=== PATIENT | male | born 1955 | race Caucasian/White ===

== ENCOUNTER 2019-01-10 02:21 | Inpatient (IN) | payer MEDICARE, MEDICAID ==
[2019-01-10 03:21] LABS: % BASOPHILS 0.5 % (0.0-2.0); % EOSINOPHILS 0.7 % (0.0-5.0); % LYMPHOCYTES 26.1 % (20.0-50.0); % NEUTROPHILS 62.7 % (40.0-80.0); HEMATOCRIT 51.6 % (41.0-60); HEMOGLOBIN 17.7 gm/dL (12-16); LYMPHOCYTE ABSOLUTE 1.4 Th/cmm (1.5-3.0); MEAN CELL VOLUME 101.6 fl (80-99); MEAN CORPUSCULAR HEMOGLOBIN 34.8 pg (27.0-31.0); MEAN CORPUSCULAR HGB CONC 34.2 pg (28.0-36.0); MEAN PLATELET VOLUME 7.9 fl; MONOCYTE ABSOLUTE 0.6 Th/cmm (0.3-1.0); NEUTROPHILE ABSOLUTE 3.5 Th/cmm (1.8-8.0); PLATELET COUNT 154 Th/cmm (150-400); RED BLOOD COUNT 5.08 Mil/cmm (3.80-5.80); RED CELL DISTRIBUTION WIDTH 14.1 % (11.5-20.0); WHITE BLOOD COUNT 5.5 Th/cmm (4.8-10.8)
[2019-01-10 03:36] LABS: ALB/GLOB RATIO 1.4 (1.0-1.8); ALBUMIN 3.6 gm/dL (4.2-5.5); ALKALINE PHOSPHATASE 121 U/L (34-104); ANION GAP 17.1 (7.0-16.0); BUN - UREA NITROGEN 12 mg/dL (7-25); CALCIUM SERUM 8.5 mg/dL (8.6-10.3); CARBON DIOXIDE 22.9 mEq/L (21.0-31.0); CHLORIDE 99 mEq/L (98-107); CREATININE - SERUM 0.9 mg/dL (0.7-1.3); CREATININE KINASE 222 U/L (30-223); GFR AFRICAN-AMERICAN > 60.0 ml/min (>90); GFR NON AFRICAN-AMERICAN > 60.0 ml/min; GLUCOSE 224 mg/dL (70-105); SGOT 108 U/L (13-39); SGPT/ALT 66 U/L (7-52); SODIUM SERUM 136 mEq/L (136-145); TOTAL PROTEIN,SERUM 6.2 gm/dL (6.0-8.3)
[2019-01-10] MEDS ORDERED: Potassium Chloride 20 mEq ER Tab PO ONE ×2 (03:38→03:41)
[2019-01-10 03:48] LABS: URINE SOURCE RANDOM
[2019-01-10 03:50] LABS: URINE BILIRUBIN NEGATIVE (NEGATIVE); URINE BLOOD SMALL (NEGATIVE); URINE GLUCOSE (UA) 100 mg/dL (NEGATIVE); URINE KETONE TRACE mg/dL (NEGATIVE); URINE LEUKOCYTE ESTERASE SMALL (NEGATIVE); URINE MICROSCOPIC INDICATED? YES; URINE NITRATE POSITIVE (NEGATIVE); URINE PH 7.5 (4.6 - 8.0); URINE PROTEIN >=300 mg/dL (NEGATIVE)
[2019-01-10 04:06] LABS: URINE CLARITY CLOUDY (CLEAR); URINE COLOR YELLOW
[2019-01-10 04:08] LABS: URINE BACTERIA FEW /hpf (NONE SEEN); URINE EPITHELIAL CELLS RARE /lpf (FEW); URINE RBC 0-2 /hpf (0-5)
--- NOTE | 2019-01-10 04:14 | ED Physician Chart ---
ED Chief Complaint/HPI - Patient Information Date Seen:: 01/10/19 Time Seen:: 04:13 Chief Complaint:: Sexually inappropriate behavior History of Present Illness:: 63 yo male with history of hypertension and stroke, was a previous resident at [facility]. Due to inappropriate sexual behavior, patient received a restraining order from entering [facility]. Patient became homeless and unable to take care of himself. Patient drank some alcohol earlier today and was put on 5150 hold for gravely disabled by police. Patient was then brought by police to ER for further evaluation and management. Allergies:: Allergies Allergy/AdvReac Type Severity Reaction Status Date / Time No Known Allergies Allergy Verified 01/10/19 02:35 Vitals:: Vital Signs - 8 hr 01/10/19 01/10/19 01/10/19 02:25 02:52 03:43 Temp 98.0 F HR 106 98 96 RR 20 18 BP 182/113 151/100 O2 Sat % 98 97 ED Review of Systems - Review of Systems General/Constitutional: No fever, No chills, Weakness Skin: No bruising Head: No headache Eyes: No pain ENT: No nasal drainage Neck: No neck pain Cardio Vascular: No chest pain Pulmonary: No SOB GI: No nausea, No vomiting G/U: Other (urinary incontinent) Musculoskeletal: No bone or joint pain Neurological: Weakness ED Past Medical History - Past Medical History Past Medical History: HTN, CVA/TIA Social History: Smoker (Former smoker), No Alcohol, No Drug Use Surgical History: other (Stomach surgery due to ulcers, s/p tracheostomy) Family Medical History - Family Member Mother History Unknown: Yes ED Physical Exam - Physical Examination General/Constitutional: Awake, Alert Head: Atraumatic Eyes: PERRL, EOMI Skin: No ecchymosis ENMT: Nasal exam nl Neck: No nuchal rigidity Respiratory: Clear to Auscultation, No Wheeze/Rhonchi/Rales Cardio Vascular: RRR, No murmur, gallop, rubs, NL S1 S2 GI: No tenderness/rebounding/guarding Other comments:: Urinary incontinent Extremities: No tenderness or effusion Other Neuro/Psych comments:: Weakness of BLE ED Labs/Radiology/EKG Results - Lab Results Results: Laboratory Tests 01/10/19 01/10/19 01/10/19 03:10 03:10 03:10 WBC 5.5 RBC 5.08 Hgb 17.7 Hct 51.6 MCV 101.6 H MCH 34.8 H MCHC Differential 34.2 RDW 14.1 Plt Count 154 MPV 7.9 Neutrophils % 62.7 Lymphocytes % 26.1 Monocytes % 10.0 Eosinophils % 0.7 Basophils % 0.5 Sodium Potassium Chloride Carbon Dioxide Anion Gap BUN Creatinine Est GFR ( Amer) Est GFR (Non-Af Amer) BUN/Creatinine Ratio Glucose Calcium Total Bilirubin AST ALT Alkaline Phosphatase Creatine Kinase Troponin I 0.04 Total Protein Albumin Globulin Albumin/Globulin Ratio Urine Source Urine Color Urine Clarity Urine pH Ur Specific [place] Urine Protein Urine Glucose (UA) Urine Ketones Urine Blood Urine Nitrate Urine Bilirubin Urine Urobilinogen Ur Leukocyte Esterase Urine RBC Urine WBC Ur Epithelial Cells Urine Bacteria Ethyl Alcohol 103 H 01/10/19 01/10/19 03:10 03:35 WBC RBC Hgb Hct MCV MCH MCHC Differential RDW Plt Count MPV Neutrophils % Lymphocytes % Monocytes % Eosinophils % Basophils % Sodium 136 Potassium 3.0 L Chloride 99 Carbon Dioxide 22.9 Anion Gap 17.1 H BUN 12 Creatinine 0.9 Est GFR ( Amer) > 60.0 Est GFR (Non-Af Amer) > 60.0 BUN/Creatinine Ratio 13.3 Glucose 224 H Calcium 8.5 L Total Bilirubin 2.0 H AST 108 H ALT 66 H Alkaline Phosphatase 121 H Creatine Kinase 222 Troponin I Total Protein 6.2 Albumin 3.6 L Globulin 2.6 Albumin/Globulin Ratio 1.4 Urine Source RANDOM Urine Color YELLOW Urine Clarity CLOUDY Urine pH 7.5 Ur Specific [place] 1.025 Urine Protein >=300 Urine Glucose (UA) 100 H Urine Ketones TRACE Urine Blood SMALL H Urine Nitrate POSITIVE H Urine Bilirubin NEGATIVE Urine Urobilinogen 2.0 Ur Leukocyte Esterase SMALL H Urine RBC 0-2 H Urine WBC 6-10 Ur Epithelial Cells RARE Urine Bacteria FEW Ethyl Alcohol ED Assessment - Assessment General Assessment: Hypertension Hypokalemia Urinary tract infection Transaminitis due to alcohol use Polysubstance use History of stroke S/p tracheotomy On 515 hold for gravely disabled Assessment/Comments:: CBC, CMP, Troponin, TSH, UA EKG KCL 40 mEq PO Clonidine 0.1 mg PO Keflex 500 mg PO Admit to geropsych unit for further evaluation and management ED Septic Shock - . Is Septic Shock (SBP<90, OR Lactate>4 mmol\L) present?: No - <6hrs of presentation: Vital Signs: Vital Signs - 8 hr 01/10/19 01/10/19 01/10/19 02:25 02:52 03:43 Temp 98.0 F HR 106 98 96 RR 20 18 BP 182/113 151/100 O2 Sat % 98 97 ED Reassessment (Disposition) - Reassessment Reassessment Condition:: Improved - Patient Disposition Discharge/Transfer:: [facility]/in this hosp Admitting Medical Physician:: Braulio Ramirez Admitting Psych Physician:: Je Mckinley
[2019-01-10 05:00] VITALS: BP 179/98
[2019-01-10] MEDS ORDERED: Magnesium Hydroxide (MOM) 30 mL UDC PO PRN (05:02)
--- NOTE | 2019-01-10 06:35 | History and Physical ---
History of Present Illness - HPI Chief Complaint: psychosis HPI: 63 yo male presents to [facility] with change in behavior noted by the staff at [facility]. Patient has a previous medical history of hypertension and stroke. Patient received a restraining order from entering [facility] due to inappropriate sexual behavior. Patient became homeless and unable to take care of himself. Patient drank some alcohol earlier today and was put on 5150 hold for gravely disabled by police. Patient was then brought by police to ER for further evaluation and management. While in the ER patient had initial labwork which revealed the following WBC 5.5 H/H 17/51 plat 154k Na 136 K 3.0 Bun/Cr 12/0.9 glu 224 AST 108 ALT 66 Alk 121 UA blood small Leuko small Nitrite pos ethyl alcohol 103 Patient was subsequently admitted for further evaluation and treatment. Vital Signs: Last Vital Signs Temp 97.2 F 01/10/19 04:35 Pulse 103 01/10/19 04:35 Resp 20 01/10/19 04:35 BP 179/98 01/10/19 05:00 Pulse Ox 94 01/10/19 04:35 Past Medical History Cardiovascular: Report: HTN [employer]: Report: CVA GI: Report: No Pertinent Hx Psych: Report: Psychosis Musculoskeletal: Report: Other (contractures to the upper and lower ext) Rheumatologic: Report: No pertinent Hx Infectious Disease: Report: No Pertinent Hx Renal/: Report: No Pertinent Hx Endocrine: Report: No Pertinent Hx Dermatology: Report: No Pertinent Hx - Past Surgical History Past Surgical History: No pertinent Hx Family Medical History - Family Member Mother History Unknown: Yes Ethnicity: Social History Smoke: No Alcohol: None Drugs: None Lives: Homeless - Medications Home Medications: Home Medication Medication Instructions Recorded Type NK [No Home Meds] 01/10/19 History - Allergies Allergies/Adverse Reactions: Allergies Allergy/AdvReac Type Severity Reaction Status Date / Time No Known Allergies Allergy Verified 01/10/19 04:59 Review of Systems - Review of Systems Constitutional: Report: No Significant Eyes: Report: No Significant ENT: Report: No Significant Respiratory: Report: No Significant Cardiovascular: Report: No Significant Gastrointestinal: Report: No Significant Genitourinary: Report: No Significant Musculoskeletal: Report: No Significant Skin: Report: No Significant Neurological: Report: Weakness (contractures to left upper extremities) Physical Exam - Physical Exam HEENT: Report: Ears Nose Throat within normal limits, Pharnyx within normal limits Neck: Report: Within normal limits Cardiovascular Systems: Report: +s1/s2 noted, Regular, Rate and Rhythm Respiratory: Report: Breath Sounds are within normal limits Abdomen: Report: Non-tender to palpation Back: Report: Inspection of back is within normal limits. Extremities: Report: Non-tender to palpation. Skin: Report: Color of skin is within normal limits Neuro/Psych: Report: Mood affect is within normal limits, A+Ox3 - Lab Results All Lab Results last 24 hours: Laboratory Results - last 24 hr 01/10/19 01/10/19 01/10/19 03:10 03:10 03:10 WBC 5.5 RBC 5.08 Hgb 17.7 Hct 51.6 MCV 101.6 H MCH 34.8 H MCHC Differential 34.2 RDW 14.1 Plt Count 154 MPV 7.9 Neutrophils % 62.7 Lymphocytes % 26.1 Monocytes % 10.0 Eosinophils % 0.7 Basophils % 0.5 Sodium Potassium Chloride Carbon Dioxide Anion Gap BUN Creatinine Est GFR ( Amer) Est GFR (Non-Af Amer) BUN/Creatinine Ratio Glucose Calcium Total Bilirubin AST ALT Alkaline Phosphatase Creatine Kinase Troponin I 0.04 Total Protein Albumin Globulin Albumin/Globulin Ratio TSH 0.35 Urine Source Urine Color Urine Clarity Urine pH Ur Specific [place] Urine Protein Urine Glucose (UA) Urine Ketones Urine Blood Urine Nitrate Urine Bilirubin Urine Urobilinogen Ur Leukocyte Esterase Urine RBC Urine WBC Ur Epithelial Cells Urine Bacteria Ethyl Alcohol 01/10/19 01/10/19 01/10/19 03:10 03:10 03:35 WBC RBC Hgb Hct MCV MCH MCHC Differential RDW Plt Count MPV Neutrophils % Lymphocytes % Monocytes % Eosinophils % Basophils % Sodium 136 Potassium 3.0 L Chloride 99 Carbon Dioxide 22.9 Anion Gap 17.1 H BUN 12 Creatinine 0.9 Est GFR ( Amer) > 60.0 Est GFR (Non-Af Amer) > 60.0 BUN/Creatinine Ratio 13.3 Glucose 224 H Calcium 8.5 L Total Bilirubin 2.0 H AST 108 H ALT 66 H Alkaline Phosphatase 121 H Creatine Kinase 222 Troponin I Total Protein 6.2 Albumin 3.6 L Globulin 2.6 Albumin/Globulin Ratio 1.4 TSH Urine Source RANDOM Urine Color YELLOW Urine Clarity CLOUDY Urine pH 7.5 Ur Specific [place] 1.025 Urine Protein >=300 Urine Glucose (UA) 100 H Urine Ketones TRACE Urine Blood SMALL H Urine Nitrate POSITIVE H Urine Bilirubin NEGATIVE Urine Urobilinogen 2.0 Ur Leukocyte Esterase SMALL H Urine RBC 0-2 H Urine WBC 6-10 Ur Epithelial Cells RARE Urine Bacteria FEW Ethyl Alcohol 103 H - Assessment Assessment: psychosis UTI hypokalemia alcohol intoxication HTN CVA insomnia constipation - Plan Plan: admit to [facility] start cipro 500mg PO bid K 40meq PO daily
[2019-01-10] MEDS: Multivitamin Tab PO SCH (09:14)
--- NOTE | 2019-01-11 07:09 | Psychiatric Evaluation ---
DATE OF SERVICE: 01/10/2019 CHIEF COMPLAINT: "He was crying." HISTORY OF PRESENT ILLNESS: A 63-year-old male with history of hypertension, stroke, somewhat difficult to understand. The patient brought in due to apparently inappropriate sexual behavior, has received a restraining order from [facility]. The patient is drinking alcohol, not making any sense, concerns about his ability to really care for his basic needs. The patient yelling and stating he wants to leave immediately. The patient apparently also has a restraining order from another patient's family. The patient is angry, uncooperative and noted to be agitated upon assessment. PAST PSYCHIATRIC HISTORY: Unclear. FAMILY HISTORY: Unclear. SOCIAL HISTORY: Unclear. Apparently and possibly homeless. MEDICATIONS: Noted. MENTAL STATUS EXAMINATION: Stated age. Speech is hard to understand. Mood "okay." Affect upset. Thought processes were hard to assess and hard to follow. No overt SI or HI. Poor impulse control. No overt psychotic symptoms. PROVISIONAL DIAGNOSES: Mood, unspecified and anxiety, unspecified. Under medical, please see full H and P ESTIMATED LENGTH OF STAY: 5-7 days. ASSESSMENT: The patient requiring hospitalization for unruly behaviors, agitated behaviors, unable to be cared for at a lower level of care. PLAN: We will continue to monitor, titrate and adjust medications. Increase collateral. [facility]# [id number]
[2019-01-11] MEDS: Multivitamin Tab PO SCH (08:50)
[2019-01-11] MEDS: Maalox 30 mL Cup PO PRN (13:07)
--- NOTE | 2019-01-12 01:52 | Progress Notes ---
DATE: 01/11/2019 SUBJECTIVE: The patient currently in the hospital for inappropriate behaviors, mostly withdrawn, keeps to himself. Staff noting that he is suspicious of others, very disoriented at times, irritable, making some nonsensical statements. Fair sleep, fair appetite, he is pretty disheveled, unkempt. ASSESSMENT: Ongoing safety concerns. Concerns about his ability to really stay safe at a lower level of care. Concerns about his impulse control. PLAN: We will continue to monitor and initiate medications for mood and impulsivity. We will continue to monitor. [facility]# [id number]
--- NOTE | 2019-01-12 05:45 | General Progress Note ---
Subjective - Review of Systems Service Date: 01/12/19 Subjective: Patient is awake, alert, afebrile VS T 97.6 P 93 BP 150/67 R 18 Objective - Results Result Diagrams: 01/10/19 03:10 01/10/19 03:10 Recent Labs: Laboratory Last Values WBC 5.5 Th/cmm (4.8-10.8) 01/10/19 03:10 RBC 5.08 Mil/cmm (3.80-5.80) 01/10/19 03:10 Hgb 17.7 gm/dL (12-16) 01/10/19 03:10 Hct 51.6 % (41.0-60) 01/10/19 03:10 MCV 101.6 fl (80-99) H 01/10/19 03:10 MCH 34.8 pg (27.0-31.0) H 01/10/19 03:10 MCHC Differential 34.2 pg (28.0-36.0) 01/10/19 03:10 RDW 14.1 % (11.5-20.0) 01/10/19 03:10 Plt Count 154 Th/cmm (150-400) 01/10/19 03:10 MPV 7.9 fl 01/10/19 03:10 Neutrophils % 62.7 % (40.0-80.0) 01/10/19 03:10 Lymphocytes % 26.1 % (20.0-50.0) 01/10/19 03:10 Monocytes % 10.0 % (2.0-10.0) 01/10/19 03:10 Eosinophils % 0.7 % (0.0-5.0) 01/10/19 03:10 Basophils % 0.5 % (0.0-2.0) 01/10/19 03:10 Sodium 136 mEq/L (136-145) 01/10/19 03:10 Potassium 3.0 mEq/L (3.5-5.1) L 01/10/19 03:10 Chloride 99 mEq/L (98-107) 01/10/19 03:10 Carbon Dioxide 22.9 mEq/L (21.0-31.0) 01/10/19 03:10 Anion Gap 17.1 (7.0-16.0) H 01/10/19 03:10 BUN 12 mg/dL (7-25) 01/10/19 03:10 Creatinine 0.9 mg/dL (0.7-1.3) 01/10/19 03:10 Est GFR ( Amer) > 60.0 ml/min (>90) 01/10/19 03:10 Est GFR (Non-Af Amer) > 60.0 ml/min 01/10/19 03:10 BUN/Creatinine Ratio 13.3 01/10/19 03:10 Glucose 224 mg/dL (70-105) H 01/10/19 03:10 Calcium 8.5 mg/dL (8.6-10.3) L 01/10/19 03:10 Total Bilirubin 2.0 mg/dL (0.3-1.0) H 01/10/19 03:10 AST 108 U/L (13-39) H 01/10/19 03:10 ALT 66 U/L (7-52) H 01/10/19 03:10 Alkaline Phosphatase 121 U/L (34-104) H 01/10/19 03:10 Creatine Kinase 222 U/L (30-223) 01/10/19 03:10 Troponin I 0.04 ng/mL (0.01-0.05) 01/10/19 03:10 Total Protein 6.2 gm/dL (6.0-8.3) 01/10/19 03:10 Albumin 3.6 gm/dL (4.2-5.5) L 01/10/19 03:10 Globulin 2.6 gm/dL 01/10/19 03:10 Albumin/Globulin Ratio 1.4 (1.0-1.8) 01/10/19 03:10 TSH 0.35 uIU/ml (0.34-5.60) 01/10/19 03:10 Urine Source RANDOM 01/10/19 03:35 Urine Color YELLOW 01/10/19 03:35 Urine Clarity CLOUDY (CLEAR) 01/10/19 03:35 Urine pH 7.5 (4.6 - 8.0) 01/10/19 03:35 Ur Specific [place] 1.025 (1.005-1.030) 01/10/19 03:35 Urine Protein >=300 mg/dL (NEGATIVE) 01/10/19 03:35 Urine Glucose (UA) 100 mg/dL (NEGATIVE) H 01/10/19 03:35 Urine Ketones TRACE mg/dL (NEGATIVE) 01/10/19 03:35 Urine Blood SMALL (NEGATIVE) H 01/10/19 03:35 Urine Nitrate POSITIVE (NEGATIVE) H 01/10/19 03:35 Urine Bilirubin NEGATIVE (NEGATIVE) 01/10/19 03:35 Urine Urobilinogen 2.0 E.U./dL (0.2 - 1.0) 01/10/19 03:35 Ur Leukocyte Esterase SMALL (NEGATIVE) H 01/10/19 03:35 Urine RBC 0-2 /hpf (0-5) H 01/10/19 03:35 Urine WBC 6-10 /hpf (0-5) 01/10/19 03:35 Ur Epithelial Cells RARE /lpf (FEW) 01/10/19 03:35 Urine Bacteria FEW /hpf (NONE SEEN) 01/10/19 03:35 Ethyl Alcohol 103 mg/dL (0-10) H 01/10/19 03:10 - Physical Exam Vitals and I&O: Vital Signs Temp 97.6 F 01/11/19 20:53 Pulse 93 01/11/19 20:53 Resp 18 01/11/19 20:53 BP 150/97 01/11/19 20:53 Pulse Ox 96 01/11/19 20:53 Intake & Output 01/11/19 01/11/19 01/12/19 06:59 18:59 06:59 Intake Total 120 1400 Balance 120 1400 Intake: Oral 120 1400 Other: # Voids 3 4 # Bowel Movements 1 Stool Characteristics Formed Active Medications: Current Medications Acetaminophen (Tylenol) 650 mg PO Q4HR PRN PRN Reason: Mild Pain / Temp above 100 Stop: 03/11/19 05:01 Al Hydrox/Mg Hydrox/Simethicone (Maalox) 30 ml PO Q4HR PRN PRN Reason: GI DISTRESS Stop: 03/11/19 05:01 Last Admin: 01/11/19 13:07 Dose: 30 ml Escitalopram Oxalate (Lexapro) 5 mg PO DAILY [facility]A; Protocol Stop: 03/13/19 08:59 Lorazepam (Ativan) 0.5 mg PO Q4HR PRN; Protocol PRN Reason: Anxiety Stop: 02/09/19 05:01 Last Admin: 01/10/19 21:00 Dose: 0.5 mg Multivitamins/Vitamin C (Theragran) 1 tab PO DAILY MILA Stop: 03/11/19 08:59 Last Admin: 01/11/19 08:50 Dose: 1 tab Zolpidem Tartrate (Ambien) 5 mg PO HS PRN PRN Reason: Insomnia Stop: 03/11/19 05:01 Last Admin: 01/10/19 21:00 Dose: 5 mg General: Alert, No acute distress HEENT: Atraumatic, PERRLA, EOMI Neck: Supple Cardiovascular: Regular rate, Normal S1, Normal S2 Lungs: Clear to auscultation Abdomen: Bowel sounds Extremities: no Clubbing, no Cyanosis Assessment/Plan - Assessment Assessment: psychosis ativan insomnia constipation elevated BP - Plan Plan: admit to [facility] add clonidine
[2019-01-12] MEDS ORDERED: Potassium Chloride 20 mEq ER Tab PO SCH (09:00)
[2019-01-12] MEDS: Multivitamin Tab PO SCH (09:29)
[2019-01-12] MEDS: Escitalopram Oxalate 5 mg Tab PO SCH (09:29)
[2019-01-12] MEDS: Therahoney Gel 42.5gm Tube TP SCH (17:49)
[2019-01-12] MEDS ORDERED: Magnesium Hydroxide (MOM) 30 mL UDC PO PRN (21:17)
--- NOTE | 2019-01-13 03:18 | Progress Notes ---
DATE: 01/12/2019 SUBJECTIVE: The patient slept for about 6 hours last night, making some statements about his history, why is here, but it is really hard to understand his thought processes, not making too much sense, currently in the hospital because of bizarre behaviors, hypersexual behaviors. He remains preoccupied, lethargic, suspicious of others, needing high level of prompting, redirection, help. He remains impulsive, unpredictable, recent dose initiation of Lexapro. PLAN: We will continue to monitor. MEDICATIONS: Noted. Ongoing safety concerns. JOB# [id number]
--- NOTE | 2019-01-13 05:49 | General Progress Note ---
Subjective - Review of Systems Service Date: 01/13/19 Subjective: Patient is awake, alert, afebrile VS T 97.4 P 96 BP 170/102 R 20 Objective - Results Result Diagrams: 01/10/19 03:10 01/10/19 03:10 Recent Labs: Laboratory Last Values WBC 5.5 Th/cmm (4.8-10.8) 01/10/19 03:10 RBC 5.08 Mil/cmm (3.80-5.80) 01/10/19 03:10 Hgb 17.7 gm/dL (12-16) 01/10/19 03:10 Hct 51.6 % (41.0-60) 01/10/19 03:10 MCV 101.6 fl (80-99) H 01/10/19 03:10 MCH 34.8 pg (27.0-31.0) H 01/10/19 03:10 MCHC Differential 34.2 pg (28.0-36.0) 01/10/19 03:10 RDW 14.1 % (11.5-20.0) 01/10/19 03:10 Plt Count 154 Th/cmm (150-400) 01/10/19 03:10 MPV 7.9 fl 01/10/19 03:10 Neutrophils % 62.7 % (40.0-80.0) 01/10/19 03:10 Lymphocytes % 26.1 % (20.0-50.0) 01/10/19 03:10 Monocytes % 10.0 % (2.0-10.0) 01/10/19 03:10 Eosinophils % 0.7 % (0.0-5.0) 01/10/19 03:10 Basophils % 0.5 % (0.0-2.0) 01/10/19 03:10 Sodium 136 mEq/L (136-145) 01/10/19 03:10 Potassium 3.0 mEq/L (3.5-5.1) L 01/10/19 03:10 Chloride 99 mEq/L (98-107) 01/10/19 03:10 Carbon Dioxide 22.9 mEq/L (21.0-31.0) 01/10/19 03:10 Anion Gap 17.1 (7.0-16.0) H 01/10/19 03:10 BUN 12 mg/dL (7-25) 01/10/19 03:10 Creatinine 0.9 mg/dL (0.7-1.3) 01/10/19 03:10 Est GFR ( Amer) > 60.0 ml/min (>90) 01/10/19 03:10 Est GFR (Non-Af Amer) > 60.0 ml/min 01/10/19 03:10 BUN/Creatinine Ratio 13.3 01/10/19 03:10 Glucose 224 mg/dL (70-105) H 01/10/19 03:10 Calcium 8.5 mg/dL (8.6-10.3) L 01/10/19 03:10 Total Bilirubin 2.0 mg/dL (0.3-1.0) H 01/10/19 03:10 AST 108 U/L (13-39) H 01/10/19 03:10 ALT 66 U/L (7-52) H 01/10/19 03:10 Alkaline Phosphatase 121 U/L (34-104) H 01/10/19 03:10 Creatine Kinase 222 U/L (30-223) 01/10/19 03:10 Troponin I 0.04 ng/mL (0.01-0.05) 01/10/19 03:10 Total Protein 6.2 gm/dL (6.0-8.3) 01/10/19 03:10 Albumin 3.6 gm/dL (4.2-5.5) L 01/10/19 03:10 Globulin 2.6 gm/dL 01/10/19 03:10 Albumin/Globulin Ratio 1.4 (1.0-1.8) 01/10/19 03:10 TSH 0.35 uIU/ml (0.34-5.60) 01/10/19 03:10 Urine Source RANDOM 01/10/19 03:35 Urine Color YELLOW 01/10/19 03:35 Urine Clarity CLOUDY (CLEAR) 01/10/19 03:35 Urine pH 7.5 (4.6 - 8.0) 01/10/19 03:35 Ur Specific [place] 1.025 (1.005-1.030) 01/10/19 03:35 Urine Protein >=300 mg/dL (NEGATIVE) 01/10/19 03:35 Urine Glucose (UA) 100 mg/dL (NEGATIVE) H 01/10/19 03:35 Urine Ketones TRACE mg/dL (NEGATIVE) 01/10/19 03:35 Urine Blood SMALL (NEGATIVE) H 01/10/19 03:35 Urine Nitrate POSITIVE (NEGATIVE) H 01/10/19 03:35 Urine Bilirubin NEGATIVE (NEGATIVE) 01/10/19 03:35 Urine Urobilinogen 2.0 E.U./dL (0.2 - 1.0) 01/10/19 03:35 Ur Leukocyte Esterase SMALL (NEGATIVE) H 01/10/19 03:35 Urine RBC 0-2 /hpf (0-5) H 01/10/19 03:35 Urine WBC 6-10 /hpf (0-5) 01/10/19 03:35 Ur Epithelial Cells RARE /lpf (FEW) 01/10/19 03:35 Urine Bacteria FEW /hpf (NONE SEEN) 01/10/19 03:35 Ethyl Alcohol 103 mg/dL (0-10) H 01/10/19 03:10 RPR NONREACTIVE (NONREACTIVE) 01/10/19 03:10 - Physical Exam Vitals and I&O: Vital Signs Temp 97.4 F 01/12/19 20:00 Pulse 96 01/12/19 20:00 Resp 20 01/12/19 20:00 BP 170/102 01/12/19 20:00 Pulse Ox 96 01/12/19 20:00 Intake & Output 01/12/19 01/12/19 01/13/19 06:59 18:59 06:59 Intake Total 120 1500 Balance 120 1500 Intake: Oral 120 1500 Other: # Voids 3 3 # Bowel Movements 0 0 0 Stool Characteristics Formed Formed Active Medications: Current Medications Acetaminophen (Tylenol) 650 mg PO Q4HR PRN PRN Reason: Mild Pain / Temp above 100 Stop: 03/11/19 05:01 Al Hydrox/Mg Hydrox/Simethicone (Maalox) 30 ml PO Q4HR PRN PRN Reason: GI DISTRESS Stop: 03/11/19 05:01 Last Admin: 01/11/19 13:07 Dose: 30 ml Ciprofloxacin (Cipro) 500 mg PO BID [facility] Stop: 03/13/19 08:59 Last Admin: 01/12/19 17:49 Dose: 500 mg Escitalopram Oxalate (Lexapro) 5 mg PO DAILY [facility]; Protocol Stop: 03/13/19 08:59 Last Admin: 01/12/19 09:29 Dose: 5 mg Lorazepam (Ativan) 0.5 mg PO Q4HR PRN; Protocol PRN Reason: Anxiety Stop: 02/09/19 05:01 Last Admin: 01/12/19 17:49 Dose: 0.5 mg Magnesium Hydroxide (Milk Of Magnesia) 30 ml PO HS PRN PRN Reason: Constipation Stop: 03/13/19 21:16 Last Admin: 01/12/19 21:28 Dose: 30 ml Multivitamins/Vitamin C (Theragran) 1 tab PO DAILY [facility] Stop: 03/11/19 08:59 Last Admin: 01/12/19 09:29 Dose: 1 tab Wound Care/Dressing Products (Therahoney) 1 appl TP DAILY MIL[facility] Stop: 03/13/19 17:14 Last Admin: 01/12/19 17:49 Dose: 1 appl Zolpidem Tartrate (Ambien) 5 mg PO HS PRN PRN Reason: Insomnia Stop: 03/11/19 05:01 Last Admin: 01/12/19 21:28 Dose: 5 mg General: Alert, No acute distress HEENT: Atraumatic, PERRLA, EOMI Neck: Supple Cardiovascular: Regular rate, Normal S1, Normal S2 Lungs: Clear to auscultation Abdomen: Bowel sounds Extremities: no Clubbing, no Cyanosis Assessment/Plan - Assessment Assessment: psychosis UTI hypokalemia alcohol intoxication HTN elevated CVA insomnia constipation - Plan [facility] 500mg PO bid K 40meq PO daily will add clonidine PRN
[2019-01-13] MEDS: Multivitamin Tab PO SCH (08:48)
[2019-01-13] MEDS: Escitalopram Oxalate 5 mg Tab PO SCH (08:49)
[2019-01-13] MEDS: Therahoney Gel 42.5gm Tube TP SCH (08:49)
[2019-01-13 15:19] LABS: ANION GAP 11.9 (7.0-16.0); BUN - UREA NITROGEN 20 mg/dL (7-25); CALCIUM SERUM 9.1 mg/dL (8.6-10.3); CARBON DIOXIDE 24.8 mEq/L (21.0-31.0); CHLORIDE 103 mEq/L (98-107); GFR AFRICAN-AMERICAN > 60.0 ml/min (>90); GFR NON AFRICAN-AMERICAN > 60.0 ml/min; GLUCOSE 237 mg/dL (70-105); POTASSIUM SERUM 3.7 mEq/L (3.5-5.1); SODIUM SERUM 136 mEq/L (136-145)
[2019-01-13] MEDS ORDERED: Probiotic Screen MC PRN (15:36)
[2019-01-13] MEDS: Maalox 30 mL Cup PO PRN (17:22)
[2019-01-13] MEDS: Lactobacillus Rhamnosus GG 15 Billion CFU CAP.SPRINK PO SCH (18:00)
--- NOTE | 2019-01-14 00:21 | Progress Notes ---
DATE: 01/13/2019 PSYCHIATRIC PROGRESS NOTE SUBJECTIVE: Chart was reviewed and the patient interviewed. Also discussed the patient's condition with the staff and reviewed records and labs. Dr. Velazquez covering for Dr. Mckinley. The patient is alert and oriented x 3. The patient gets aggressive and is still in angry and irritable mood, and he left the [facility] in angry and irritable mood, and then was brought into the hospital because of increased paranoia and also disoriented at times. The patient is still having episodes of feeling paranoia and also angry and easily agitated. The patient also is nonsensical and making nonsensical statements. The patient also had sexually inappropriate behavior at times, but not since his admission. ASSESSMENT: The patient is still in angry mood and agitated. TREATMENT PLAN: The patient started on Lexapro 5 mg every day and Ativan on a p.r.n. basis. We will continue same dose and continue to monitor his behavior closely. JOB# [id number]
[2019-01-14] MEDS: Multivitamin Tab PO SCH (08:52)
[2019-01-14] MEDS: Lactobacillus Rhamnosus GG 15 Billion CFU CAP.SPRINK PO SCH (08:54)
[2019-01-14] MEDS: Escitalopram Oxalate 5 mg Tab PO SCH (08:54)
[2019-01-14] MEDS: Maalox 30 mL Cup PO PRN ×3 (08:55→18:12)
--- NOTE | 2019-01-14 09:06 | General Progress Note ---
Subjective - Review of Systems Service Date: 01/14/19 Subjective: Patient is awake, alert, afebrile Blood sugars elevated 200's VS T 98.1 P 90 BP 148/94 R 20 Objective - Results Result Diagrams: 01/10/19 03:10 01/13/19 15:00 Recent Labs: Laboratory Last Values WBC 5.5 Th/cmm (4.8-10.8) 01/10/19 03:10 RBC 5.08 Mil/cmm (3.80-5.80) 01/10/19 03:10 Hgb 17.7 gm/dL (12-16) 01/10/19 03:10 Hct 51.6 % (41.0-60) 01/10/19 03:10 MCV 101.6 fl (80-99) H 01/10/19 03:10 MCH 34.8 pg (27.0-31.0) H 01/10/19 03:10 MCHC Differential 34.2 pg (28.0-36.0) 01/10/19 03:10 RDW 14.1 % (11.5-20.0) 01/10/19 03:10 Plt Count 154 Th/cmm (150-400) 01/10/19 03:10 MPV 7.9 fl 01/10/19 03:10 Neutrophils % 62.7 % (40.0-80.0) 01/10/19 03:10 Lymphocytes % 26.1 % (20.0-50.0) 01/10/19 03:10 Monocytes % 10.0 % (2.0-10.0) 01/10/19 03:10 Eosinophils % 0.7 % (0.0-5.0) 01/10/19 03:10 Basophils % 0.5 % (0.0-2.0) 01/10/19 03:10 Sodium 136 mEq/L (136-145) 01/13/19 15:00 Potassium 3.7 mEq/L (3.5-5.1) 01/13/19 15:00 Chloride 103 mEq/L (98-107) 01/13/19 15:00 Carbon Dioxide 24.8 mEq/L (21.0-31.0) 01/13/19 15:00 Anion Gap 11.9 (7.0-16.0) 01/13/19 15:00 BUN 20 mg/dL (7-25) 01/13/19 15:00 Creatinine 1.0 mg/dL (0.7-1.3) 01/13/19 15:00 Est GFR ( Amer) > 60.0 ml/min (>90) 01/13/19 15:00 Est GFR (Non-Af Amer) > 60.0 ml/min 01/13/19 15:00 BUN/Creatinine Ratio 20.0 01/13/19 15:00 Glucose 237 mg/dL (70-105) H 01/13/19 15:00 Calcium 9.1 mg/dL (8.6-10.3) 01/13/19 15:00 Total Bilirubin 2.0 mg/dL (0.3-1.0) H 01/10/19 03:10 AST 108 U/L (13-39) H 01/10/19 03:10 ALT 66 U/L (7-52) H 01/10/19 03:10 Alkaline Phosphatase 121 U/L (34-104) H 01/10/19 03:10 Creatine Kinase 222 U/L (30-223) 01/10/19 03:10 Troponin I 0.04 ng/mL (0.01-0.05) 01/10/19 03:10 Total Protein 6.2 gm/dL (6.0-8.3) 01/10/19 03:10 Albumin 3.6 gm/dL (4.2-5.5) L 01/10/19 03:10 Globulin 2.6 gm/dL 01/10/19 03:10 Albumin/Globulin Ratio 1.4 (1.0-1.8) 01/10/19 03:10 TSH 0.35 uIU/ml (0.34-5.60) 01/10/19 03:10 Urine Source RANDOM 01/10/19 03:35 Urine Color YELLOW 01/10/19 03:35 Urine Clarity CLOUDY (CLEAR) 01/10/19 03:35 Urine pH 7.5 (4.6 - 8.0) 01/10/19 03:35 Ur Specific [place] 1.025 (1.005-1.030) 01/10/19 03:35 Urine Protein >=300 mg/dL (NEGATIVE) 01/10/19 03:35 Urine Glucose (UA) 100 mg/dL (NEGATIVE) H 01/10/19 03:35 Urine Ketones TRACE mg/dL (NEGATIVE) 01/10/19 03:35 Urine Blood SMALL (NEGATIVE) H 01/10/19 03:35 Urine Nitrate POSITIVE (NEGATIVE) H 01/10/19 03:35 Urine Bilirubin NEGATIVE (NEGATIVE) 01/10/19 03:35 Urine Urobilinogen 2.0 E.U./dL (0.2 - 1.0) 01/10/19 03:35 Ur Leukocyte Esterase SMALL (NEGATIVE) H 01/10/19 03:35 Urine RBC 0-2 /hpf (0-5) H 01/10/19 03:35 Urine WBC 6-10 /hpf (0-5) 01/10/19 03:35 Ur Epithelial Cells RARE /lpf (FEW) 01/10/19 03:35 Urine Bacteria FEW /hpf (NONE SEEN) 01/10/19 03:35 Ethyl Alcohol 103 mg/dL (0-10) H 01/10/19 03:10 RPR NONREACTIVE (NONREACTIVE) 01/10/19 03:10 - Physical Exam Vitals and I&O: Vital Signs Temp 98.1 F 01/14/19 05:57 Pulse 90 01/14/19 05:57 Resp 20 01/14/19 05:57 BP 148/94 01/14/19 05:57 Pulse Ox 96 01/14/19 05:57 Intake & Output 01/13/19 01/14/19 01/14/19 18:59 06:59 18:59 Intake Total 1000 480 Output Total 1 Balance 1000 479 Intake: Oral 1000 480 Output: Urine/Stool Mix 1 Other: # Voids 5 1 # Bowel Movements 0 1 Active Medications: Current Medications Acetaminophen (Tylenol) 650 mg PO Q4HR PRN PRN Reason: Mild Pain / Temp above 100 Stop: 03/11/19 05:01 Al Hydrox/Mg Hydrox/Simethicone (Maalox) 30 ml PO Q4HR PRN PRN Reason: GI DISTRESS Stop: 03/11/19 05:01 Last Admin: 01/14/19 08:55 Dose: 30 ml Ciprofloxacin (Cipro) 500 mg PO BID MILA Stop: 03/13/19 08:59 Last Admin: 01/14/19 08:53 Dose: 500 mg Escitalopram Oxalate (Lexapro) 5 mg PO DAILY MILA; Protocol Stop: 03/13/19 08:59 Last Admin: 01/14/19 08:54 Dose: 5 mg Lactobacillus Rhamnosus (Culturelle 15b) 1 each PO DAILY MILA Stop: 03/14/19 15:59 Last Admin: 01/14/19 08:54 Dose: 1 each Lorazepam (Ativan) 0.5 mg PO Q4HR PRN; Protocol PRN Reason: Anxiety Stop: 02/09/19 05:01 Last Admin: 01/14/19 08:54 Dose: 0.5 mg Magnesium Hydroxide (Milk Of Magnesia) 30 ml PO HS PRN PRN Reason: Constipation Stop: 03/13/19 21:16 Last Admin: 01/12/19 21:28 Dose: 30 ml Metformin HCl (Glucophage) 500 mg PO BIDWM MILA Stop: 03/15/19 17:59 Miscellaneous (Probiotic Screen) 1 ea MC PRN PRN PRN Reason: PROTOCOL Stop: 03/14/19 15:35 Multivitamins/Vitamin C (Theragran) 1 tab PO DAILY MILA Stop: 03/11/19 08:59 Last Admin: 01/14/19 08:52 Dose: 1 tab Wound Care/Dressing Products (Therahoney) 1 appl TP DAILY MILA Stop: 03/13/19 17:14 Last Admin: 01/13/19 08:49 Dose: 1 appl Zolpidem Tartrate (Ambien) 5 mg PO HS PRN PRN Reason: Insomnia Stop: 03/11/19 05:01 Last Admin: 01/13/19 21:17 Dose: 5 mg General: Alert, No acute distress HEENT: Atraumatic, PERRLA, EOMI Neck: Supple Cardiovascular: Regular rate, Normal S1, Normal S2 Lungs: Clear to auscultation Abdomen: Bowel sounds Extremities: no Clubbing, no Cyanosis Assessment/Plan - Assessment Assessment: psychosis UTI on Cipro hypokalemia -- resolved alcohol intoxication HTN elevated .. clonidine added CVA insomnia constipation hyperglycemia ... add Metformin 500mg PO BID - Plan Plan: admit to [facility] start cipro 500mg PO bid K 40meq PO daily will add clonidine PRN will start Metformin 500mg PO BID
[2019-01-14] MEDS: Therahoney Gel 42.5gm Tube TP SCH (17:31)
--- NOTE | 2019-01-14 22:21 | Progress Notes ---
DATE: 01/14/2019 PSYCHIATRIC PROGRESS NOTE SUBJECTIVE: Chart was reviewed and the patient interviewed. Also discussed the patient's condition with the staff and reviewed records and labs. The patient is still having episodes of aggression and irritability. The patient also still has disorganized thoughts and still needs redirections. Also is still having sexual inappropriate behavior at times and making inappropriate sexual comments to nurses. Otherwise, the patient started to take Lexapro 5 mg every day with no side effects. ASSESSMENT: The patient is still agitated and still needs treatment for both his behavior as well as his addiction to alcohol. TREATMENT PLAN: Continue monitoring his behavior and his condition closely and continue adjusting psychotropic medications and followup and work on rehabilitation. JOB# [id number]
--- NOTE | 2019-01-15 08:17 | General Progress Note ---
Subjective - Review of Systems Service Date: 01/15/19 Subjective: Patient is awake, alert, afebrile Blood sugars elevated 200's VS T 97.9 P 78 BP 156/92 R 18 Objective - Results Result Diagrams: 01/10/19 03:10 01/13/19 15:00 Recent Labs: Laboratory Last Values WBC 5.5 Th/cmm (4.8-10.8) 01/10/19 03:10 RBC 5.08 Mil/cmm (3.80-5.80) 01/10/19 03:10 Hgb 17.7 gm/dL (12-16) 01/10/19 03:10 Hct 51.6 % (41.0-60) 01/10/19 03:10 MCV 101.6 fl (80-99) H 01/10/19 03:10 MCH 34.8 pg (27.0-31.0) H 01/10/19 03:10 MCHC Differential 34.2 pg (28.0-36.0) 01/10/19 03:10 RDW 14.1 % (11.5-20.0) 01/10/19 03:10 Plt Count 154 Th/cmm (150-400) 01/10/19 03:10 MPV 7.9 fl 01/10/19 03:10 Neutrophils % 62.7 % (40.0-80.0) 01/10/19 03:10 Lymphocytes % 26.1 % (20.0-50.0) 01/10/19 03:10 Monocytes % 10.0 % (2.0-10.0) 01/10/19 03:10 Eosinophils % 0.7 % (0.0-5.0) 01/10/19 03:10 Basophils % 0.5 % (0.0-2.0) 01/10/19 03:10 Sodium 136 mEq/L (136-145) 01/13/19 15:00 Potassium 3.7 mEq/L (3.5-5.1) 01/13/19 15:00 Chloride 103 mEq/L (98-107) 01/13/19 15:00 Carbon Dioxide 24.8 mEq/L (21.0-31.0) 01/13/19 15:00 Anion Gap 11.9 (7.0-16.0) 01/13/19 15:00 BUN 20 mg/dL (7-25) 01/13/19 15:00 Creatinine 1.0 mg/dL (0.7-1.3) 01/13/19 15:00 Est GFR ( Amer) > 60.0 ml/min (>90) 01/13/19 15:00 Est GFR (Non-Af Amer) > 60.0 ml/min 01/13/19 15:00 BUN/Creatinine Ratio 20.0 01/13/19 15:00 Glucose 237 mg/dL (70-105) H 01/13/19 15:00 Calcium 9.1 mg/dL (8.6-10.3) 01/13/19 15:00 Total Bilirubin 2.0 mg/dL (0.3-1.0) H 01/10/19 03:10 AST 108 U/L (13-39) H 01/10/19 03:10 ALT 66 U/L (7-52) H 01/10/19 03:10 Alkaline Phosphatase 121 U/L (34-104) H 01/10/19 03:10 Creatine Kinase 222 U/L (30-223) 01/10/19 03:10 Troponin I 0.04 ng/mL (0.01-0.05) 01/10/19 03:10 Total Protein 6.2 gm/dL (6.0-8.3) 01/10/19 03:10 Albumin 3.6 gm/dL (4.2-5.5) L 01/10/19 03:10 Globulin 2.6 gm/dL 01/10/19 03:10 Albumin/Globulin Ratio 1.4 (1.0-1.8) 01/10/19 03:10 TSH 0.35 uIU/ml (0.34-5.60) 01/10/19 03:10 Urine Source RANDOM 01/10/19 03:35 Urine Color YELLOW 01/10/19 03:35 Urine Clarity CLOUDY (CLEAR) 01/10/19 03:35 Urine pH 7.5 (4.6 - 8.0) 01/10/19 03:35 Ur Specific [place] 1.025 (1.005-1.030) 01/10/19 03:35 Urine Protein >=300 mg/dL (NEGATIVE) 01/10/19 03:35 Urine Glucose (UA) 100 mg/dL (NEGATIVE) H 01/10/19 03:35 Urine Ketones TRACE mg/dL (NEGATIVE) 01/10/19 03:35 Urine Blood SMALL (NEGATIVE) H 01/10/19 03:35 Urine Nitrate POSITIVE (NEGATIVE) H 01/10/19 03:35 Urine Bilirubin NEGATIVE (NEGATIVE) 01/10/19 03:35 Urine Urobilinogen 2.0 E.U./dL (0.2 - 1.0) 01/10/19 03:35 Ur Leukocyte Esterase SMALL (NEGATIVE) H 01/10/19 03:35 Urine RBC 0-2 /hpf (0-5) H 01/10/19 03:35 Urine WBC 6-10 /hpf (0-5) 01/10/19 03:35 Ur Epithelial Cells RARE /lpf (FEW) 01/10/19 03:35 Urine Bacteria FEW /hpf (NONE SEEN) 01/10/19 03:35 Ethyl Alcohol 103 mg/dL (0-10) H 01/10/19 03:10 RPR NONREACTIVE (NONREACTIVE) 01/10/19 03:10 - Physical Exam Vitals and I&O: Vital Signs Temp 97.9 F 01/15/19 05:56 Pulse 78 01/15/19 05:56 Resp 18 01/15/19 05:56 BP 156/92 01/15/19 05:56 Pulse Ox 93 01/15/19 05:56 Intake & Output 01/14/19 01/15/19 01/15/19 18:59 06:59 18:59 Intake Total 900 300 Output Total 1 Balance 900 299 Intake: Oral 900 300 Output: Urine/Stool Mix 1 Other: # Voids 4 2 # Bowel Movements 0 0 Stool Characteristics Formed Active Medications: Current Medications Acetaminophen (Tylenol) 650 mg PO Q4HR PRN PRN Reason: Mild Pain / Temp above 100 Stop: 03/11/19 05:01 Al Hydrox/Mg Hydrox/Simethicone (Maalox) 30 ml PO Q4HR PRN PRN Reason: GI DISTRESS Stop: 03/11/19 05:01 Last Admin: 01/14/19 18:12 Dose: 30 ml Ciprofloxacin (Cipro) 500 mg PO BID MILA Stop: 03/13/19 08:59 Last Admin: 01/14/19 17:31 Dose: 500 mg Escitalopram Oxalate (Lexapro) 5 mg PO DAILY MILA; Protocol Stop: 03/13/19 08:59 Last Admin: 01/14/19 08:54 Dose: 5 mg Lactobacillus Rhamnosus (Culturelle 15b) 1 each PO DAILY MILA Stop: 03/14/19 15:59 Last Admin: 01/14/19 08:54 Dose: 1 each Lorazepam (Ativan) 0.5 mg PO Q4HR PRN; Protocol PRN Reason: Anxiety Stop: 02/09/19 05:01 Last Admin: 01/14/19 18:11 Dose: 0.5 mg Magnesium Hydroxide (Milk Of Magnesia) 30 ml PO HS PRN PRN Reason: Constipation Stop: 03/13/19 21:16 Last Admin: 01/12/19 21:28 Dose: 30 ml Metformin HCl (Glucophage) 500 mg PO BIDWM MILA Stop: 03/15/19 17:59 Last Admin: 01/14/19 18:10 Dose: 500 mg Miscellaneous (Probiotic Screen) 1 ea MC PRN PRN PRN Reason: PROTOCOL Stop: 03/14/19 15:35 Multivitamins/Vitamin C (Theragran) 1 tab PO DAILY MILA Stop: 03/11/19 08:59 Last Admin: 01/14/19 08:52 Dose: 1 tab Wound Care/Dressing Products (Therahoney) 1 appl TP DAILY MILA Stop: 03/13/19 17:14 Last Admin: 01/14/19 17:31 Dose: 1 appl Zolpidem Tartrate (Ambien) 5 mg PO HS PRN PRN Reason: Insomnia Stop: 03/11/19 05:01 Last Admin: 01/14/19 20:57 Dose: 5 mg General: Alert, No acute distress HEENT: Atraumatic, PERRLA, EOMI Neck: Supple Cardiovascular: Regular rate, Normal S1, Normal S2 Lungs: Clear to auscultation Abdomen: Bowel sounds Extremities: no Clubbing, no Cyanosis Assessment/Plan - Assessment Assessment: psychosis UTI on Cipro hypokalemia -- resolved alcohol intoxication HTN elevated .. clonidine added CVA insomnia constipation hyperglycemia ... add Metformin 500mg PO BID - Plan Plan: admit to [facility] start cipro 500mg PO bid K 40meq PO daily will add clonidine PRN will start Metformin 500mg PO BID
[2019-01-15] MEDS: Therahoney Gel 42.5gm Tube TP SCH (08:39)
[2019-01-15] MEDS: Escitalopram Oxalate 5 mg Tab PO SCH (08:40)
[2019-01-15] MEDS: Lactobacillus Rhamnosus GG 15 Billion CFU CAP.SPRINK PO SCH (08:40)
[2019-01-15] MEDS: Multivitamin Tab PO SCH (08:40)
--- NOTE | 2019-01-16 00:21 | Progress Notes ---
DATE: 01/15/2019 SUBJECTIVE: The patient in the hospital for unruly behaviors, increased agitation, hypersexual behaviors. The patient generally well oriented, difficult to understand, sometimes derails, tangential, mostly isolative, withdrawn. Staff noting he has been generally calm and cooperative. No outbursts. Fair sleep and fair appetite, mostly keeps to himself. PLAN: We will continue to monitor. Medications were noted. We will slowly titrate and adjust medications as tolerated. Increase collateral. JOB# [id number]
[2019-01-16] MEDS ORDERED: GLUCAGON HCl 1 MG KIT IM PRN (08:14)
[2019-01-16] MEDS ORDERED: Dextrose 50% 50 mL Abboject IVP PRN (08:14)
--- NOTE | 2019-01-16 08:16 | General Progress Note ---
Subjective - Review of Systems Service Date: 01/16/19 Subjective: Patient is awake, alert, afebrile Blood sugars elevated 200's VS T 98.3 P 69 BP 156/92 R 18 Objective - Results Result Diagrams: 01/10/19 03:10 01/13/19 15:00 Recent Labs: Laboratory Last Values WBC 5.5 Th/cmm (4.8-10.8) 01/10/19 03:10 RBC 5.08 Mil/cmm (3.80-5.80) 01/10/19 03:10 Hgb 17.7 gm/dL (12-16) 01/10/19 03:10 Hct 51.6 % (41.0-60) 01/10/19 03:10 MCV 101.6 fl (80-99) H 01/10/19 03:10 MCH 34.8 pg (27.0-31.0) H 01/10/19 03:10 MCHC Differential 34.2 pg (28.0-36.0) 01/10/19 03:10 RDW 14.1 % (11.5-20.0) 01/10/19 03:10 Plt Count 154 Th/cmm (150-400) 01/10/19 03:10 MPV 7.9 fl 01/10/19 03:10 Neutrophils % 62.7 % (40.0-80.0) 01/10/19 03:10 Lymphocytes % 26.1 % (20.0-50.0) 01/10/19 03:10 Monocytes % 10.0 % (2.0-10.0) 01/10/19 03:10 Eosinophils % 0.7 % (0.0-5.0) 01/10/19 03:10 Basophils % 0.5 % (0.0-2.0) 01/10/19 03:10 Sodium 136 mEq/L (136-145) 01/13/19 15:00 Potassium 3.7 mEq/L (3.5-5.1) 01/13/19 15:00 Chloride 103 mEq/L (98-107) 01/13/19 15:00 Carbon Dioxide 24.8 mEq/L (21.0-31.0) 01/13/19 15:00 Anion Gap 11.9 (7.0-16.0) 01/13/19 15:00 BUN 20 mg/dL (7-25) 01/13/19 15:00 Creatinine 1.0 mg/dL (0.7-1.3) 01/13/19 15:00 Est GFR ( Amer) > 60.0 ml/min (>90) 01/13/19 15:00 Est GFR (Non-Af Amer) > 60.0 ml/min 01/13/19 15:00 BUN/Creatinine Ratio 20.0 01/13/19 15:00 Glucose 237 mg/dL (70-105) H 01/13/19 15:00 Calcium 9.1 mg/dL (8.6-10.3) 01/13/19 15:00 Total Bilirubin 2.0 mg/dL (0.3-1.0) H 01/10/19 03:10 AST 108 U/L (13-39) H 01/10/19 03:10 ALT 66 U/L (7-52) H 01/10/19 03:10 Alkaline Phosphatase 121 U/L (34-104) H 01/10/19 03:10 Creatine Kinase 222 U/L (30-223) 01/10/19 03:10 Troponin I 0.04 ng/mL (0.01-0.05) 01/10/19 03:10 Total Protein 6.2 gm/dL (6.0-8.3) 01/10/19 03:10 Albumin 3.6 gm/dL (4.2-5.5) L 01/10/19 03:10 Globulin 2.6 gm/dL 01/10/19 03:10 Albumin/Globulin Ratio 1.4 (1.0-1.8) 01/10/19 03:10 TSH 0.35 uIU/ml (0.34-5.60) 01/10/19 03:10 Urine Source RANDOM 01/10/19 03:35 Urine Color YELLOW 01/10/19 03:35 Urine Clarity CLOUDY (CLEAR) 01/10/19 03:35 Urine pH 7.5 (4.6 - 8.0) 01/10/19 03:35 Ur Specific [place] 1.025 (1.005-1.030) 01/10/19 03:35 Urine Protein >=300 mg/dL (NEGATIVE) 01/10/19 03:35 Urine Glucose (UA) 100 mg/dL (NEGATIVE) H 01/10/19 03:35 Urine Ketones TRACE mg/dL (NEGATIVE) 01/10/19 03:35 Urine Blood SMALL (NEGATIVE) H 01/10/19 03:35 Urine Nitrate POSITIVE (NEGATIVE) H 01/10/19 03:35 Urine Bilirubin NEGATIVE (NEGATIVE) 01/10/19 03:35 Urine Urobilinogen 2.0 E.U./dL (0.2 - 1.0) 01/10/19 03:35 Ur Leukocyte Esterase SMALL (NEGATIVE) H 01/10/19 03:35 Urine RBC 0-2 /hpf (0-5) H 01/10/19 03:35 Urine WBC 6-10 /hpf (0-5) 01/10/19 03:35 Ur Epithelial Cells RARE /lpf (FEW) 01/10/19 03:35 Urine Bacteria FEW /hpf (NONE SEEN) 01/10/19 03:35 Ethyl Alcohol 103 mg/dL (0-10) H 01/10/19 03:10 RPR NONREACTIVE (NONREACTIVE) 01/10/19 03:10 - Physical Exam Vitals and I&O: Vital Signs Temp 98.3 F 01/16/19 05:50 Pulse 69 01/16/19 05:50 Resp 19 01/16/19 05:50 BP 156/87 01/16/19 05:50 Pulse Ox 94 01/16/19 05:50 Intake & Output 01/15/19 01/16/19 01/16/19 18:59 06:59 18:59 Intake Total 180 Balance 180 Intake: Oral 180 Other: # Voids 4 2 # Bowel Movements 0 0 Stool Characteristics Formed Formed Active Medications: Current Medications Acetaminophen (Tylenol) 650 mg PO Q4HR PRN PRN Reason: Mild Pain / Temp above 100 Stop: 03/11/19 05:01 Al Hydrox/Mg Hydrox/Simethicone (Maalox) 30 ml PO Q4HR PRN PRN Reason: GI DISTRESS Stop: 03/11/19 05:01 Last Admin: 01/14/19 18:12 Dose: 30 ml Ciprofloxacin (Cipro) 500 mg PO BID [facility] Stop: 03/13/19 08:59 Last Admin: 01/15/19 17:13 Dose: 500 mg Escitalopram Oxalate (Lexapro) 7.5 mg PO DAILY MILA; Protocol Stop: 03/17/19 08:59 Lactobacillus Rhamnosus (Culturelle 15b) 1 each PO DAILY MILA Stop: 03/14/19 15:59 Last Admin: 01/15/19 08:40 Dose: 1 each Lorazepam (Ativan) 0.5 mg PO Q4HR PRN; Protocol PRN Reason: Anxiety Stop: 02/09/19 05:01 Last Admin: 01/14/19 18:11 Dose: 0.5 mg Magnesium Hydroxide (Milk Of Magnesia) 30 ml PO HS PRN PRN Reason: Constipation Stop: 03/13/19 21:16 Last Admin: 01/12/19 21:28 Dose: 30 ml Metformin HCl (Glucophage) 500 mg PO BIDWM MILA Stop: 03/15/19 17:59 Last Admin: 01/15/19 17:12 Dose: 500 mg Miscellaneous (Probiotic Screen) 1 ea MC PRN PRN PRN Reason: PROTOCOL Stop: 03/14/19 15:35 Multivitamins/Vitamin C (Theragran) 1 tab PO DAILY MILA Stop: 03/11/19 08:59 Last Admin: 01/15/19 08:40 Dose: 1 tab Wound Care/Dressing Products (Therahoney) 1 appl TP DAILY MILA Stop: 03/13/19 17:14 Last Admin: 01/15/19 08:39 Dose: 1 appl Zolpidem Tartrate (Ambien) 5 mg PO HS PRN PRN Reason: Insomnia Stop: 03/11/19 05:01 Last Admin: 01/15/19 23:36 Dose: 5 mg General: Alert, No acute distress HEENT: Atraumatic, PERRLA, EOMI Neck: Supple Cardiovascular: Regular rate, Normal S1, Normal S2 Lungs: Clear to auscultation Abdomen: Bowel sounds Extremities: no Clubbing, no Cyanosis Assessment/Plan - Assessment Assessment: psychosis UTI on Cipro PO hypokalemia -- resolved alcohol intoxication HTN elevated .. clonidine added CVA insomnia constipation hyperglycemia ... add Metformin 500mg PO BID - Plan Plan: admit to [facility] start cipro 500mg PO bid K 40meq PO daily will add clonidine PRN will start Metformin 500mg PO BID Nutritional Asmnt/Malnutr-PDOC - Dietary Evaluation Malnutrition Findings (Please click <Entered> for more info): Nutritional Asmnt/Malnutrition Start: 01/15/19 13: 54 Text: Status: Complete Freq: Protocol: Document 01/15/19 13:54 FANY (Rec: 01/15/19 14:04 FANY [email or web address]) Nutritional Asmnt/Malnutrition Patient General Information Nutritional Screening Moderate Risk Diagnosis psychosis Pertinent Medical Hx/Surgical Hx HTN, CVA/TIA, stomach surgery d/t ulcers, s/p tracheostomy Subjective Information Pt seen eating in his room, denied any question or concern about current diet/meals. Per EMR, PO intake 100%. Not appropriate to provide diabetic education d/t pt mental status. Current Diet Order/ Nutrition Support soft, NCS, cardiac, ELIF Pertinent Medications culturelle, glucophage, theragran Pertinent Labs 01/13 glucose 237 5/ K 3.0, Glucose 224, Ca 8.5 , alb 3.6 Nutritional Hx/Data Height 1.73 m Height (Calculated Centimeters) 172.7 Current Weight (lbs) 63.503 kg Weight (Calculated Kilograms) 63.5 Weight (Calculated Grams) 35362.9 [place] Body Weight 154 Body Mass Index (BMI) 21.2 Weight Status Approriate GI Symptoms GI Symptoms None Last BM 01/13 Difficult in: None Skin Integrity/Comment: redness. conrado 15 Current %PO Good (75-100%) Estimated Nutritional Goals BEE in Kcals: Using Current wt Calories/Kcals/Kg 25-30 Kcals Calculated 8975-4344 Protein: Using Current wt Protein g/k Protein Calculated 64 Fluid: ml 1600-1920ml (1ml/kcal) Nutritional Problem 1. Problem Problem altered nutrition related labs Etiology hyperglycemia Signs/Symptoms: glucose 224-237 Malnutrition Alert Is there a minimum of two criteria No selected? Query Text:Check all the applicable criteria. A minimum of two criteria are recommended for diagnosis of either severe or non-severe malnutrition. Malnutrition Related to Morbid Obesity Malnutrition related to morbid obesity No Intervention/Recommendation Comments 1. Continue with soft NCS, cardiac diet as ordered. MD to adjust insulin regimen for optimal glycemic control. 2. Monitor PO intake, wt, labs and skin integrity 3. F/U as low risk in 7 days Expected Outcomes/Goals Expected Outcomes/Goals 1. PO intake to meet at least 75% of nutritional needs. 2. Wt stability, skin to remain intact, labs to approach WNL.
[2019-01-16] MEDS: Therahoney Gel 42.5gm Tube TP SCH (08:24)
[2019-01-16] MEDS: Lactobacillus Rhamnosus GG 15 Billion CFU CAP.SPRINK PO SCH (08:24)
[2019-01-16] MEDS: Escitalopram Oxalate 5 mg Tab PO SCH (08:25)
[2019-01-16] MEDS: Multivitamin Tab PO SCH (08:25)
[2019-01-16] MEDS: INSULIN LISPRO SLIDING SCALE 100 UNITS/ML UNIT SUBQ SCH ×3 (12:01→20:39)
--- NOTE | 2019-01-16 13:09 | Progress Notes ---
DATE: 01/16/2019 SUBJECTIVE: The patient generally more cooperative, but isolative, withdrawn. The patient does use a diaper, needs a lot of redirection, prompting help with staff, sometimes socializes, mostly keeps to himself. No behavioral outbursts, ongoing concerns about hypersexual behaviors, poor impulse control, but generally seems to be showing signs and symptoms of improvement. No outlandish behaviors, no unruly behaviors. Over the weekend, Dr. Velazquez noting he was so aggressive, irritable, ongoing intense about impulse control. PLAN: We will continue to monitor. Currently on Lexapro 5 mg daily. I will be increasing his dosage to 7.5 mg to tamper ongoing impulsivities and mood symptoms. [facility]# [id number]
[2019-01-17] MEDS: INSULIN LISPRO SLIDING SCALE 100 UNITS/ML UNIT SUBQ SCH ×4 (06:37→20:43)
[2019-01-17] MEDS: Escitalopram Oxalate 5 mg Tab PO SCH (08:26)
[2019-01-17] MEDS: Lactobacillus Rhamnosus GG 15 Billion CFU CAP.SPRINK PO SCH (08:27)
[2019-01-17] MEDS: Multivitamin Tab PO SCH (08:27)
--- NOTE | 2019-01-17 08:35 | General Progress Note ---
Subjective - Review of Systems Service Date: 01/17/19 Subjective: Patient is awake, alert, afebrile Blood sugars elevated 200's VS T 98.0 P 72 BP 149/91 R 20 Objective - Results Result Diagrams: 01/10/19 03:10 01/13/19 15:00 Recent Labs: Laboratory Last Values WBC 5.5 Th/cmm (4.8-10.8) 01/10/19 03:10 RBC 5.08 Mil/cmm (3.80-5.80) 01/10/19 03:10 Hgb 17.7 gm/dL (12-16) 01/10/19 03:10 Hct 51.6 % (41.0-60) 01/10/19 03:10 MCV 101.6 fl (80-99) H 01/10/19 03:10 MCH 34.8 pg (27.0-31.0) H 01/10/19 03:10 MCHC Differential 34.2 pg (28.0-36.0) 01/10/19 03:10 RDW 14.1 % (11.5-20.0) 01/10/19 03:10 Plt Count 154 Th/cmm (150-400) 01/10/19 03:10 MPV 7.9 fl 01/10/19 03:10 Neutrophils % 62.7 % (40.0-80.0) 01/10/19 03:10 Lymphocytes % 26.1 % (20.0-50.0) 01/10/19 03:10 Monocytes % 10.0 % (2.0-10.0) 01/10/19 03:10 Eosinophils % 0.7 % (0.0-5.0) 01/10/19 03:10 Basophils % 0.5 % (0.0-2.0) 01/10/19 03:10 Sodium 136 mEq/L (136-145) 01/13/19 15:00 Potassium 3.7 mEq/L (3.5-5.1) 01/13/19 15:00 Chloride 103 mEq/L (98-107) 01/13/19 15:00 Carbon Dioxide 24.8 mEq/L (21.0-31.0) 01/13/19 15:00 Anion Gap 11.9 (7.0-16.0) 01/13/19 15:00 BUN 20 mg/dL (7-25) 01/13/19 15:00 Creatinine 1.0 mg/dL (0.7-1.3) 01/13/19 15:00 Est GFR ( Amer) > 60.0 ml/min (>90) 01/13/19 15:00 Est GFR (Non-Af Amer) > 60.0 ml/min 01/13/19 15:00 BUN/Creatinine Ratio 20.0 01/13/19 15:00 Glucose 237 mg/dL (70-105) H 01/13/19 15:00 POC Glucose 141 MG/DL (70 - 105) H 01/17/19 05:54 Calcium 9.1 mg/dL (8.6-10.3) 01/13/19 15:00 Total Bilirubin 2.0 mg/dL (0.3-1.0) H 01/10/19 03:10 AST 108 U/L (13-39) H 01/10/19 03:10 ALT 66 U/L (7-52) H 01/10/19 03:10 Alkaline Phosphatase 121 U/L (34-104) H 01/10/19 03:10 Creatine Kinase 222 U/L (30-223) 01/10/19 03:10 Troponin I 0.04 ng/mL (0.01-0.05) 01/10/19 03:10 Total Protein 6.2 gm/dL (6.0-8.3) 01/10/19 03:10 Albumin 3.6 gm/dL (4.2-5.5) L 01/10/19 03:10 Globulin 2.6 gm/dL 01/10/19 03:10 Albumin/Globulin Ratio 1.4 (1.0-1.8) 01/10/19 03:10 TSH 0.35 uIU/ml (0.34-5.60) 01/10/19 03:10 Urine Source RANDOM 01/10/19 03:35 Urine Color YELLOW 01/10/19 03:35 Urine Clarity CLOUDY (CLEAR) 01/10/19 03:35 Urine pH 7.5 (4.6 - 8.0) 01/10/19 03:35 Ur Specific [place] 1.025 (1.005-1.030) 01/10/19 03:35 Urine Protein >=300 mg/dL (NEGATIVE) 01/10/19 03:35 Urine Glucose (UA) 100 mg/dL (NEGATIVE) H 01/10/19 03:35 Urine Ketones TRACE mg/dL (NEGATIVE) 01/10/19 03:35 Urine Blood SMALL (NEGATIVE) H 01/10/19 03:35 Urine Nitrate POSITIVE (NEGATIVE) H 01/10/19 03:35 Urine Bilirubin NEGATIVE (NEGATIVE) 01/10/19 03:35 Urine Urobilinogen 2.0 E.U./dL (0.2 - 1.0) 01/10/19 03:35 Ur Leukocyte Esterase SMALL (NEGATIVE) H 01/10/19 03:35 Urine RBC 0-2 /hpf (0-5) H 01/10/19 03:35 Urine WBC 6-10 /hpf (0-5) 01/10/19 03:35 Ur Epithelial Cells RARE /lpf (FEW) 01/10/19 03:35 Urine Bacteria FEW /hpf (NONE SEEN) 01/10/19 03:35 Ethyl Alcohol 103 mg/dL (0-10) H 01/10/19 03:10 RPR NONREACTIVE (NONREACTIVE) 01/10/19 03:10 - Physical Exam Vitals and I&O: Vital Signs Temp 98 F 01/17/19 05:41 Pulse 72 01/17/19 05:41 Resp 20 01/17/19 05:41 BP 149/91 01/17/19 05:41 Pulse Ox 97 01/17/19 05:41 Intake & Output 01/16/19 01/17/19 01/17/19 18:59 06:59 18:59 Intake Total 500 Balance 500 Weight (lbs) 63.503 kg Intake: Oral 500 Other: # Voids 4 3 # Bowel Movements 1 0 Stool Characteristics Formed Weight Source Bedscale Active Medications: Current Medications Acetaminophen (Tylenol) 650 mg PO Q4HR PRN PRN Reason: Mild Pain / Temp above 100 Stop: 03/11/19 05:01 Al Hydrox/Mg Hydrox/Simethicone (Maalox) 30 ml PO Q4HR PRN PRN Reason: GI DISTRESS Stop: 03/11/19 05:01 Last Admin: 01/14/19 18:12 Dose: 30 ml Ciprofloxacin (Cipro) 500 mg PO BID MILA Stop: 03/13/19 08:59 Last Admin: 01/17/19 08:24 Dose: 500 mg Dextrose (D50w) 50 ml IVP PRN PRN PRN Reason: BS below 70 & not tolerate po Stop: 03/17/19 08:13 Dextrose (Glutose 40%) 18.75 gm PO PRN PRN PRN Reason: BS below 70 & tolerate po Stop: 03/17/19 08:13 Escitalopram Oxalate (Lexapro) 7.5 mg PO DAILY MILA; Protocol Stop: 03/17/19 08:59 Last Admin: 01/17/19 08:26 Dose: 7.5 mg Glucagon (Glucagen) 1 mg IM PRN PRN PRN Reason: BS below 70&dextrose ineffecti Stop: 03/17/19 08:13 Insulin Human Lispro (Humalog Insulin Sliding Scale) 0 units SUBQ ACHS MILA; Protocol Stop: 03/17/19 11:29 Last Admin: 01/17/19 06:37 Dose: Not Given Lactobacillus Rhamnosus (Culturelle 15b) 1 each PO DAILY MILA Stop: 03/14/19 15:59 Last Admin: 01/17/19 08:27 Dose: 1 each Lorazepam (Ativan) 0.5 mg PO Q4HR PRN; Protocol PRN Reason: Anxiety Stop: 02/09/19 05:01 Last Admin: 01/14/19 18:11 Dose: 0.5 mg Magnesium Hydroxide (Milk Of Magnesia) 30 ml PO HS PRN PRN Reason: Constipation Stop: 03/13/19 21:16 Last Admin: 01/12/19 21:28 Dose: 30 ml Metformin HCl (Glucophage) 500 mg PO BIDWM MILA Stop: 03/15/19 17:59 Last Admin: 01/17/19 08:24 Dose: 500 mg Miscellaneous (Probiotic Screen) 1 ea MC PRN PRN PRN Reason: PROTOCOL Stop: 03/14/19 15:35 Multivitamins/Vitamin C (Theragran) 1 tab PO DAILY MILA Stop: 03/11/19 08:59 Last Admin: 01/17/19 08:27 Dose: 1 tab Wound Care/Dressing Products (Therahoney) 1 appl TP DAILY MILA Stop: 03/13/19 17:14 Last Admin: 01/16/19 08:24 Dose: 1 appl Zolpidem Tartrate (Ambien) 5 mg PO HS PRN PRN Reason: Insomnia Stop: 03/11/19 05:01 Last Admin: 01/15/19 23:36 Dose: 5 mg General: Alert, No acute distress HEENT: Atraumatic, PERRLA, EOMI Neck: Supple Cardiovascular: Regular rate, Normal S1, Normal S2 Lungs: Clear to auscultation Abdomen: Bowel sounds Extremities: no Clubbing, no Cyanosis Assessment/Plan - Assessment Assessment: psychosis UTI on Cipro PO hypokalemia -- resolved alcohol intoxication HTN elevated .. clonidine added CVA insomnia constipation hyperglycemia ... add Metformin 500mg PO BID - Plan Plan: admit to [facility] start cipro 500mg PO bid K 40meq PO daily will add clonidine PRN will start Metformin 500mg PO BID Nutritional Asmnt/Malnutr-PDOC - Dietary Evaluation Malnutrition Findings (Please click <Entered> for more info): Nutritional Asmnt/Malnutrition Start: 01/15/19 13: 54 Text: Status: Complete Freq: Protocol: Document 01/15/19 13:54 [email or web address] (Rec: 01/15/19 14:04 [email or web address] [email or web address]) Nutritional Asmnt/Malnutrition Patient General Information Nutritional Screening Moderate Risk Diagnosis psychosis Pertinent Medical Hx/Surgical Hx HTN, CVA/TIA, stomach surgery d/t ulcers, s/p tracheostomy Subjective Information Pt seen eating in his room, denied any question or concern about current diet/meals. Per EMR, PO intake 100%. Not appropriate to provide diabetic education d/t pt mental status. Current Diet Order/ Nutrition Support soft, NCS, cardiac, ELIF Pertinent Medications culturelle, glucophage, theragran Pertinent Labs 01/13 glucose 237 5/8 K 3.0, Glucose 224, Ca 8.5 , alb 3.6 Nutritional Hx/Data Height 1.73 m Height (Calculated Centimeters) 172.7 Current Weight (lbs) 63.503 kg Weight (Calculated Kilograms) 63.5 Weight (Calculated Grams) 12498.9 [place] Body Weight 154 Body Mass Index (BMI) 21.2 Weight Status Approriate GI Symptoms GI Symptoms None Last BM 01/13 Difficult in: None Skin Integrity/Comment: redness. conrado 15 Current %PO Good (75-100%) Estimated Nutritional Goals BEE in Kcals: Using Current wt Calories/Kcals/Kg 25-30 Kcals Calculated 9065-0602 Protein: Using Current wt Protein g/k Protein Calculated 64 Fluid: ml 1600-1920ml (1ml/kcal) Nutritional Problem 1. Problem Problem altered nutrition related labs Etiology hyperglycemia Signs/Symptoms: glucose 224-237 Malnutrition Alert Is there a minimum of two criteria No selected? Query Text:Check all the applicable criteria. A minimum of two criteria are recommended for diagnosis of either severe or non-severe malnutrition. Malnutrition Related to Morbid Obesity Malnutrition related to morbid obesity No Intervention/Recommendation Comments 1. Continue with soft NCS, cardiac diet as ordered. MD to adjust insulin regimen for optimal glycemic control. 2. Monitor PO intake, wt, labs and skin integrity 3. F/U as low risk in 7 days Expected Outcomes/Goals Expected Outcomes/Goals 1. PO intake to meet at least 75% of nutritional needs. 2. Wt stability, skin to remain intact, labs to approach WNL.
[2019-01-17] MEDS: Therahoney Gel 42.5gm Tube TP SCH (10:26)
--- NOTE | 2019-01-17 19:23 | Progress Notes ---
DATE: 01/17/2019 SUBJECTIVE: The patient remains impulsive, ongoing concerns about impulsivity. He is generally calmer, more cooperative. The patient was [place]. [place] to go [place] to [place]. We are continuing to look for placement. Fair sleep, fair appetite. The patient is loud at times, unpredictable, but generally calmer, still some confusion noted, withdrawn, unable to really care for his basic needs. We are trying to help him with placement. We will continue to monitor. MEDICATIONS: Noted. [facility]# [id number]
[2019-01-18] MEDS: INSULIN LISPRO SLIDING SCALE 100 UNITS/ML UNIT SUBQ SCH ×4 (06:29→20:43)
--- NOTE | 2019-01-18 08:21 | General Progress Note ---
Subjective - Review of Systems Service Date: 01/18/19 Subjective: Patient is awake, alert, afebrile Blood sugars elevated 200's VS T 98.0 P 93 BP 132/86 R 18 Objective - Results Result Diagrams: 01/10/19 03:10 01/13/19 15:00 Recent Labs: Laboratory Last Values WBC 5.5 Th/cmm (4.8-10.8) 01/10/19 03:10 RBC 5.08 Mil/cmm (3.80-5.80) 01/10/19 03:10 Hgb 17.7 gm/dL (12-16) 01/10/19 03:10 Hct 51.6 % (41.0-60) 01/10/19 03:10 MCV 101.6 fl (80-99) H 01/10/19 03:10 MCH 34.8 pg (27.0-31.0) H 01/10/19 03:10 MCHC Differential 34.2 pg (28.0-36.0) 01/10/19 03:10 RDW 14.1 % (11.5-20.0) 01/10/19 03:10 Plt Count 154 Th/cmm (150-400) 01/10/19 03:10 MPV 7.9 fl 01/10/19 03:10 Neutrophils % 62.7 % (40.0-80.0) 01/10/19 03:10 Lymphocytes % 26.1 % (20.0-50.0) 01/10/19 03:10 Monocytes % 10.0 % (2.0-10.0) 01/10/19 03:10 Eosinophils % 0.7 % (0.0-5.0) 01/10/19 03:10 Basophils % 0.5 % (0.0-2.0) 01/10/19 03:10 Sodium 136 mEq/L (136-145) 01/13/19 15:00 Potassium 3.7 mEq/L (3.5-5.1) 01/13/19 15:00 Chloride 103 mEq/L (98-107) 01/13/19 15:00 Carbon Dioxide 24.8 mEq/L (21.0-31.0) 01/13/19 15:00 Anion Gap 11.9 (7.0-16.0) 01/13/19 15:00 BUN 20 mg/dL (7-25) 01/13/19 15:00 Creatinine 1.0 mg/dL (0.7-1.3) 01/13/19 15:00 Est GFR ( Amer) > 60.0 ml/min (>90) 01/13/19 15:00 Est GFR (Non-Af Amer) > 60.0 ml/min 01/13/19 15:00 BUN/Creatinine Ratio 20.0 01/13/19 15:00 Glucose 237 mg/dL (70-105) H 01/13/19 15:00 POC Glucose 129 MG/DL (70 - 105) H 01/18/19 06:27 Calcium 9.1 mg/dL (8.6-10.3) 01/13/19 15:00 Total Bilirubin 2.0 mg/dL (0.3-1.0) H 01/10/19 03:10 AST 108 U/L (13-39) H 01/10/19 03:10 ALT 66 U/L (7-52) H 01/10/19 03:10 Alkaline Phosphatase 121 U/L (34-104) H 01/10/19 03:10 Creatine Kinase 222 U/L (30-223) 01/10/19 03:10 Troponin I 0.04 ng/mL (0.01-0.05) 01/10/19 03:10 Total Protein 6.2 gm/dL (6.0-8.3) 01/10/19 03:10 Albumin 3.6 gm/dL (4.2-5.5) L 01/10/19 03:10 Globulin 2.6 gm/dL 01/10/19 03:10 Albumin/Globulin Ratio 1.4 (1.0-1.8) 01/10/19 03:10 TSH 0.35 uIU/ml (0.34-5.60) 01/10/19 03:10 Urine Source RANDOM 01/10/19 03:35 Urine Color YELLOW 01/10/19 03:35 Urine Clarity CLOUDY (CLEAR) 01/10/19 03:35 Urine pH 7.5 (4.6 - 8.0) 01/10/19 03:35 Ur Specific [place] 1.025 (1.005-1.030) 01/10/19 03:35 Urine Protein >=300 mg/dL (NEGATIVE) 01/10/19 03:35 Urine Glucose (UA) 100 mg/dL (NEGATIVE) H 01/10/19 03:35 Urine Ketones TRACE mg/dL (NEGATIVE) 01/10/19 03:35 Urine Blood SMALL (NEGATIVE) H 01/10/19 03:35 Urine Nitrate POSITIVE (NEGATIVE) H 01/10/19 03:35 Urine Bilirubin NEGATIVE (NEGATIVE) 01/10/19 03:35 Urine Urobilinogen 2.0 E.U./dL (0.2 - 1.0) 01/10/19 03:35 Ur Leukocyte Esterase SMALL (NEGATIVE) H 01/10/19 03:35 Urine RBC 0-2 /hpf (0-5) H 01/10/19 03:35 Urine WBC 6-10 /hpf (0-5) 01/10/19 03:35 Ur Epithelial Cells RARE /lpf (FEW) 01/10/19 03:35 Urine Bacteria FEW /hpf (NONE SEEN) 01/10/19 03:35 Ethyl Alcohol 103 mg/dL (0-10) H 01/10/19 03:10 RPR NONREACTIVE (NONREACTIVE) 01/10/19 03:10 - Physical Exam Vitals and I&O: Vital Signs Temp 98.0 F 01/17/19 20:06 Pulse 93 01/17/19 20:06 Resp 18 01/17/19 20:06 BP 132/86 01/17/19 20:06 Pulse Ox 92 01/17/19 20:06 Intake & Output 01/17/19 01/18/19 01/18/19 18:59 06:59 18:59 Intake Total 1200 120 Balance 1200 120 Intake: Oral 1200 120 Other: # Voids 2 # Bowel Movements 1 0 Stool Characteristics Formed Active Medications: Current Medications Acetaminophen (Tylenol) 650 mg PO Q4HR PRN PRN Reason: Mild Pain / Temp above 100 Stop: 03/11/19 05:01 Al Hydrox/Mg Hydrox/Simethicone (Maalox) 30 ml PO Q4HR PRN PRN Reason: GI DISTRESS Stop: 03/11/19 05:01 Last Admin: 01/14/19 18:12 Dose: 30 ml Ciprofloxacin (Cipro) 500 mg PO BID MILA Stop: 03/13/19 08:59 Last Admin: 01/17/19 16:07 Dose: 500 mg Dextrose (D50w) 50 ml IVP PRN PRN PRN Reason: BS below 70 & not tolerate po Stop: 03/17/19 08:13 Dextrose (Glutose 40%) 18.75 gm PO PRN PRN PRN Reason: BS below 70 & tolerate po Stop: 03/17/19 08:13 Escitalopram Oxalate (Lexapro) 7.5 mg PO DAILY MILA; Protocol Stop: 03/17/19 08:59 Last Admin: 01/17/19 08:26 Dose: 7.5 mg Glucagon (Glucagen) 1 mg IM PRN PRN PRN Reason: BS below 70&dextrose ineffecti Stop: 03/17/19 08:13 Insulin Human Lispro (Humalog Insulin Sliding Scale) 0 units SUBQ ACHS MILA; Protocol Stop: 03/17/19 11:29 Last Admin: 01/18/19 06:29 Dose: Not Given Lactobacillus Rhamnosus (Culturelle 15b) 1 each PO DAILY MILA Stop: 03/14/19 15:59 Last Admin: 01/17/19 08:27 Dose: 1 each Lorazepam (Ativan) 0.5 mg PO Q4HR PRN; Protocol PRN Reason: Anxiety Stop: 02/09/19 05:01 Last Admin: 01/14/19 18:11 Dose: 0.5 mg Magnesium Hydroxide (Milk Of Magnesia) 30 ml PO HS PRN PRN Reason: Constipation Stop: 03/13/19 21:16 Last Admin: 01/12/19 21:28 Dose: 30 ml Metformin HCl (Glucophage) 500 mg PO BIDWM MILA Stop: 03/15/19 17:59 Last Admin: 01/17/19 17:16 Dose: 500 mg Miscellaneous (Probiotic Screen) 1 ea MC PRN PRN PRN Reason: PROTOCOL Stop: 03/14/19 15:35 Multivitamins/Vitamin C (Theragran) 1 tab PO DAILY MILA Stop: 03/11/19 08:59 Last Admin: 01/17/19 08:27 Dose: 1 tab Wound Care/Dressing Products (Therahoney) 1 appl TP DAILY MILA Stop: 03/13/19 17:14 Last Admin: 01/17/19 10:26 Dose: 1 appl Zolpidem Tartrate (Ambien) 5 mg PO HS PRN PRN Reason: Insomnia Stop: 03/11/19 05:01 Last Admin: 01/15/19 23:36 Dose: 5 mg General: Alert, No acute distress HEENT: Atraumatic, PERRLA, EOMI Neck: Supple Cardiovascular: Regular rate, Normal S1, Normal S2 Lungs: Clear to auscultation Abdomen: Bowel sounds Extremities: no Clubbing, no Cyanosis Assessment/Plan - Assessment Assessment: psychosis UTI on Cipro PO hypokalemia -- resolved alcohol intoxication HTN elevated .. clonidine added CVA insomnia constipation hyperglycemia ... improving with Metformin - Plan Plan: admit to [facility] start cipro 500mg PO bid K 40meq PO daily will add clonidine PRN will start Metformin 500mg PO BID Nutritional Asmnt/Malnutr-PDOC - Dietary Evaluation Malnutrition Findings (Please click <Entered> for more info): Nutritional Asmnt/Malnutrition Start: 01/15/19 13: 54 Text: Status: Complete Freq: Protocol: Document 01/15/19 13:54 LCALIX (Rec: 01/15/19 14:04 ALIX [email or web address]) Nutritional Asmnt/Malnutrition Patient General Information Nutritional Screening Moderate Risk Diagnosis psychosis Pertinent Medical Hx/Surgical Hx HTN, CVA/TIA, stomach surgery d/t ulcers, s/p tracheostomy Subjective Information Pt seen eating in his room, denied any question or concern about current diet/meals. Per EMR, PO intake 100%. Not appropriate to provide diabetic education d/t pt mental status. Current Diet Order/ Nutrition Support soft, NCS, cardiac, ELIF Pertinent Medications culturelle, glucophage, theragran Pertinent Labs 01/13 glucose 237 5/8 K 3.0, Glucose 224, Ca 8.5 , alb 3.6 Nutritional Hx/Data Height 1.73 m Height (Calculated Centimeters) 172.7 Current Weight (lbs) 63.503 kg Weight (Calculated Kilograms) 63.5 Weight (Calculated Grams) 44203.9 [place] Body Weight 154 Body Mass Index (BMI) 21.2 Weight Status Approriate GI Symptoms GI Symptoms None Last BM 01/13 Difficult in: None Skin Integrity/Comment: redness. conrado 15 Current %PO Good (75-100%) Estimated Nutritional Goals BEE in Kcals: Using Current wt Calories/Kcals/Kg 25-30 Kcals Calculated 9458-0013 Protein: Using Current wt Protein g/k Protein Calculated 64 Fluid: ml 1600-1920ml (1ml/kcal) Nutritional Problem 1. Problem Problem altered nutrition related labs Etiology hyperglycemia Signs/Symptoms: glucose 224-237 Malnutrition Alert Is there a minimum of two criteria No selected? Query Text:Check all the applicable criteria. A minimum of two criteria are recommended for diagnosis of either severe or non-severe malnutrition. Malnutrition Related to Morbid Obesity Malnutrition related to morbid obesity No Intervention/Recommendation Comments 1. Continue with soft NCS, cardiac diet as ordered. MD to adjust insulin regimen for optimal glycemic control. 2. Monitor PO intake, wt, labs and skin integrity 3. F/U as low risk in 7 days Expected Outcomes/Goals Expected Outcomes/Goals 1. PO intake to meet at least 75% of nutritional needs. 2. Wt stability, skin to remain intact, labs to approach WNL.
[2019-01-18] MEDS: Escitalopram Oxalate 5 mg Tab PO SCH (08:33)
[2019-01-18] MEDS: Lactobacillus Rhamnosus GG 15 Billion CFU CAP.SPRINK PO SCH (08:36)
[2019-01-18] MEDS: Therahoney Gel 42.5gm Tube TP SCH (08:37)
[2019-01-18] MEDS: Multivitamin Tab PO SCH (08:37)
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
--- NOTE | 2019-01-19 05:37 | General Progress Note ---
Subjective - Review of Systems Service Date: 01/19/19 Subjective: Patient is awake, alert, afebrile Blood sugars elevated 200's VS T 97.6 P 74 BP 149/81 R 19 Objective - Results Result Diagrams: 01/10/19 03:10 01/13/19 15:00 Recent Labs: Laboratory Last Values WBC 5.5 Th/cmm (4.8-10.8) 01/10/19 03:10 RBC 5.08 Mil/cmm (3.80-5.80) 01/10/19 03:10 Hgb 17.7 gm/dL (12-16) 01/10/19 03:10 Hct 51.6 % (41.0-60) 01/10/19 03:10 MCV 101.6 fl (80-99) H 01/10/19 03:10 MCH 34.8 pg (27.0-31.0) H 01/10/19 03:10 MCHC Differential 34.2 pg (28.0-36.0) 01/10/19 03:10 RDW 14.1 % (11.5-20.0) 01/10/19 03:10 Plt Count 154 Th/cmm (150-400) 01/10/19 03:10 MPV 7.9 fl 01/10/19 03:10 Neutrophils % 62.7 % (40.0-80.0) 01/10/19 03:10 Lymphocytes % 26.1 % (20.0-50.0) 01/10/19 03:10 Monocytes % 10.0 % (2.0-10.0) 01/10/19 03:10 Eosinophils % 0.7 % (0.0-5.0) 01/10/19 03:10 Basophils % 0.5 % (0.0-2.0) 01/10/19 03:10 Sodium 136 mEq/L (136-145) 01/13/19 15:00 Potassium 3.7 mEq/L (3.5-5.1) 01/13/19 15:00 Chloride 103 mEq/L (98-107) 01/13/19 15:00 Carbon Dioxide 24.8 mEq/L (21.0-31.0) 01/13/19 15:00 Anion Gap 11.9 (7.0-16.0) 01/13/19 15:00 BUN 20 mg/dL (7-25) 01/13/19 15:00 Creatinine 1.0 mg/dL (0.7-1.3) 01/13/19 15:00 Est GFR ( Amer) > 60.0 ml/min (>90) 01/13/19 15:00 Est GFR (Non-Af Amer) > 60.0 ml/min 01/13/19 15:00 BUN/Creatinine Ratio 20.0 01/13/19 15:00 Glucose 237 mg/dL (70-105) H 01/13/19 15:00 POC Glucose 129 MG/DL (70 - 105) H 01/18/19 06:27 Calcium 9.1 mg/dL (8.6-10.3) 01/13/19 15:00 Total Bilirubin 2.0 mg/dL (0.3-1.0) H 01/10/19 03:10 AST 108 U/L (13-39) H 01/10/19 03:10 ALT 66 U/L (7-52) H 01/10/19 03:10 Alkaline Phosphatase 121 U/L (34-104) H 01/10/19 03:10 Creatine Kinase 222 U/L (30-223) 01/10/19 03:10 Troponin I 0.04 ng/mL (0.01-0.05) 01/10/19 03:10 Total Protein 6.2 gm/dL (6.0-8.3) 01/10/19 03:10 Albumin 3.6 gm/dL (4.2-5.5) L 01/10/19 03:10 Globulin 2.6 gm/dL 01/10/19 03:10 Albumin/Globulin Ratio 1.4 (1.0-1.8) 01/10/19 03:10 TSH 0.35 uIU/ml (0.34-5.60) 01/10/19 03:10 Urine Source RANDOM 01/10/19 03:35 Urine Color YELLOW 01/10/19 03:35 Urine Clarity CLOUDY (CLEAR) 01/10/19 03:35 Urine pH 7.5 (4.6 - 8.0) 01/10/19 03:35 Ur Specific [place] 1.025 (1.005-1.030) 01/10/19 03:35 Urine Protein >=300 mg/dL (NEGATIVE) 01/10/19 03:35 Urine Glucose (UA) 100 mg/dL (NEGATIVE) H 01/10/19 03:35 Urine Ketones TRACE mg/dL (NEGATIVE) 01/10/19 03:35 Urine Blood SMALL (NEGATIVE) H 01/10/19 03:35 Urine Nitrate POSITIVE (NEGATIVE) H 01/10/19 03:35 Urine Bilirubin NEGATIVE (NEGATIVE) 01/10/19 03:35 Urine Urobilinogen 2.0 E.U./dL (0.2 - 1.0) 01/10/19 03:35 Ur Leukocyte Esterase SMALL (NEGATIVE) H 01/10/19 03:35 Urine RBC 0-2 /hpf (0-5) H 01/10/19 03:35 Urine WBC 6-10 /hpf (0-5) 01/10/19 03:35 Ur Epithelial Cells RARE /lpf (FEW) 01/10/19 03:35 Urine Bacteria FEW /hpf (NONE SEEN) 01/10/19 03:35 Ethyl Alcohol 103 mg/dL (0-10) H 01/10/19 03:10 RPR NONREACTIVE (NONREACTIVE) 01/10/19 03:10 - Physical Exam Vitals and I&O: Vital Signs Temp 97.6 F 01/18/19 20:19 Pulse 74 01/18/19 20:19 Resp 19 01/18/19 20:19 BP 149/81 01/18/19 20:19 Pulse Ox 96 01/18/19 20:19 Intake & Output 01/18/19 01/18/19 01/19/19 06:59 18:59 06:59 Intake Total 120 1200 Balance 120 1200 Intake: Oral 120 1200 Other: # Voids 2 # Bowel Movements 0 1 Stool Characteristics Formed Formed Active Medications: Current Medications Acetaminophen (Tylenol) 650 mg PO Q4HR PRN PRN Reason: Mild Pain / Temp above 100 Stop: 03/11/19 05:01 Al Hydrox/Mg Hydrox/Simethicone (Maalox) 30 ml PO Q4HR PRN PRN Reason: GI DISTRESS Stop: 03/11/19 05:01 Last Admin: 01/14/19 18:12 Dose: 30 ml Ciprofloxacin (Cipro) 500 mg PO BID MILA Stop: 03/13/19 08:59 Last Admin: 01/18/19 16:16 Dose: 500 mg Dextrose (D50w) 50 ml IVP PRN PRN PRN Reason: BS below 70 & not tolerate po Stop: 03/17/19 08:13 Dextrose (Glutose 40%) 18.75 gm PO PRN PRN PRN Reason: BS below 70 & tolerate po Stop: 03/17/19 08:13 Escitalopram Oxalate (Lexapro) 7.5 mg PO DAILY MILA; Protocol Stop: 03/17/19 08:59 Last Admin: 01/18/19 08:33 Dose: 7.5 mg Glucagon (Glucagen) 1 mg IM PRN PRN PRN Reason: BS below 70&dextrose ineffecti Stop: 03/17/19 08:13 Insulin Human Lispro (Humalog Insulin Sliding Scale) 0 units SUBQ ACHS MILA; Protocol Stop: 03/17/19 11:29 Last Admin: 01/18/19 20:43 Dose: Not Given Lactobacillus Rhamnosus (Culturelle 15b) 1 each PO DAILY MILA Stop: 03/14/19 15:59 Last Admin: 01/18/19 08:36 Dose: 1 each Lorazepam (Ativan) 0.5 mg PO Q4HR PRN; Protocol PRN Reason: Anxiety Stop: 02/09/19 05:01 Last Admin: 01/14/19 18:11 Dose: 0.5 mg Magnesium Hydroxide (Milk Of Magnesia) 30 ml PO HS PRN PRN Reason: Constipation Stop: 03/13/19 21:16 Last Admin: 01/12/19 21:28 Dose: 30 ml Metformin HCl (Glucophage) 500 mg PO BIDWM MILA Stop: 03/15/19 17:59 Last Admin: 01/18/19 17:18 Dose: 500 mg Miscellaneous (Probiotic Screen) 1 ea MC PRN PRN PRN Reason: PROTOCOL Stop: 03/14/19 15:35 Multivitamins/Vitamin C (Theragran) 1 tab PO DAILY MILA Stop: 03/11/19 08:59 Last Admin: 01/18/19 08:37 Dose: 1 tab Wound Care/Dressing Products (Therahoney) 1 appl TP DAILY MILA Stop: 03/13/19 17:14 Last Admin: 01/18/19 08:37 Dose: 1 appl Zolpidem Tartrate (Ambien) 5 mg PO HS PRN PRN Reason: Insomnia Stop: 03/11/19 05:01 Last Admin: 01/15/19 23:36 Dose: 5 mg General: Alert, No acute distress HEENT: Atraumatic, PERRLA, EOMI Neck: Supple Cardiovascular: Regular rate, Normal S1, Normal S2 Lungs: Clear to auscultation Abdomen: Bowel sounds Extremities: no Clubbing, no Cyanosis Assessment/Plan - Assessment Assessment: psychosis UTI on Cipro PO hypokalemia -- resolved alcohol intoxication HTN elevated .. clonidine added CVA insomnia constipation hyperglycemia ... improving with Metformin - Plan Plan: admit to [facility] start cipro 500mg PO bid K 40meq PO daily will add clonidine PRN will start Metformin 500mg PO BID Nutritional Asmnt/Malnutr-PDOC - Dietary Evaluation Malnutrition Findings (Please click <Entered> for more info): Nutritional Asmnt/Malnutrition Start: 01/15/19 13: 54 Text: Status: Complete Freq: Protocol: Document 01/15/19 13:54 LÓPEZ (Rec: 01/15/19 14:04 ALIX [email or web address]) Nutritional Asmnt/Malnutrition Patient General Information Nutritional Screening Moderate Risk Diagnosis psychosis Pertinent Medical Hx/Surgical Hx HTN, CVA/TIA, stomach surgery d/t ulcers, s/p tracheostomy Subjective Information Pt seen eating in his room, denied any question or concern about current diet/meals. Per EMR, PO intake 100%. Not appropriate to provide diabetic education d/t pt mental status. Current Diet Order/ Nutrition Support soft, NCS, cardiac, ELIF Pertinent Medications culturelle, glucophage, theragran Pertinent Labs 01/13 glucose 237 5/8 K 3.0, Glucose 224, Ca 8.5 , alb 3.6 Nutritional Hx/Data Height 1.73 m Height (Calculated Centimeters) 172.7 Current Weight (lbs) 63.503 kg Weight (Calculated Kilograms) 63.5 Weight (Calculated Grams) 74110.9 [place] Body Weight 154 Body Mass Index (BMI) 21.2 Weight Status Approriate GI Symptoms GI Symptoms None Last BM 01/13 Difficult in: None Skin Integrity/Comment: redness. conrado 15 Current %PO Good (75-100%) Estimated Nutritional Goals BEE in Kcals: Using Current wt Calories/Kcals/Kg 25-30 Kcals Calculated 6584-8380 Protein: Using Current wt Protein g/k Protein Calculated 64 Fluid: ml 1600-1920ml (1ml/kcal) Nutritional Problem 1. Problem Problem altered nutrition related labs Etiology hyperglycemia Signs/Symptoms: glucose 224-237 Malnutrition Alert Is there a minimum of two criteria No selected? Query Text:Check all the applicable criteria. A minimum of two criteria are recommended for diagnosis of either severe or non-severe malnutrition. Malnutrition Related to Morbid Obesity Malnutrition related to morbid obesity No Intervention/Recommendation Comments 1. Continue with soft NCS, cardiac diet as ordered. MD to adjust insulin regimen for optimal glycemic control. 2. Monitor PO intake, wt, labs and skin integrity 3. F/U as low risk in 7 days Expected Outcomes/Goals Expected Outcomes/Goals 1. PO intake to meet at least 75% of nutritional needs. 2. Wt stability, skin to remain intact, labs to approach WNL.
[2019-01-19] MEDS: INSULIN LISPRO SLIDING SCALE 100 UNITS/ML UNIT SUBQ SCH ×4 (06:29→20:44)
[2019-01-19] MEDS: Escitalopram Oxalate 5 mg Tab PO SCH (09:08)
[2019-01-19] MEDS: Lactobacillus Rhamnosus GG 15 Billion CFU CAP.SPRINK PO SCH (09:09)
[2019-01-19] MEDS: Therahoney Gel 42.5gm Tube TP SCH (09:09)
[2019-01-19] MEDS: Multivitamin Tab PO SCH (09:09)
[2019-01-19] MEDS: Maalox 30 mL Cup PO PRN (20:44)
--- NOTE | 2019-01-20 00:12 | Progress Notes ---
DATE: SUBJECTIVE: The patient seen and chart reviewed. Discussed with staff. The patient remains impulsive, unpredictable. The patient has a restraining order and he has a court date toward the end of the month. Concerns about behaviors, hypersexual behaviors, very unpredictable. Generally calm, cooperative, mostly keeps to himself, difficult to place at this time because of his history, unable to care for his basic needs, gravely disabled. PLAN: We will continue to monitor. radiology services manager is actively trying to find a place for the patient to go. [facility]# [id number]
--- NOTE | 2019-01-20 01:35 | General Progress Note ---
Subjective - Review of Systems Service Date: 01/20/19 Subjective: Patient is awake, alert, afebrile Blood sugars elevated 200's VS T 97.8 P 81 BP 145/90 R 18 Objective - Results Result Diagrams: 01/10/19 03:10 01/13/19 15:00 Recent Labs: Laboratory Last Values WBC 5.5 Th/cmm (4.8-10.8) 01/10/19 03:10 RBC 5.08 Mil/cmm (3.80-5.80) 01/10/19 03:10 Hgb 17.7 gm/dL (12-16) 01/10/19 03:10 Hct 51.6 % (41.0-60) 01/10/19 03:10 MCV 101.6 fl (80-99) H 01/10/19 03:10 MCH 34.8 pg (27.0-31.0) H 01/10/19 03:10 MCHC Differential 34.2 pg (28.0-36.0) 01/10/19 03:10 RDW 14.1 % (11.5-20.0) 01/10/19 03:10 Plt Count 154 Th/cmm (150-400) 01/10/19 03:10 MPV 7.9 fl 01/10/19 03:10 Neutrophils % 62.7 % (40.0-80.0) 01/10/19 03:10 Lymphocytes % 26.1 % (20.0-50.0) 01/10/19 03:10 Monocytes % 10.0 % (2.0-10.0) 01/10/19 03:10 Eosinophils % 0.7 % (0.0-5.0) 01/10/19 03:10 Basophils % 0.5 % (0.0-2.0) 01/10/19 03:10 Sodium 136 mEq/L (136-145) 01/13/19 15:00 Potassium 3.7 mEq/L (3.5-5.1) 01/13/19 15:00 Chloride 103 mEq/L (98-107) 01/13/19 15:00 Carbon Dioxide 24.8 mEq/L (21.0-31.0) 01/13/19 15:00 Anion Gap 11.9 (7.0-16.0) 01/13/19 15:00 BUN 20 mg/dL (7-25) 01/13/19 15:00 Creatinine 1.0 mg/dL (0.7-1.3) 01/13/19 15:00 Est GFR ( Amer) > 60.0 ml/min (>90) 01/13/19 15:00 Est GFR (Non-Af Amer) > 60.0 ml/min 01/13/19 15:00 BUN/Creatinine Ratio 20.0 01/13/19 15:00 Glucose 237 mg/dL (70-105) H 01/13/19 15:00 POC Glucose 129 MG/DL (70 - 105) H 01/18/19 06:27 Calcium 9.1 mg/dL (8.6-10.3) 01/13/19 15:00 Total Bilirubin 2.0 mg/dL (0.3-1.0) H 01/10/19 03:10 AST 108 U/L (13-39) H 01/10/19 03:10 ALT 66 U/L (7-52) H 01/10/19 03:10 Alkaline Phosphatase 121 U/L (34-104) H 01/10/19 03:10 Creatine Kinase 222 U/L (30-223) 01/10/19 03:10 Troponin I 0.04 ng/mL (0.01-0.05) 01/10/19 03:10 Total Protein 6.2 gm/dL (6.0-8.3) 01/10/19 03:10 Albumin 3.6 gm/dL (4.2-5.5) L 01/10/19 03:10 Globulin 2.6 gm/dL 01/10/19 03:10 Albumin/Globulin Ratio 1.4 (1.0-1.8) 01/10/19 03:10 TSH 0.35 uIU/ml (0.34-5.60) 01/10/19 03:10 Urine Source RANDOM 01/10/19 03:35 Urine Color YELLOW 01/10/19 03:35 Urine Clarity CLOUDY (CLEAR) 01/10/19 03:35 Urine pH 7.5 (4.6 - 8.0) 01/10/19 03:35 Ur Specific [place] 1.025 (1.005-1.030) 01/10/19 03:35 Urine Protein >=300 mg/dL (NEGATIVE) 01/10/19 03:35 Urine Glucose (UA) 100 mg/dL (NEGATIVE) H 01/10/19 03:35 Urine Ketones TRACE mg/dL (NEGATIVE) 01/10/19 03:35 Urine Blood SMALL (NEGATIVE) H 01/10/19 03:35 Urine Nitrate POSITIVE (NEGATIVE) H 01/10/19 03:35 Urine Bilirubin NEGATIVE (NEGATIVE) 01/10/19 03:35 Urine Urobilinogen 2.0 E.U./dL (0.2 - 1.0) 01/10/19 03:35 Ur Leukocyte Esterase SMALL (NEGATIVE) H 01/10/19 03:35 Urine RBC 0-2 /hpf (0-5) H 01/10/19 03:35 Urine WBC 6-10 /hpf (0-5) 01/10/19 03:35 Ur Epithelial Cells RARE /lpf (FEW) 01/10/19 03:35 Urine Bacteria FEW /hpf (NONE SEEN) 01/10/19 03:35 Ethyl Alcohol 103 mg/dL (0-10) H 01/10/19 03:10 RPR NONREACTIVE (NONREACTIVE) 01/10/19 03:10 - Physical Exam Vitals and I&O: Vital Signs Temp 97.8 F 01/19/19 14:00 Pulse 81 01/19/19 14:00 Resp 19 01/19/19 20:00 BP 145/90 01/19/19 14:00 Pulse Ox 98 01/19/19 14:00 Intake & Output 01/19/19 01/19/19 01/20/19 06:59 18:59 06:59 Intake Total 240 1000 Balance 240 1000 Intake: Oral 240 1000 Other: # Voids 2 4 # Bowel Movements 0 1 Stool Characteristics Formed Formed Formed Active Medications: Current Medications Acetaminophen (Tylenol) 650 mg PO Q4HR PRN PRN Reason: Mild Pain / Temp above 100 Stop: 03/11/19 05:01 Al Hydrox/Mg Hydrox/Simethicone (Maalox) 30 ml PO Q4HR PRN PRN Reason: GI DISTRESS Stop: 03/11/19 05:01 Last Admin: 01/19/19 20:44 Dose: 30 ml Ciprofloxacin (Cipro) 500 mg PO BID MILA Stop: 03/13/19 08:59 Last Admin: 01/19/19 17:05 Dose: 500 mg Dextrose (D50w) 50 ml IVP PRN PRN PRN Reason: BS below 70 & not tolerate po Stop: 03/17/19 08:13 Dextrose (Glutose 40%) 18.75 gm PO PRN PRN PRN Reason: BS below 70 & tolerate po Stop: 03/17/19 08:13 Escitalopram Oxalate (Lexapro) 7.5 mg PO DAILY MILA; Protocol Stop: 03/17/19 08:59 Last Admin: 01/19/19 09:08 Dose: 7.5 mg Glucagon (Glucagen) 1 mg IM PRN PRN PRN Reason: BS below 70&dextrose ineffecti Stop: 03/17/19 08:13 Insulin Human Lispro (Humalog Insulin Sliding Scale) 0 units SUBQ ACHS MILA; Protocol Stop: 03/17/19 11:29 Last Admin: 01/19/19 20:44 Dose: Not Given Lactobacillus Rhamnosus (Culturelle 15b) 1 each PO DAILY MILA Stop: 03/14/19 15:59 Last Admin: 01/19/19 09:09 Dose: 1 each Lorazepam (Ativan) 0.5 mg PO Q4HR PRN; Protocol PRN Reason: Anxiety Stop: 02/09/19 05:01 Last Admin: 01/14/19 18:11 Dose: 0.5 mg Magnesium Hydroxide (Milk Of Magnesia) 30 ml PO HS PRN PRN Reason: Constipation Stop: 03/13/19 21:16 Last Admin: 01/12/19 21:28 Dose: 30 ml Metformin HCl (Glucophage) 500 mg PO BIDWM MILA Stop: 03/15/19 17:59 Last Admin: 01/19/19 17:05 Dose: 500 mg Miscellaneous (Probiotic Screen) 1 ea MC PRN PRN PRN Reason: PROTOCOL Stop: 03/14/19 15:35 Multivitamins/Vitamin C (Theragran) 1 tab PO DAILY MILA Stop: 03/11/19 08:59 Last Admin: 01/19/19 09:09 Dose: 1 tab Wound Care/Dressing Products (Therahoney) 1 appl TP DAILY MILA Stop: 03/13/19 17:14 Last Admin: 01/19/19 09:09 Dose: 1 appl Zolpidem Tartrate (Ambien) 5 mg PO HS PRN PRN Reason: Insomnia Stop: 03/11/19 05:01 Last Admin: 01/15/19 23:36 Dose: 5 mg General: Alert, No acute distress HEENT: Atraumatic, PERRLA, EOMI Neck: Supple Cardiovascular: Regular rate, Normal S1, Normal S2 Lungs: Clear to auscultation Abdomen: Bowel sounds Extremities: no Clubbing, no Cyanosis Assessment/Plan - Assessment Assessment: psychosis UTI on Cipro PO hypokalemia -- resolved alcohol intoxication HTN elevated .. clonidine added PRN CVA insomnia constipation hyperglycemia ... improved with Metformin - Plan Plan: admit to [facility] start cipro 500mg PO bid K 40meq PO daily will add clonidine PRN will start Metformin 500mg PO BID Nutritional Asmnt/Malnutr-PDOC - Dietary Evaluation Malnutrition Findings (Please click <Entered> for more info): Nutritional Asmnt/Malnutrition Start: 01/15/19 13: 54 Text: Status: Complete Freq: Protocol: Document 01/15/19 13:54 FANY (Rec: 01/15/19 14:04 MYRA [email or web address]) Nutritional Asmnt/Malnutrition Patient General Information Nutritional Screening Moderate Risk Diagnosis psychosis Pertinent Medical Hx/Surgical Hx HTN, CVA/TIA, stomach surgery d/t ulcers, s/p tracheostomy Subjective Information Pt seen eating in his room, denied any question or concern about current diet/meals. Per EMR, PO intake 100%. Not appropriate to provide diabetic education d/t pt mental status. Current Diet Order/ Nutrition Support soft, NCS, cardiac, ELIF Pertinent Medications culturelle, glucophage, theragran Pertinent Labs 01/13 glucose 237 5/8 K 3.0, Glucose 224, Ca 8.5 , alb 3.6 Nutritional Hx/Data Height 1.73 m Height (Calculated Centimeters) 172.7 Current Weight (lbs) 63.503 kg Weight (Calculated Kilograms) 63.5 Weight (Calculated Grams) 52942.9 [place] Body Weight 154 Body Mass Index (BMI) 21.2 Weight Status Approriate GI Symptoms GI Symptoms None Last BM 01/13 Difficult in: None Skin Integrity/Comment: redness. conrado 15 Current %PO Good (75-100%) Estimated Nutritional Goals BEE in Kcals: Using Current wt Calories/Kcals/Kg 25-30 Kcals Calculated 5797-3589 Protein: Using Current wt Protein g/k Protein Calculated 64 Fluid: ml 1600-1920ml (1ml/kcal) Nutritional Problem 1. Problem Problem altered nutrition related labs Etiology hyperglycemia Signs/Symptoms: glucose 224-237 Malnutrition Alert Is there a minimum of two criteria No selected? Query Text:Check all the applicable criteria. A minimum of two criteria are recommended for diagnosis of either severe or non-severe malnutrition. Malnutrition Related to Morbid Obesity Malnutrition related to morbid obesity No Intervention/Recommendation Comments 1. Continue with soft NCS, cardiac diet as ordered. MD to adjust insulin regimen for optimal glycemic control. 2. Monitor PO intake, wt, labs and skin integrity 3. F/U as low risk in 7 days Expected Outcomes/Goals Expected Outcomes/Goals 1. PO intake to meet at least 75% of nutritional needs. 2. Wt stability, skin to remain intact, labs to approach WNL.
[2019-01-20] MEDS: INSULIN LISPRO SLIDING SCALE 100 UNITS/ML UNIT SUBQ SCH ×4 (06:43→20:49)
[2019-01-20] MEDS: Therahoney Gel 42.5gm Tube TP SCH (08:32)
[2019-01-20] MEDS: Multivitamin Tab PO SCH (08:32)
[2019-01-20] MEDS: Lactobacillus Rhamnosus GG 15 Billion CFU CAP.SPRINK PO SCH (08:32)
--- NOTE | 2019-01-20 21:45 | Progress Notes ---
DATE: 01/20/2019 SUBJECTIVE: The patient was seen today 01/20/2019, remains confused, argumentative, fixated on different staff members getting different blood sugars and calling the ones who get higher blood sugars "bad," very impulsive, unpredictable. Apparently, he has a court date coming up. He has a restraining order. Apparently very hypersexual, remains unpredictable, gravely disabled, unable to care for his basic needs. PLAN: We are also trying to help him with placement. We will be titrating doses of medications. Increase dosages of SSRI medications to target mood and poor impulse control. JOB# [id number]
--- NOTE | 2019-01-21 06:22 | General Progress Note ---
Subjective - Review of Systems Service Date: 01/21/19 Subjective: Patient is awake, alert, afebrile Blood sugars elevated 200's VS T 99.8 P 68 BP 131/80 R 19 Objective - Results Result Diagrams: 01/10/19 03:10 01/13/19 15:00 Recent Labs: Laboratory Last Values WBC 5.5 Th/cmm (4.8-10.8) 01/10/19 03:10 RBC 5.08 Mil/cmm (3.80-5.80) 01/10/19 03:10 Hgb 17.7 gm/dL (12-16) 01/10/19 03:10 Hct 51.6 % (41.0-60) 01/10/19 03:10 MCV 101.6 fl (80-99) H 01/10/19 03:10 MCH 34.8 pg (27.0-31.0) H 01/10/19 03:10 MCHC Differential 34.2 pg (28.0-36.0) 01/10/19 03:10 RDW 14.1 % (11.5-20.0) 01/10/19 03:10 Plt Count 154 Th/cmm (150-400) 01/10/19 03:10 MPV 7.9 fl 01/10/19 03:10 Neutrophils % 62.7 % (40.0-80.0) 01/10/19 03:10 Lymphocytes % 26.1 % (20.0-50.0) 01/10/19 03:10 Monocytes % 10.0 % (2.0-10.0) 01/10/19 03:10 Eosinophils % 0.7 % (0.0-5.0) 01/10/19 03:10 Basophils % 0.5 % (0.0-2.0) 01/10/19 03:10 Sodium 136 mEq/L (136-145) 01/13/19 15:00 Potassium 3.7 mEq/L (3.5-5.1) 01/13/19 15:00 Chloride 103 mEq/L (98-107) 01/13/19 15:00 Carbon Dioxide 24.8 mEq/L (21.0-31.0) 01/13/19 15:00 Anion Gap 11.9 (7.0-16.0) 01/13/19 15:00 BUN 20 mg/dL (7-25) 01/13/19 15:00 Creatinine 1.0 mg/dL (0.7-1.3) 01/13/19 15:00 Est GFR ( Amer) > 60.0 ml/min (>90) 01/13/19 15:00 Est GFR (Non-Af Amer) > 60.0 ml/min 01/13/19 15:00 BUN/Creatinine Ratio 20.0 01/13/19 15:00 Glucose 237 mg/dL (70-105) H 01/13/19 15:00 POC Glucose 129 MG/DL (70 - 105) H 01/18/19 06:27 Calcium 9.1 mg/dL (8.6-10.3) 01/13/19 15:00 Total Bilirubin 2.0 mg/dL (0.3-1.0) H 01/10/19 03:10 AST 108 U/L (13-39) H 01/10/19 03:10 ALT 66 U/L (7-52) H 01/10/19 03:10 Alkaline Phosphatase 121 U/L (34-104) H 01/10/19 03:10 Creatine Kinase 222 U/L (30-223) 01/10/19 03:10 Troponin I 0.04 ng/mL (0.01-0.05) 01/10/19 03:10 Total Protein 6.2 gm/dL (6.0-8.3) 01/10/19 03:10 Albumin 3.6 gm/dL (4.2-5.5) L 01/10/19 03:10 Globulin 2.6 gm/dL 01/10/19 03:10 Albumin/Globulin Ratio 1.4 (1.0-1.8) 01/10/19 03:10 TSH 0.35 uIU/ml (0.34-5.60) 01/10/19 03:10 Urine Source RANDOM 01/10/19 03:35 Urine Color YELLOW 01/10/19 03:35 Urine Clarity CLOUDY (CLEAR) 01/10/19 03:35 Urine pH 7.5 (4.6 - 8.0) 01/10/19 03:35 Ur Specific [place] 1.025 (1.005-1.030) 01/10/19 03:35 Urine Protein >=300 mg/dL (NEGATIVE) 01/10/19 03:35 Urine Glucose (UA) 100 mg/dL (NEGATIVE) H 01/10/19 03:35 Urine Ketones TRACE mg/dL (NEGATIVE) 01/10/19 03:35 Urine Blood SMALL (NEGATIVE) H 01/10/19 03:35 Urine Nitrate POSITIVE (NEGATIVE) H 01/10/19 03:35 Urine Bilirubin NEGATIVE (NEGATIVE) 01/10/19 03:35 Urine Urobilinogen 2.0 E.U./dL (0.2 - 1.0) 01/10/19 03:35 Ur Leukocyte Esterase SMALL (NEGATIVE) H 01/10/19 03:35 Urine RBC 0-2 /hpf (0-5) H 01/10/19 03:35 Urine WBC 6-10 /hpf (0-5) 01/10/19 03:35 Ur Epithelial Cells RARE /lpf (FEW) 01/10/19 03:35 Urine Bacteria FEW /hpf (NONE SEEN) 01/10/19 03:35 Ethyl Alcohol 103 mg/dL (0-10) H 01/10/19 03:10 RPR NONREACTIVE (NONREACTIVE) 01/10/19 03:10 - Physical Exam Vitals and I&O: Vital Signs Temp 97.8 F 01/20/19 20:00 Pulse 68 01/20/19 20:00 Resp 19 01/20/19 20:00 BP 131/80 01/20/19 20:00 Pulse Ox 95 01/20/19 20:00 Intake & Output 01/20/19 01/20/19 01/21/19 06:59 18:59 06:59 Intake Total 480 1000 Balance 480 1000 Intake: Oral 480 1000 Other: # Voids 2 4 # Bowel Movements 1 Stool Characteristics Formed Formed Formed Active Medications: Current Medications Acetaminophen (Tylenol) 650 mg PO Q4HR PRN PRN Reason: Mild Pain / Temp above 100 Stop: 03/11/19 05:01 Al Hydrox/Mg Hydrox/Simethicone (Maalox) 30 ml PO Q4HR PRN PRN Reason: GI DISTRESS Stop: 03/11/19 05:01 Last Admin: 01/19/19 20:44 Dose: 30 ml Ciprofloxacin (Cipro) 500 mg PO BID MILA Stop: 03/13/19 08:59 Last Admin: 01/20/19 16:51 Dose: 500 mg Dextrose (D50w) 50 ml IVP PRN PRN PRN Reason: BS below 70 & not tolerate po Stop: 03/17/19 08:13 Dextrose (Glutose 40%) 18.75 gm PO PRN PRN PRN Reason: BS below 70 & tolerate po Stop: 03/17/19 08:13 Escitalopram Oxalate (Lexapro) 10 mg PO DAILY MILA; Protocol Stop: 03/21/19 08:59 Glucagon (Glucagen) 1 mg IM PRN PRN PRN Reason: BS below 70&dextrose ineffecti Stop: 03/17/19 08:13 Insulin Human Lispro (Humalog Insulin Sliding Scale) 0 units SUBQ ACHS MILA; Protocol Stop: 03/17/19 11:29 Last Admin: 01/20/19 20:49 Dose: 2 units Lactobacillus Rhamnosus (Culturelle 15b) 1 each PO DAILY MILA Stop: 03/14/19 15:59 Last Admin: 01/20/19 08:32 Dose: 1 each Lorazepam (Ativan) 0.5 mg PO Q4HR PRN; Protocol PRN Reason: Anxiety Stop: 02/09/19 05:01 Last Admin: 01/14/19 18:11 Dose: 0.5 mg Magnesium Hydroxide (Milk Of Magnesia) 30 ml PO HS PRN PRN Reason: Constipation Stop: 03/13/19 21:16 Last Admin: 01/12/19 21:28 Dose: 30 ml Metformin HCl (Glucophage) 500 mg PO BIDWM MILA Stop: 03/15/19 17:59 Last Admin: 01/20/19 18:40 Dose: Not Given Miscellaneous (Probiotic Screen) 1 ea MC PRN PRN PRN Reason: PROTOCOL Stop: 03/14/19 15:35 Multivitamins/Vitamin C (Theragran) 1 tab PO DAILY MILA Stop: 03/11/19 08:59 Last Admin: 01/20/19 08:32 Dose: 1 tab Wound Care/Dressing Products (Therahoney) 1 appl TP DAILY MILA Stop: 03/13/19 17:14 Last Admin: 01/20/19 08:32 Dose: 1 appl Zolpidem Tartrate (Ambien) 5 mg PO HS PRN PRN Reason: Insomnia Stop: 03/11/19 05:01 Last Admin: 01/15/19 23:36 Dose: 5 mg General: Alert, No acute distress HEENT: Atraumatic, PERRLA, EOMI Neck: Supple Cardiovascular: Regular rate, Normal S1, Normal S2 Lungs: Clear to auscultation Abdomen: Bowel sounds Extremities: no Clubbing, no Cyanosis Assessment/Plan - Assessment Assessment: psychosis UTI on Cipro PO hypokalemia -- resolved alcohol intoxication HTN elevated .. clonidine added PRN CVA insomnia constipation hyperglycemia ... improved with Metformin - Plan Plan: admit to [facility] start cipro 500mg PO bid K 40meq PO daily will add clonidine PRN will start Metformin 500mg PO BID Nutritional Asmnt/Malnutr-PDOC - Dietary Evaluation Malnutrition Findings (Please click <Entered> for more info): Nutritional Asmnt/Malnutrition Start: 01/15/19 13: 54 Text: Status: Complete Freq: Protocol: Document 01/15/19 13:54 LCALIXG (Rec: 01/15/19 14:04 [email or web address]) Nutritional Asmnt/Malnutrition Patient General Information Nutritional Screening Moderate Risk Diagnosis psychosis Pertinent Medical Hx/Surgical Hx HTN, CVA/TIA, stomach surgery d/t ulcers, s/p tracheostomy Subjective Information Pt seen eating in his room, denied any question or concern about current diet/meals. Per EMR, PO intake 100%. Not appropriate to provide diabetic education d/t pt mental status. Current Diet Order/ Nutrition Support soft, NCS, cardiac, ELIF Pertinent Medications culturelle, glucophage, theragran Pertinent Labs 01/13 glucose 237 5/8 K 3.0, Glucose 224, Ca 8.5 , alb 3.6 Nutritional Hx/Data Height 1.73 m Height (Calculated Centimeters) 172.7 Current Weight (lbs) 63.503 kg Weight (Calculated Kilograms) 63.5 Weight (Calculated Grams) 23577.9 [place] Body Weight 154 Body Mass Index (BMI) 21.2 Weight Status Approriate GI Symptoms GI Symptoms None Last BM 01/13 Difficult in: None Skin Integrity/Comment: redness. conrado 15 Current %PO Good (75-100%) Estimated Nutritional Goals BEE in Kcals: Using Current wt Calories/Kcals/Kg 25-30 Kcals Calculated 2487-2213 Protein: Using Current wt Protein g/k Protein Calculated 64 Fluid: ml 1600-1920ml (1ml/kcal) Nutritional Problem 1. Problem Problem altered nutrition related labs Etiology hyperglycemia Signs/Symptoms: glucose 224-237 Malnutrition Alert Is there a minimum of two criteria No selected? Query Text:Check all the applicable criteria. A minimum of two criteria are recommended for diagnosis of either severe or non-severe malnutrition. Malnutrition Related to Morbid Obesity Malnutrition related to morbid obesity No Intervention/Recommendation Comments 1. Continue with soft NCS, cardiac diet as ordered. MD to adjust insulin regimen for optimal glycemic control. 2. Monitor PO intake, wt, labs and skin integrity 3. F/U as low risk in 7 days Expected Outcomes/Goals Expected Outcomes/Goals 1. PO intake to meet at least 75% of nutritional needs. 2. Wt stability, skin to remain intact, labs to approach WNL.
[2019-01-21] MEDS: Escitalopram Oxalate 5 mg Tab PO SCH (08:14)
[2019-01-21] MEDS: Lactobacillus Rhamnosus GG 15 Billion CFU CAP.SPRINK PO SCH (08:16)
[2019-01-21] MEDS: Multivitamin Tab PO SCH (08:16)
[2019-01-21] MEDS: Therahoney Gel 42.5gm Tube TP SCH (08:17)
[2019-01-21] MEDS: INSULIN LISPRO SLIDING SCALE 100 UNITS/ML UNIT SUBQ SCH ×3 (11:40→20:30)
--- NOTE | 2019-01-21 18:24 | Progress Notes ---
DATE: 01/21/2019 SUBJECTIVE: The patient is calm and generally more cooperative, likely at his baseline. Fully oriented. Difficult to understand, withdrawn. He is pretty impulsive, unpredictable, in regards to behaviors, but seems to be showing some signs of improvement. Very poor insight. He is redirectable, not needing a high level of prompting, staff redirection, staff care. Still fixated on some staff members drawing a higher blood sugar, otherwise testing him for a lower blood sugar. Recent dose increase of Lexapro. We will continue to monitor. The patient will need help with placement, unable to take care of his basic needs. JOB# [id number]
--- NOTE | 2019-01-22 07:40 | Progress Notes ---
DATE: 01/22/2019 The patient in the hospital, difficult placement, hypersexual behavior, has restraining order, court date coming up remain somewhat impulsive, unpredictable, difficult to fully predict his behaviors. Fair sleep. Fair appetite. Still hard to understand at times. Otherwise, no agitation, no escalation of behaviors. He has been generally redirectable. Medications were noted. We will continue to monitor. Monitor and follow up. We are trying hard to work on placement. The patient is gravely disabled. JOB# [id number]
--- NOTE | 2019-01-22 08:06 | General Progress Note ---
Subjective - Review of Systems Service Date: 01/22/19 Subjective: Patient is awake, alert, afebrile Blood sugars elevated 200's VS T 97.2 P 61 BP 148/91 R 18 Objective - Results Result Diagrams: 01/10/19 03:10 01/13/19 15:00 Recent Labs: Laboratory Last Values WBC 5.5 Th/cmm (4.8-10.8) 01/10/19 03:10 RBC 5.08 Mil/cmm (3.80-5.80) 01/10/19 03:10 Hgb 17.7 gm/dL (12-16) 01/10/19 03:10 Hct 51.6 % (41.0-60) 01/10/19 03:10 MCV 101.6 fl (80-99) H 01/10/19 03:10 MCH 34.8 pg (27.0-31.0) H 01/10/19 03:10 MCHC Differential 34.2 pg (28.0-36.0) 01/10/19 03:10 RDW 14.1 % (11.5-20.0) 01/10/19 03:10 Plt Count 154 Th/cmm (150-400) 01/10/19 03:10 MPV 7.9 fl 01/10/19 03:10 Neutrophils % 62.7 % (40.0-80.0) 01/10/19 03:10 Lymphocytes % 26.1 % (20.0-50.0) 01/10/19 03:10 Monocytes % 10.0 % (2.0-10.0) 01/10/19 03:10 Eosinophils % 0.7 % (0.0-5.0) 01/10/19 03:10 Basophils % 0.5 % (0.0-2.0) 01/10/19 03:10 Sodium 136 mEq/L (136-145) 01/13/19 15:00 Potassium 3.7 mEq/L (3.5-5.1) 01/13/19 15:00 Chloride 103 mEq/L (98-107) 01/13/19 15:00 Carbon Dioxide 24.8 mEq/L (21.0-31.0) 01/13/19 15:00 Anion Gap 11.9 (7.0-16.0) 01/13/19 15:00 BUN 20 mg/dL (7-25) 01/13/19 15:00 Creatinine 1.0 mg/dL (0.7-1.3) 01/13/19 15:00 Est GFR ( Amer) > 60.0 ml/min (>90) 01/13/19 15:00 Est GFR (Non-Af Amer) > 60.0 ml/min 01/13/19 15:00 BUN/Creatinine Ratio 20.0 01/13/19 15:00 Glucose 237 mg/dL (70-105) H 01/13/19 15:00 POC Glucose 129 MG/DL (70 - 105) H 01/18/19 06:27 Calcium 9.1 mg/dL (8.6-10.3) 01/13/19 15:00 Total Bilirubin 2.0 mg/dL (0.3-1.0) H 01/10/19 03:10 AST 108 U/L (13-39) H 01/10/19 03:10 ALT 66 U/L (7-52) H 01/10/19 03:10 Alkaline Phosphatase 121 U/L (34-104) H 01/10/19 03:10 Creatine Kinase 222 U/L (30-223) 01/10/19 03:10 Troponin I 0.04 ng/mL (0.01-0.05) 01/10/19 03:10 Total Protein 6.2 gm/dL (6.0-8.3) 01/10/19 03:10 Albumin 3.6 gm/dL (4.2-5.5) L 01/10/19 03:10 Globulin 2.6 gm/dL 01/10/19 03:10 Albumin/Globulin Ratio 1.4 (1.0-1.8) 01/10/19 03:10 TSH 0.35 uIU/ml (0.34-5.60) 01/10/19 03:10 Urine Source RANDOM 01/10/19 03:35 Urine Color YELLOW 01/10/19 03:35 Urine Clarity CLOUDY (CLEAR) 01/10/19 03:35 Urine pH 7.5 (4.6 - 8.0) 01/10/19 03:35 Ur Specific [place] 1.025 (1.005-1.030) 01/10/19 03:35 Urine Protein >=300 mg/dL (NEGATIVE) 01/10/19 03:35 Urine Glucose (UA) 100 mg/dL (NEGATIVE) H 01/10/19 03:35 Urine Ketones TRACE mg/dL (NEGATIVE) 01/10/19 03:35 Urine Blood SMALL (NEGATIVE) H 01/10/19 03:35 Urine Nitrate POSITIVE (NEGATIVE) H 01/10/19 03:35 Urine Bilirubin NEGATIVE (NEGATIVE) 01/10/19 03:35 Urine Urobilinogen 2.0 E.U./dL (0.2 - 1.0) 01/10/19 03:35 Ur Leukocyte Esterase SMALL (NEGATIVE) H 01/10/19 03:35 Urine RBC 0-2 /hpf (0-5) H 01/10/19 03:35 Urine WBC 6-10 /hpf (0-5) 01/10/19 03:35 Ur Epithelial Cells RARE /lpf (FEW) 01/10/19 03:35 Urine Bacteria FEW /hpf (NONE SEEN) 01/10/19 03:35 Ethyl Alcohol 103 mg/dL (0-10) H 01/10/19 03:10 RPR NONREACTIVE (NONREACTIVE) 01/10/19 03:10 - Physical Exam Vitals and I&O: Vital Signs Temp 97.2 F 01/22/19 06:07 Pulse 61 01/22/19 06:07 Resp 18 01/22/19 06:07 BP 148/91 01/22/19 06:07 Pulse Ox 94 01/22/19 06:07 Intake & Output 01/21/19 01/22/19 01/22/19 18:59 06:59 18:59 Intake Total 1000 120 Balance 1000 120 Intake: Oral 1000 120 Other: # Voids 4 3 # Bowel Movements 1 Stool Characteristics Formed Formed Active Medications: Current Medications Acetaminophen (Tylenol) 650 mg PO Q4HR PRN PRN Reason: Mild Pain / Temp above 100 Stop: 03/11/19 05:01 Al Hydrox/Mg Hydrox/Simethicone (Maalox) 30 ml PO Q4HR PRN PRN Reason: GI DISTRESS Stop: 03/11/19 05:01 Last Admin: 01/19/19 20:44 Dose: 30 ml Ciprofloxacin (Cipro) 500 mg PO BID MILA Stop: 03/13/19 08:59 Last Admin: 01/21/19 16:22 Dose: 500 mg Dextrose (D50w) 50 ml IVP PRN PRN PRN Reason: BS below 70 & not tolerate po Stop: 03/17/19 08:13 Dextrose (Glutose 40%) 18.75 gm PO PRN PRN PRN Reason: BS below 70 & tolerate po Stop: 03/17/19 08:13 Escitalopram Oxalate (Lexapro) 10 mg PO DAILY MILA; Protocol Stop: 03/21/19 08:59 Last Admin: 01/21/19 08:14 Dose: 10 mg Glucagon (Glucagen) 1 mg IM PRN PRN PRN Reason: BS below 70&dextrose ineffecti Stop: 03/17/19 08:13 Insulin Human Lispro (Humalog Insulin Sliding Scale) 0 units SUBQ ACHS MILA; Protocol Stop: 03/17/19 11:29 Last Admin: 01/21/19 20:30 Dose: Not Given Lactobacillus Rhamnosus (Culturelle 15b) 1 each PO DAILY MILA Stop: 03/14/19 15:59 Last Admin: 01/21/19 08:16 Dose: 1 each Lorazepam (Ativan) 0.5 mg PO Q4HR PRN; Protocol PRN Reason: Anxiety Stop: 02/09/19 05:01 Last Admin: 01/14/19 18:11 Dose: 0.5 mg Magnesium Hydroxide (Milk Of Magnesia) 30 ml PO HS PRN PRN Reason: Constipation Stop: 03/13/19 21:16 Last Admin: 01/12/19 21:28 Dose: 30 ml Metformin HCl (Glucophage) 500 mg PO BIDWM MILA Stop: 03/15/19 17:59 Last Admin: 01/21/19 18:37 Dose: 500 mg Miscellaneous (Probiotic Screen) 1 ea MC PRN PRN PRN Reason: PROTOCOL Stop: 03/14/19 15:35 Multivitamins/Vitamin C (Theragran) 1 tab PO DAILY MILA Stop: 03/11/19 08:59 Last Admin: 01/21/19 08:16 Dose: 1 tab Wound Care/Dressing Products (Therahoney) 1 appl TP DAILY MILA Stop: 03/13/19 17:14 Last Admin: 01/21/19 08:17 Dose: 1 appl Zolpidem Tartrate (Ambien) 5 mg PO HS PRN PRN Reason: Insomnia Stop: 03/11/19 05:01 Last Admin: 01/15/19 23:36 Dose: 5 mg General: Alert, No acute distress HEENT: Atraumatic, PERRLA, EOMI Neck: Supple Cardiovascular: Regular rate, Normal S1, Normal S2 Lungs: Clear to auscultation Abdomen: Bowel sounds Extremities: no Clubbing, no Cyanosis Assessment/Plan - Assessment Assessment: psychosis UTI on Cipro PO hypokalemia -- resolved alcohol intoxication HTN elevated .. clonidine added PRN CVA insomnia constipation hyperglycemia ... improved with Metformin - Plan Plan: admit to [facility] start cipro 500mg PO bid K 40meq PO daily will add clonidine 0.1mg PO q8PRN will start Metformin 500mg PO BID Nutritional Asmnt/Malnutr-PDOC - Dietary Evaluation Malnutrition Findings (Please click <Entered> for more info): Nutritional Asmnt/Malnutrition Start: 01/15/19 13: 54 Text: Status: Complete Freq: Protocol: Document 01/15/19 13:54 FANY (Rec: 01/15/19 14:04 MYRA [email or web address]) Nutritional Asmnt/Malnutrition Patient General Information Nutritional Screening Moderate Risk Diagnosis psychosis Pertinent Medical Hx/Surgical Hx HTN, CVA/TIA, stomach surgery d/t ulcers, s/p tracheostomy Subjective Information Pt seen eating in his room, denied any question or concern about current diet/meals. Per EMR, PO intake 100%. Not appropriate to provide diabetic education d/t pt mental status. Current Diet Order/ Nutrition Support soft, NCS, cardiac, ELIF Pertinent Medications culturelle, glucophage, theragran Pertinent Labs 01/13 glucose 237 5/8 K 3.0, Glucose 224, Ca 8.5 , alb 3.6 Nutritional Hx/Data Height 1.73 m Height (Calculated Centimeters) 172.7 Current Weight (lbs) 63.503 kg Weight (Calculated Kilograms) 63.5 Weight (Calculated Grams) 77423.9 [place] Body Weight 154 Body Mass Index (BMI) 21.2 Weight Status Approriate GI Symptoms GI Symptoms None Last BM 01/13 Difficult in: None Skin Integrity/Comment: redness. conrado 15 Current %PO Good (75-100%) Estimated Nutritional Goals BEE in Kcals: Using Current wt Calories/Kcals/Kg 25-30 Kcals Calculated 6764-2314 Protein: Using Current wt Protein g/k Protein Calculated 64 Fluid: ml 1600-1920ml (1ml/kcal) Nutritional Problem 1. Problem Problem altered nutrition related labs Etiology hyperglycemia Signs/Symptoms: glucose 224-237 Malnutrition Alert Is there a minimum of two criteria No selected? Query Text:Check all the applicable criteria. A minimum of two criteria are recommended for diagnosis of either severe or non-severe malnutrition. Malnutrition Related to Morbid Obesity Malnutrition related to morbid obesity No Intervention/Recommendation Comments 1. Continue with soft NCS, cardiac diet as ordered. MD to adjust insulin regimen for optimal glycemic control. 2. Monitor PO intake, wt, labs and skin integrity 3. F/U as low risk in 7 days Expected Outcomes/Goals Expected Outcomes/Goals 1. PO intake to meet at least 75% of nutritional needs. 2. Wt stability, skin to remain intact, labs to approach WNL.
[2019-01-22] MEDS: Escitalopram Oxalate 5 mg Tab PO SCH (08:42)
[2019-01-22] MEDS: Lactobacillus Rhamnosus GG 15 Billion CFU CAP.SPRINK PO SCH (08:43)
[2019-01-22] MEDS: Multivitamin Tab PO SCH (08:44)
[2019-01-22] MEDS: Therahoney Gel 42.5gm Tube TP SCH (08:46)
[2019-01-22] MEDS: INSULIN LISPRO SLIDING SCALE 100 UNITS/ML UNIT SUBQ SCH ×3 (11:57→20:11)
[2019-01-23] MEDS: INSULIN LISPRO SLIDING SCALE 100 UNITS/ML UNIT SUBQ SCH ×4 (06:34→21:05)
[2019-01-23] MEDS: Escitalopram Oxalate 5 mg Tab PO SCH (08:36)
[2019-01-23] MEDS: Lactobacillus Rhamnosus GG 15 Billion CFU CAP.SPRINK PO SCH (08:36)
[2019-01-23] MEDS: Multivitamin Tab PO SCH (08:36)
[2019-01-23] MEDS: Therahoney Gel 42.5gm Tube TP SCH (08:37)
--- NOTE | 2019-01-23 12:35 | General Progress Note ---
Subjective - Review of Systems Service Date: 01/23/19 Subjective: Patient is awake, alert, afebrile Blood sugars elevated 200's VS T 98.2 P 77 BP 155/92 R 18 Objective - Results Result Diagrams: 01/10/19 03:10 01/13/19 15:00 Recent Labs: Laboratory Last Values WBC 5.5 Th/cmm (4.8-10.8) 01/10/19 03:10 RBC 5.08 Mil/cmm (3.80-5.80) 01/10/19 03:10 Hgb 17.7 gm/dL (12-16) 01/10/19 03:10 Hct 51.6 % (41.0-60) 01/10/19 03:10 MCV 101.6 fl (80-99) H 01/10/19 03:10 MCH 34.8 pg (27.0-31.0) H 01/10/19 03:10 MCHC Differential 34.2 pg (28.0-36.0) 01/10/19 03:10 RDW 14.1 % (11.5-20.0) 01/10/19 03:10 Plt Count 154 Th/cmm (150-400) 01/10/19 03:10 MPV 7.9 fl 01/10/19 03:10 Neutrophils % 62.7 % (40.0-80.0) 01/10/19 03:10 Lymphocytes % 26.1 % (20.0-50.0) 01/10/19 03:10 Monocytes % 10.0 % (2.0-10.0) 01/10/19 03:10 Eosinophils % 0.7 % (0.0-5.0) 01/10/19 03:10 Basophils % 0.5 % (0.0-2.0) 01/10/19 03:10 Sodium 136 mEq/L (136-145) 01/13/19 15:00 Potassium 3.7 mEq/L (3.5-5.1) 01/13/19 15:00 Chloride 103 mEq/L (98-107) 01/13/19 15:00 Carbon Dioxide 24.8 mEq/L (21.0-31.0) 01/13/19 15:00 Anion Gap 11.9 (7.0-16.0) 01/13/19 15:00 BUN 20 mg/dL (7-25) 01/13/19 15:00 Creatinine 1.0 mg/dL (0.7-1.3) 01/13/19 15:00 Est GFR ( Amer) > 60.0 ml/min (>90) 01/13/19 15:00 Est GFR (Non-Af Amer) > 60.0 ml/min 01/13/19 15:00 BUN/Creatinine Ratio 20.0 01/13/19 15:00 Glucose 237 mg/dL (70-105) H 01/13/19 15:00 POC Glucose 129 MG/DL (70 - 105) H 01/18/19 06:27 Calcium 9.1 mg/dL (8.6-10.3) 01/13/19 15:00 Total Bilirubin 2.0 mg/dL (0.3-1.0) H 01/10/19 03:10 AST 108 U/L (13-39) H 01/10/19 03:10 ALT 66 U/L (7-52) H 01/10/19 03:10 Alkaline Phosphatase 121 U/L (34-104) H 01/10/19 03:10 Creatine Kinase 222 U/L (30-223) 01/10/19 03:10 Troponin I 0.04 ng/mL (0.01-0.05) 01/10/19 03:10 Total Protein 6.2 gm/dL (6.0-8.3) 01/10/19 03:10 Albumin 3.6 gm/dL (4.2-5.5) L 01/10/19 03:10 Globulin 2.6 gm/dL 01/10/19 03:10 Albumin/Globulin Ratio 1.4 (1.0-1.8) 01/10/19 03:10 TSH 0.35 uIU/ml (0.34-5.60) 01/10/19 03:10 Urine Source RANDOM 01/10/19 03:35 Urine Color YELLOW 01/10/19 03:35 Urine Clarity CLOUDY (CLEAR) 01/10/19 03:35 Urine pH 7.5 (4.6 - 8.0) 01/10/19 03:35 Ur Specific [place] 1.025 (1.005-1.030) 01/10/19 03:35 Urine Protein >=300 mg/dL (NEGATIVE) 01/10/19 03:35 Urine Glucose (UA) 100 mg/dL (NEGATIVE) H 01/10/19 03:35 Urine Ketones TRACE mg/dL (NEGATIVE) 01/10/19 03:35 Urine Blood SMALL (NEGATIVE) H 01/10/19 03:35 Urine Nitrate POSITIVE (NEGATIVE) H 01/10/19 03:35 Urine Bilirubin NEGATIVE (NEGATIVE) 01/10/19 03:35 Urine Urobilinogen 2.0 E.U./dL (0.2 - 1.0) 01/10/19 03:35 Ur Leukocyte Esterase SMALL (NEGATIVE) H 01/10/19 03:35 Urine RBC 0-2 /hpf (0-5) H 01/10/19 03:35 Urine WBC 6-10 /hpf (0-5) 01/10/19 03:35 Ur Epithelial Cells RARE /lpf (FEW) 01/10/19 03:35 Urine Bacteria FEW /hpf (NONE SEEN) 01/10/19 03:35 Ethyl Alcohol 103 mg/dL (0-10) H 01/10/19 03:10 RPR NONREACTIVE (NONREACTIVE) 01/10/19 03:10 - Physical Exam Vitals and I&O: Vital Signs Temp 98.2 F 01/23/19 07:02 Pulse 77 01/23/19 07:02 Resp 18 01/23/19 07:02 BP 155/92 01/23/19 07:02 Pulse Ox 98 01/23/19 07:02 Intake & Output 01/22/19 01/23/19 01/23/19 18:59 06:59 18:59 Intake Total 900 120 120 Balance 900 120 120 Intake: Oral 900 120 120 Other: # Voids 3 2 2 # Bowel Movements 1 0 1 Stool Characteristics Formed Formed Active Medications: Current Medications Acetaminophen (Tylenol) 650 mg PO Q4HR PRN PRN Reason: Mild Pain / Temp above 100 Stop: 03/11/19 05:01 Al Hydrox/Mg Hydrox/Simethicone (Maalox) 30 ml PO Q4HR PRN PRN Reason: GI DISTRESS Stop: 03/11/19 05:01 Last Admin: 01/19/19 20:44 Dose: 30 ml Ciprofloxacin (Cipro) 500 mg PO BID MILA Stop: 03/13/19 08:59 Last Admin: 01/23/19 08:34 Dose: 500 mg Dextrose (D50w) 50 ml IVP PRN PRN PRN Reason: BS below 70 & not tolerate po Stop: 03/17/19 08:13 Dextrose (Glutose 40%) 18.75 gm PO PRN PRN PRN Reason: BS below 70 & tolerate po Stop: 03/17/19 08:13 Escitalopram Oxalate (Lexapro) 10 mg PO DAILY MILA; Protocol Stop: 03/21/19 08:59 Last Admin: 01/23/19 08:36 Dose: 10 mg Glucagon (Glucagen) 1 mg IM PRN PRN PRN Reason: BS below 70&dextrose ineffecti Stop: 03/17/19 08:13 Insulin Human Lispro (Humalog Insulin Sliding Scale) 0 units SUBQ ACHS MILA; Protocol Stop: 03/17/19 11:29 Last Admin: 01/23/19 12:15 Dose: Not Given Lactobacillus Rhamnosus (Culturelle 15b) 1 each PO DAILY MILA Stop: 03/14/19 15:59 Last Admin: 01/23/19 08:36 Dose: 1 each Lorazepam (Ativan) 0.5 mg PO Q4HR PRN; Protocol PRN Reason: Anxiety Stop: 02/09/19 05:01 Last Admin: 01/23/19 08:36 Dose: 0.5 mg Magnesium Hydroxide (Milk Of Magnesia) 30 ml PO HS PRN PRN Reason: Constipation Stop: 03/13/19 21:16 Last Admin: 01/12/19 21:28 Dose: 30 ml Metformin HCl (Glucophage) 500 mg PO BIDWM MILA Stop: 03/15/19 17:59 Last Admin: 01/23/19 08:35 Dose: 500 mg Miscellaneous (Probiotic Screen) 1 ea MC PRN PRN PRN Reason: PROTOCOL Stop: 03/14/19 15:35 Multivitamins/Vitamin C (Theragran) 1 tab PO DAILY MILA Stop: 03/11/19 08:59 Last Admin: 01/23/19 08:36 Dose: 1 tab Wound Care/Dressing Products (Therahoney) 1 appl TP DAILY MILA Stop: 03/13/19 17:14 Last Admin: 01/23/19 08:37 Dose: 1 appl Zolpidem Tartrate (Ambien) 5 mg PO HS PRN PRN Reason: Insomnia Stop: 03/11/19 05:01 Last Admin: 01/22/19 20:35 Dose: 5 mg General: Alert, No acute distress HEENT: Atraumatic, PERRLA, EOMI Neck: Supple Cardiovascular: Regular rate, Normal S1, Normal S2 Lungs: Clear to auscultation Abdomen: Bowel sounds Extremities: no Clubbing, no Cyanosis Assessment/Plan - Assessment Assessment: psychosis UTI on Cipro PO hypokalemia -- resolved alcohol intoxication HTN elevated .. clonidine added PRN CVA insomnia constipation hyperglycemia ... improved with Metformin - Plan Plan: admit to [facility] start cipro 500mg PO bid K 40meq PO daily will add clonidine 0.1mg PO q8PRN will start Metformin 500mg PO BID Nutritional Asmnt/Malnutr-PDOC - Dietary Evaluation Malnutrition Findings (Please click <Entered> for more info): Nutritional Asmnt/Malnutrition Start: 01/15/19 13: 54 Text: Status: Complete Freq: Protocol: Document 01/15/19 13:54 ALIX (Rec: 01/15/19 14:04 ALIX [email or web address]) Nutritional Asmnt/Malnutrition Patient General Information Nutritional Screening Moderate Risk Diagnosis psychosis Pertinent Medical Hx/Surgical Hx HTN, CVA/TIA, stomach surgery d/t ulcers, s/p tracheostomy Subjective Information Pt seen eating in his room, denied any question or concern about current diet/meals. Per EMR, PO intake 100%. Not appropriate to provide diabetic education d/t pt mental status. Current Diet Order/ Nutrition Support soft, NCS, cardiac, ELIF Pertinent Medications culturelle, glucophage, theragran Pertinent Labs 01/13 glucose 237 5/8 K 3.0, Glucose 224, Ca 8.5 , alb 3.6 Nutritional Hx/Data Height 1.73 m Height (Calculated Centimeters) 172.7 Current Weight (lbs) 63.503 kg Weight (Calculated Kilograms) 63.5 Weight (Calculated Grams) 29284.9 [place] Body Weight 154 Body Mass Index (BMI) 21.2 Weight Status Approriate GI Symptoms GI Symptoms None Last BM 01/13 Difficult in: None Skin Integrity/Comment: redness. conrado 15 Current %PO Good (75-100%) Estimated Nutritional Goals BEE in Kcals: Using Current wt Calories/Kcals/Kg 25-30 Kcals Calculated 1769-0571 Protein: Using Current wt Protein g/k Protein Calculated 64 Fluid: ml 1600-1920ml (1ml/kcal) Nutritional Problem 1. Problem Problem altered nutrition related labs Etiology hyperglycemia Signs/Symptoms: glucose 224-237 Malnutrition Alert Is there a minimum of two criteria No selected? Query Text:Check all the applicable criteria. A minimum of two criteria are recommended for diagnosis of either severe or non-severe malnutrition. Malnutrition Related to Morbid Obesity Malnutrition related to morbid obesity No Intervention/Recommendation Comments 1. Continue with soft NCS, cardiac diet as ordered. MD to adjust insulin regimen for optimal glycemic control. 2. Monitor PO intake, wt, labs and skin integrity 3. F/U as low risk in 7 days Expected Outcomes/Goals Expected Outcomes/Goals 1. PO intake to meet at least 75% of nutritional needs. 2. Wt stability, skin to remain intact, labs to approach WNL.
--- NOTE | 2019-01-23 23:47 | Progress Notes ---
DATE: 01/23/2019 SUBJECTIVE: The patient is generally calmer, more likely approaching his baseline, attempting to confirm placement, mostly withdrawn, isolative, easily irritated, but no agitation, no escalation of behaviors. He has now lashing out behaviors, no hypersexual behaviors. Medications were noted. No side effects. We will monitor for further 24 hours attempt to confirm placement. JOB# [id number]
[2019-01-24] MEDS: INSULIN LISPRO SLIDING SCALE 100 UNITS/ML UNIT SUBQ SCH ×3 (06:36→16:30)
--- NOTE | 2019-01-24 07:58 | General Progress Note ---
Subjective - Review of Systems Service Date: 01/24/19 Subjective: Patient is awake, alert, afebrile Blood sugars improved VS T 97.6 P 65 BP 142/94 R 20 Objective - Results Result Diagrams: 01/10/19 03:10 01/13/19 15:00 Recent Labs: Laboratory Last Values WBC 5.5 Th/cmm (4.8-10.8) 01/10/19 03:10 RBC 5.08 Mil/cmm (3.80-5.80) 01/10/19 03:10 Hgb 17.7 gm/dL (12-16) 01/10/19 03:10 Hct 51.6 % (41.0-60) 01/10/19 03:10 MCV 101.6 fl (80-99) H 01/10/19 03:10 MCH 34.8 pg (27.0-31.0) H 01/10/19 03:10 MCHC Differential 34.2 pg (28.0-36.0) 01/10/19 03:10 RDW 14.1 % (11.5-20.0) 01/10/19 03:10 Plt Count 154 Th/cmm (150-400) 01/10/19 03:10 MPV 7.9 fl 01/10/19 03:10 Neutrophils % 62.7 % (40.0-80.0) 01/10/19 03:10 Lymphocytes % 26.1 % (20.0-50.0) 01/10/19 03:10 Monocytes % 10.0 % (2.0-10.0) 01/10/19 03:10 Eosinophils % 0.7 % (0.0-5.0) 01/10/19 03:10 Basophils % 0.5 % (0.0-2.0) 01/10/19 03:10 Sodium 136 mEq/L (136-145) 01/13/19 15:00 Potassium 3.7 mEq/L (3.5-5.1) 01/13/19 15:00 Chloride 103 mEq/L (98-107) 01/13/19 15:00 Carbon Dioxide 24.8 mEq/L (21.0-31.0) 01/13/19 15:00 Anion Gap 11.9 (7.0-16.0) 01/13/19 15:00 BUN 20 mg/dL (7-25) 01/13/19 15:00 Creatinine 1.0 mg/dL (0.7-1.3) 01/13/19 15:00 Est GFR ( Amer) > 60.0 ml/min (>90) 01/13/19 15:00 Est GFR (Non-Af Amer) > 60.0 ml/min 01/13/19 15:00 BUN/Creatinine Ratio 20.0 01/13/19 15:00 Glucose 237 mg/dL (70-105) H 01/13/19 15:00 POC Glucose 129 MG/DL (70 - 105) H 01/18/19 06:27 Calcium 9.1 mg/dL (8.6-10.3) 01/13/19 15:00 Total Bilirubin 2.0 mg/dL (0.3-1.0) H 01/10/19 03:10 AST 108 U/L (13-39) H 01/10/19 03:10 ALT 66 U/L (7-52) H 01/10/19 03:10 Alkaline Phosphatase 121 U/L (34-104) H 01/10/19 03:10 Creatine Kinase 222 U/L (30-223) 01/10/19 03:10 Troponin I 0.04 ng/mL (0.01-0.05) 01/10/19 03:10 Total Protein 6.2 gm/dL (6.0-8.3) 01/10/19 03:10 Albumin 3.6 gm/dL (4.2-5.5) L 01/10/19 03:10 Globulin 2.6 gm/dL 01/10/19 03:10 Albumin/Globulin Ratio 1.4 (1.0-1.8) 01/10/19 03:10 TSH 0.35 uIU/ml (0.34-5.60) 01/10/19 03:10 Urine Source RANDOM 01/10/19 03:35 Urine Color YELLOW 01/10/19 03:35 Urine Clarity CLOUDY (CLEAR) 01/10/19 03:35 Urine pH 7.5 (4.6 - 8.0) 01/10/19 03:35 Ur Specific [place] 1.025 (1.005-1.030) 01/10/19 03:35 Urine Protein >=300 mg/dL (NEGATIVE) 01/10/19 03:35 Urine Glucose (UA) 100 mg/dL (NEGATIVE) H 01/10/19 03:35 Urine Ketones TRACE mg/dL (NEGATIVE) 01/10/19 03:35 Urine Blood SMALL (NEGATIVE) H 01/10/19 03:35 Urine Nitrate POSITIVE (NEGATIVE) H 01/10/19 03:35 Urine Bilirubin NEGATIVE (NEGATIVE) 01/10/19 03:35 Urine Urobilinogen 2.0 E.U./dL (0.2 - 1.0) 01/10/19 03:35 Ur Leukocyte Esterase SMALL (NEGATIVE) H 01/10/19 03:35 Urine RBC 0-2 /hpf (0-5) H 01/10/19 03:35 Urine WBC 6-10 /hpf (0-5) 01/10/19 03:35 Ur Epithelial Cells RARE /lpf (FEW) 01/10/19 03:35 Urine Bacteria FEW /hpf (NONE SEEN) 01/10/19 03:35 Ethyl Alcohol 103 mg/dL (0-10) H 01/10/19 03:10 RPR NONREACTIVE (NONREACTIVE) 01/10/19 03:10 - Physical Exam Vitals and I&O: Vital Signs Temp 97.6 F 01/24/19 06:21 Pulse 65 01/24/19 06:21 Resp 20 01/24/19 06:21 BP 142/94 01/24/19 06:21 Pulse Ox 96 01/24/19 06:21 Intake & Output 01/23/19 01/24/19 01/24/19 18:59 06:59 18:59 Intake Total 1070 240 Balance 1070 240 Intake: Oral 1070 240 Other: # Voids 5 2 # Bowel Movements 0 0 Stool Characteristics Formed Formed Formed Active Medications: Current Medications Acetaminophen (Tylenol) 650 mg PO Q4HR PRN PRN Reason: Mild Pain / Temp above 100 Stop: 03/11/19 05:01 Last Admin: 01/23/19 23:59 Dose: 650 mg Al Hydrox/Mg Hydrox/Simethicone (Maalox) 30 ml PO Q4HR PRN PRN Reason: GI DISTRESS Stop: 03/11/19 05:01 Last Admin: 01/19/19 20:44 Dose: 30 ml Ciprofloxacin (Cipro) 500 mg PO BID MILA Stop: 03/13/19 08:59 Last Admin: 01/23/19 17:30 Dose: 500 mg Dextrose (D50w) 50 ml IVP PRN PRN PRN Reason: BS below 70 & not tolerate po Stop: 03/17/19 08:13 Dextrose (Glutose 40%) 18.75 gm PO PRN PRN PRN Reason: BS below 70 & tolerate po Stop: 03/17/19 08:13 Escitalopram Oxalate (Lexapro) 10 mg PO DAILY MILA; Protocol Stop: 03/21/19 08:59 Last Admin: 01/23/19 08:36 Dose: 10 mg Glucagon (Glucagen) 1 mg IM PRN PRN PRN Reason: BS below 70&dextrose ineffecti Stop: 03/17/19 08:13 Insulin Human Lispro (Humalog Insulin Sliding Scale) 0 units SUBQ ACHS MILA; Protocol Stop: 03/17/19 11:29 Last Admin: 01/24/19 06:36 Dose: Not Given Lactobacillus Rhamnosus (Culturelle 15b) 1 each PO DAILY MILA Stop: 03/14/19 15:59 Last Admin: 01/23/19 08:36 Dose: 1 each Lorazepam (Ativan) 0.5 mg PO Q4HR PRN; Protocol PRN Reason: Anxiety Stop: 02/09/19 05:01 Last Admin: 01/23/19 08:36 Dose: 0.5 mg Magnesium Hydroxide (Milk Of Magnesia) 30 ml PO HS PRN PRN Reason: Constipation Stop: 03/13/19 21:16 Last Admin: 01/12/19 21:28 Dose: 30 ml Metformin HCl (Glucophage) 500 mg PO BIDWM MILA Stop: 03/15/19 17:59 Last Admin: 01/23/19 17:36 Dose: 500 mg Miscellaneous (Probiotic Screen) 1 ea MC PRN PRN PRN Reason: PROTOCOL Stop: 03/14/19 15:35 Multivitamins/Vitamin C (Theragran) 1 tab PO DAILY MILA Stop: 03/11/19 08:59 Last Admin: 01/23/19 08:36 Dose: 1 tab Wound Care/Dressing Products (Therahoney) 1 appl TP DAILY MILA Stop: 03/13/19 17:14 Last Admin: 01/23/19 08:37 Dose: 1 appl Zolpidem Tartrate (Ambien) 5 mg PO HS PRN PRN Reason: Insomnia Stop: 03/11/19 05:01 Last Admin: 01/23/19 21:14 Dose: 5 mg General: Alert, No acute distress HEENT: Atraumatic, PERRLA, EOMI Neck: Supple Cardiovascular: Regular rate, Normal S1, Normal S2 Lungs: Clear to auscultation Abdomen: Bowel sounds Extremities: no Clubbing, no Cyanosis Assessment/Plan - Assessment Assessment: psychosis UTI on Cipro PO hypokalemia -- resolved alcohol intoxication HTN elevated .. clonidine added PRN CVA insomnia constipation hyperglycemia ... stable with Metformin - Plan Plan: admit to [facility] start cipro 500mg PO bid K 40meq PO daily will add clonidine 0.1mg PO q8PRN will start Metformin 500mg PO BID Nutritional Asmnt/Malnutr-PDOC - Dietary Evaluation Malnutrition Findings (Please click <Entered> for more info): Nutritional Asmnt/Malnutrition Start: 01/15/19 13: 54 Text: Status: Complete Freq: Protocol: Document 01/15/19 13:54 LCHENG (Rec: 01/15/19 14:04 LCHENG [email or web address]) Nutritional Asmnt/Malnutrition Patient General Information Nutritional Screening Moderate Risk Diagnosis psychosis Pertinent Medical Hx/Surgical Hx HTN, CVA/TIA, stomach surgery d/t ulcers, s/p tracheostomy Subjective Information Pt seen eating in his room, denied any question or concern about current diet/meals. Per EMR, PO intake 100%. Not appropriate to provide diabetic education d/t pt mental status. Current Diet Order/ Nutrition Support soft, NCS, cardiac, ELIF Pertinent Medications culturelle, glucophage, theragran Pertinent Labs 01/13 glucose 237 5/8 K 3.0, Glucose 224, Ca 8.5 , alb 3.6 Nutritional Hx/Data Height 1.73 m Height (Calculated Centimeters) 172.7 Current Weight (lbs) 63.503 kg Weight (Calculated Kilograms) 63.5 Weight (Calculated Grams) 79000.9 [place] Body Weight 154 Body Mass Index (BMI) 21.2 Weight Status Approriate GI Symptoms GI Symptoms None Last BM 01/13 Difficult in: None Skin Integrity/Comment: redness. conrado 15 Current %PO Good (75-100%) Estimated Nutritional Goals BEE in Kcals: Using Current wt Calories/Kcals/Kg 25-30 Kcals Calculated 5462-4107 Protein: Using Current wt Protein g/k Protein Calculated 64 Fluid: ml 1600-1920ml (1ml/kcal) Nutritional Problem 1. Problem Problem altered nutrition related labs Etiology hyperglycemia Signs/Symptoms: glucose 224-237 Malnutrition Alert Is there a minimum of two criteria No selected? Query Text:Check all the applicable criteria. A minimum of two criteria are recommended for diagnosis of either severe or non-severe malnutrition. Malnutrition Related to Morbid Obesity Malnutrition related to morbid obesity No Intervention/Recommendation Comments 1. Continue with soft NCS, cardiac diet as ordered. MD to adjust insulin regimen for optimal glycemic control. 2. Monitor PO intake, wt, labs and skin integrity 3. F/U as low risk in 7 days Expected Outcomes/Goals Expected Outcomes/Goals 1. PO intake to meet at least 75% of nutritional needs. 2. Wt stability, skin to remain intact, labs to approach WNL.
[2019-01-24] MEDS: Multivitamin Tab PO SCH (08:51)
[2019-01-24] MEDS: Therahoney Gel 42.5gm Tube TP SCH (08:51)
[2019-01-24] MEDS: Lactobacillus Rhamnosus GG 15 Billion CFU CAP.SPRINK PO SCH (08:51)
[2019-01-24] MEDS: Escitalopram Oxalate 5 mg Tab PO SCH (08:54)
--- NOTE | 2019-01-24 14:37 | Discharge Summary ---
DATE OF DISCHARGE: 01/24/2019 JUSTIFICATION FOR HOSPITALIZATION: Hypersexual behaviors, unable to be cared for at a lower level. HISTORY OF PRESENT ILLNESS: A 63-year-old male, fully oriented, difficult to understand, inappropriate sexual behaviors, has a restraining order, not making much sense, yelling and screaming. PAST PSYCHIATRIC HISTORY: Unclear. SOCIAL HISTORY: Noted. PROVISIONAL DIAGNOSES: Mood, unspecified; anxiety, unspecified. MEDICAL: Please see full H and P. HOSPITAL COURSE: After initial assessment, the patient was started on medications to address mood symptoms, hypersexual symptoms, poor impulse control. Medications were adjusted and titrated. Over the course of the hospitalization, he was calmer, generally more cooperative. No noted agitation, better sleep, better appetite, no longer hypersexual. Placement confirmed towards the latter end of treatment. CONDITION UPON DISCHARGE: Improved, allowing ADLs. Mood "okay." Affect flat. Thought processes were impoverished. No SI, no HI. No overt psychotic symptoms, better impulse control. PROVISIONAL DIAGNOSES: Mood, unspecified; anxiety, unspecified. MEDICAL: Please see full H and P. PROGNOSIS: The patient follows up with [facility]patient [facility] and remains compliant with treatment. Prognosis will improve, otherwise guarded. [facility]# [id number]
== END 2019-01-24 18:00 | DRG 885 ==
LOC: ER 02:21 → GERO2 04:15 → GERO 01-11 17:35
PROVIDERS: ADMIT Psychiatry & Neurology Psychiatry; ATTEND Psychiatry & Neurology Psychiatry
DX: F39 Unspecified mood [affective] disorder (principal); N39.0 Urinary tract infection, site not specified; F41.9 Anxiety disorder, unspecified; F29 Unspecified psychosis not due to a substance or known physiological condition; E87.6 Hypokalemia; F10.129 Alcohol abuse with intoxication, unspecified; G47.00 Insomnia, unspecified; I10 Essential (primary) hypertension; K59.00 Constipation, unspecified; R73.9 Hyperglycemia, unspecified; Z86.73 Personal history of transient ischemic attack (TIA), and cerebral infarction without residual deficits; Z87.891 Personal history of nicotine dependence; Z72.89 Other problems related to lifestyle
CPT/HCPCS: 36415-UA; 80048-TC; 80053-TC; 80320-TC; 81001-TC; 82550-TC; 82948-90; 83036-90; 84443-TC; 84484-TC; 85025-TC; 86592-TC; 87086-90; 93005; Z7610

== ENCOUNTER 2019-05-15 19:35 | Inpatient (IN) | payer MEDICARE, MEDICAID ==
[2019-05-15 20:01] LABS: % BASOPHILS 0.7 % (0.0-2.0); % EOSINOPHILS 1.4 % (0.0-5.0); % LYMPHOCYTES 24.5 % (20.0-50.0); % MONOCYTES 6.9 % (2.0-10.0); % NEUTROPHILS 66.5 % (40.0-80.0); EOSINOPHILE ABSOLUTE 0.1 Th/cmm (0.1-0.4); HEMATOCRIT 51.4 % (41.0-60); HEMOGLOBIN 17.1 gm/dL (12-16); LYMPHOCYTE ABSOLUTE 1.6 Th/cmm (1.5-3.0); MEAN CORPUSCULAR HEMOGLOBIN 32.6 pg (27.0-31.0); MEAN CORPUSCULAR HGB CONC 33.3 pg (28.0-36.0); MONOCYTE ABSOLUTE 0.5 Th/cmm (0.3-1.0); NEUTROPHILE ABSOLUTE 4.5 Th/cmm (1.8-8.0); PLATELET COUNT 146 Th/cmm (150-400); RED BLOOD COUNT 5.24 Mil/cmm (3.80-5.80); RED CELL DISTRIBUTION WIDTH 12.1 % (11.5-20.0); WHITE BLOOD COUNT 6.7 Th/cmm (4.8-10.8)
[2019-05-15 20:14] LABS: ALB/GLOB RATIO 1.6 (1.0-1.8); ALBUMIN 3.9 gm/dL (4.2-5.5); ALKALINE PHOSPHATASE 86 U/L (34-104); ANION GAP 14.4 (7.0-16.0); BILIRUBIN,TOTAL 2.1 mg/dL (0.3-1.0); BUN - UREA NITROGEN 23 mg/dL (7-25); CALCIUM SERUM 8.8 mg/dL (8.6-10.3); CARBON DIOXIDE 18.8 mEq/L (21.0-31.0); CHLORIDE 107 mEq/L (98-107); CREATININE - SERUM 1.2 mg/dL (0.7-1.3); GFR AFRICAN-AMERICAN > 60.0 ml/min (>90); GFR NON AFRICAN-AMERICAN > 60.0 ml/min; GLUCOSE 190 mg/dL (70-105); POTASSIUM SERUM 3.2 mEq/L (3.5-5.1); SGOT 21 U/L (13-39); SGPT/ALT 17 U/L (7-52); SODIUM SERUM 137 mEq/L (136-145); TOTAL PROTEIN,SERUM 6.4 gm/dL (6.0-8.3)
--- NOTE | 2019-05-15 20:26 | ED Physician Chart ---
ED Chief Complaint/HPI - Patient Information Date Seen:: 05/15/19 Time Seen:: 20:25 Chief Complaint:: Agitation History of Present Illness:: 63 yo male was brought from SNF to ER for evaluation of aggressive behavior, refusing care and yelling. Pt was put on 5150 hold at the facility. On arrival, pt was yelling. He initially refused medical care and subsequently agreed to take pills. Allergies:: Allergies Allergy/AdvReac Type Severity Reaction Status Date / Time No Known Allergies Allergy Verified 01/10/19 04:59 Vitals:: Vital Signs - 8 hr 05/15/19 05/15/19 19:35 20:15 Temp 97.9 F HR 89 90 RR 17 18 BP 163/99 156/100 O2 Sat % 97 97 ED Review of Systems - Review of Systems General/Constitutional: No fever, No chills Skin: No skin lesions Head: No headache Eyes: No pain ENT: No nasal drainage Neck: No neck pain Cardio Vascular: No chest pain Pulmonary: No SOB GI: No nausea, No vomiting Musculoskeletal: Other (Bilateral hand and ankle contracture) Psychiatric: Prior psych history Neurological: Weakness ED Past Medical History - Past Medical History Past Medical History: HTN, CVA/TIA, Other (Scoliosis, dysphagia, hypokalemia) Social History: Non Smoker, No Alcohol, No Drug Use Surgical History: None (Tracheostomy) Psychiatricy History: Depression, Bipolar, Other (Psychosis) Family Medical History - Family Member Mother History Unknown: Yes Ethnicity: ED Physical Exam - Physical Examination General/Constitutional: Awake, Alert Head: Atraumatic Eyes: PERRL, EOMI Skin: No skin lesions ENMT: Nasal exam nl Neck: No nuchal rigidity Respiratory: No Wheeze/Rhonchi/Rales Cardio Vascular: RRR, No murmur, gallop, rubs, NL S1 S2 GI: No tenderness/rebounding/guarding Other Extremities comments:: Bilateral hands contracture, bilateral ankle contracture Neuro/Psych: Alert/oriented ED Labs/Radiology/EKG Results - Lab Results Results: Laboratory Tests 05/15/19 05/15/19 19:55 19:55 WBC 6.7 RBC 5.24 Hgb 17.1 Hct 51.4 MCV 98.0 MCH 32.6 H MCHC Differential 33.3 RDW 12.1 Plt Count 146 L MPV 8.9 Neutrophils % 66.5 Lymphocytes % 24.5 Monocytes % 6.9 Eosinophils % 1.4 Basophils % 0.7 Sodium 137 Potassium 3.2 L Chloride 107 Carbon Dioxide 18.8 L Anion Gap 14.4 BUN 23 Creatinine 1.2 Est GFR ( Amer) > 60.0 Est GFR (Non-Af Amer) > 60.0 BUN/Creatinine Ratio 19.2 Glucose 190 H Calcium 8.8 Total Bilirubin 2.1 H AST 21 ALT 17 Alkaline Phosphatase 86 Total Protein 6.4 Albumin 3.9 L Globulin 2.5 Albumin/Globulin Ratio 1.6 Laboratory Last Values WBC 6.7 Th/cmm (4.8-10.8) 05/15/19 19:55 RBC 5.24 Mil/cmm (3.80-5.80) 05/15/19 19:55 Hgb 17.1 gm/dL (12-16) 05/15/19 19:55 Hct 51.4 % (41.0-60) 05/15/19 19:55 MCV 98.0 fl (80-99) 05/15/19 19:55 MCH 32.6 pg (27.0-31.0) H 05/15/19 19:55 MCHC Differential 33.3 pg (28.0-36.0) 05/15/19 19:55 RDW 12.1 % (11.5-20.0) 05/15/19 19:55 Plt Count 146 Th/cmm (150-400) L 05/15/19 19:55 MPV 8.9 fl 05/15/19 19:55 Neutrophils % 66.5 % (40.0-80.0) 05/15/19 19:55 Lymphocytes % 24.5 % (20.0-50.0) 05/15/19 19:55 Monocytes % 6.9 % (2.0-10.0) 05/15/19 19:55 Eosinophils % 1.4 % (0.0-5.0) 05/15/19 19:55 Basophils % 0.7 % (0.0-2.0) 05/15/19 19:55 Sodium 137 mEq/L (136-145) 05/15/19 19:55 Potassium 3.2 mEq/L (3.5-5.1) L 05/15/19 19:55 Chloride 107 mEq/L (98-107) 05/15/19 19:55 Carbon Dioxide 18.8 mEq/L (21.0-31.0) L 05/15/19 19:55 Anion Gap 14.4 (7.0-16.0) 05/15/19 19:55 BUN 23 mg/dL (7-25) 05/15/19 19:55 Creatinine 1.2 mg/dL (0.7-1.3) 05/15/19 19:55 Est GFR ( Amer) > 60.0 ml/min (>90) 05/15/19 19:55 Est GFR (Non-Af Amer) > 60.0 ml/min 05/15/19 19:55 BUN/Creatinine Ratio 19.2 05/15/19 19:55 Glucose 190 mg/dL (70-105) H 05/15/19 19:55 Calcium 8.8 mg/dL (8.6-10.3) 05/15/19 19:55 Total Bilirubin 2.1 mg/dL (0.3-1.0) H 05/15/19 19:55 AST 21 U/L (13-39) 05/15/19 19:55 ALT 17 U/L (7-52) 05/15/19 19:55 Alkaline Phosphatase 86 U/L (34-104) 05/15/19 19:55 Troponin I 0.03 ng/mL (0.01-0.05) 05/15/19 19:55 B-Natriuretic Peptide 23.4 pg/mL (5.0-100.0) 05/15/19 19:55 Total Protein 6.4 gm/dL (6.0-8.3) 05/15/19 19:55 Albumin 3.9 gm/dL (4.2-5.5) L 05/15/19 19:55 Globulin 2.5 gm/dL 05/15/19 19:55 Albumin/Globulin Ratio 1.6 (1.0-1.8) 05/15/19 19:55 TSH 0.33 uIU/ml (0.34-5.60) L 05/15/19 19:55 Urine Color YELLOW 05/15/19 20:50 Urine Clarity CLOUDY (CLEAR) 05/15/19 20:50 Urine pH 7.0 (4.6 - 8.0) 05/15/19 20:50 Ur Specific [place] 1.025 (1.005-1.030) 05/15/19 20:50 Urine Protein >=300 mg/dL (NEGATIVE) 05/15/19 20:50 Urine Glucose (UA) 100 mg/dL (NEGATIVE) H 05/15/19 20:50 Urine Ketones NEGATIVE mg/dL (NEGATIVE) 05/15/19 20:50 Urine Blood SMALL (NEGATIVE) H 05/15/19 20:50 Urine Nitrate POSITIVE (NEGATIVE) H 05/15/19 20:50 Urine Bilirubin NEGATIVE (NEGATIVE) 05/15/19 20:50 Urine Urobilinogen 1.0 E.U./dL (0.2 - 1.0) 05/15/19 20:50 Ur Leukocyte Esterase TRACE (NEGATIVE) H 05/15/19 20:50 - EKG Interpretations EKG Time:: 19:55 Rate & Rhythm: 103 bpm, sinus tachycardia Comments:: Probable left ventricular hypertrophy ED Assessment - Assessment General Assessment: Urinary tract infection Hypertension Dehydration Hyperthyroidism Hypokalemia 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 Is Septic Shock (SBP<90, OR Lactate>4 mmol\L) present?: No - <6hrs of presentation: Vital Signs: Vital Signs - 8 hr 05/15/19 05/15/19 19:35 20:15 Temp 97.9 F HR 89 90 RR 17 18 BP 163/99 156/100 O2 Sat % 97 97 ED Reassessment (Disposition) - Reassessment Reassessment Condition:: Improved - Patient Disposition Discharge/Transfer:: Medhat w/in this hosp Admitting Medical Physician:: Braulio Ramirez Admitting Psych Physician:: Je Mckinley
[2019-05-15] MEDS ORDERED: Potassium Chloride 20 mEq ER Tab PO ONE ×2 (20:32→20:42)
[2019-05-15 21:18] LABS: URINE SOURCE RANDOM
[2019-05-15 21:21] LABS: URINE BILIRUBIN NEGATIVE (NEGATIVE); URINE BLOOD SMALL (NEGATIVE); URINE COLOR YELLOW; URINE GLUCOSE (UA) 100 mg/dL (NEGATIVE); URINE KETONE NEGATIVE (NEGATIVE); URINE LEUKOCYTE ESTERASE TRACE (NEGATIVE); URINE MICROSCOPIC INDICATED? YES; URINE NITRATE POSITIVE (NEGATIVE); URINE PROTEIN >=300 mg/dL (NEGATIVE)
[2019-05-15 21:25] LABS: URINE CLARITY CLOUDY (CLEAR)
[2019-05-15 21:30] LABS: URINE BACTERIA 4+ /hpf (NONE SEEN); URINE EPITHELIAL CELLS FEW /lpf (FEW); URINE TRIPLE PHOSPHATE CRYSTAL FEW /hpf (FEW)
[2019-05-15] MEDS ORDERED: Sulfamethoxazole/TMP 800/160mg Tab PO ONE (21:32)
[2019-05-15] MEDS ORDERED: Sulfamethoxazole/TMP 800/160mg Tab ONE (21:33)
[2019-05-15 22:41] VITALS: BP 168/107
[2019-05-15] MEDS ORDERED: Maalox 30 mL Cup PO PRN (23:10)
[2019-05-16 07:06] LABS: A1C 6.9 % (4.8-5.6)
[2019-05-16] MEDS: INSULIN LISPRO SLIDING SCALE 100 UNITS/ML UNIT SUBQ SCH ×4 (07:30→19:59)
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
[2019-05-16] MEDS: Multivitamin w/ Minerals Tab PO SCH (09:09)
[2019-05-16] MEDS: Lactobacillus Rhamnosus GG 15 Billion CFU CAP.SPRINK PO SCH (09:09)
[2019-05-16] MEDS: Sulfamethoxazole/TMP 800/160mg Tab PO SCH ×2 (09:10→17:01)
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
[2019-05-17] MEDS: INSULIN LISPRO SLIDING SCALE 100 UNITS/ML UNIT SUBQ SCH ×4 (06:44→20:24)
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
[2019-05-17] MEDS: Sulfamethoxazole/TMP 800/160mg Tab PO SCH ×2 (09:25→17:13)
[2019-05-17] MEDS: Multivitamin w/ Minerals Tab PO SCH (09:25)
[2019-05-17] MEDS: Lactobacillus Rhamnosus GG 15 Billion CFU CAP.SPRINK PO SCH (09:26)
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
[2019-05-18] MEDS: INSULIN LISPRO SLIDING SCALE 100 UNITS/ML UNIT SUBQ SCH ×4 (06:30→20:40)
--- NOTE | 2019-05-18 07:55 | General Progress Note ---
Subjective - Review of Systems Service Date: 05/18/19 Subjective: Awake, alert, no acute distress VS T 97.4 P 72 R 19 BP 133/74 Objective - Results Result Diagrams: 05/15/19 19:55 05/15/19 19:55 Recent Labs: Laboratory Last Values WBC 6.7 Th/cmm (4.8-10.8) 05/15/19 19:55 RBC 5.24 Mil/cmm (3.80-5.80) 05/15/19 19:55 Hgb 17.1 gm/dL (12-16) 05/15/19 19:55 Hct 51.4 % (41.0-60) 05/15/19 19:55 MCV 98.0 fl (80-99) 05/15/19 19:55 MCH 32.6 pg (27.0-31.0) H 05/15/19 19:55 MCHC Differential 33.3 pg (28.0-36.0) 05/15/19 19:55 RDW 12.1 % (11.5-20.0) 05/15/19 19:55 Plt Count 146 Th/cmm (150-400) L 05/15/19 19:55 MPV 8.9 fl 05/15/19 19:55 Neutrophils % 66.5 % (40.0-80.0) 05/15/19 19:55 Lymphocytes % 24.5 % (20.0-50.0) 05/15/19 19:55 Monocytes % 6.9 % (2.0-10.0) 05/15/19 19:55 Eosinophils % 1.4 % (0.0-5.0) 05/15/19 19:55 Basophils % 0.7 % (0.0-2.0) 05/15/19 19:55 Sodium 137 mEq/L (136-145) 05/15/19 19:55 Potassium 3.2 mEq/L (3.5-5.1) L 05/15/19 19:55 Chloride 107 mEq/L (98-107) 05/15/19 19:55 Carbon Dioxide 18.8 mEq/L (21.0-31.0) L 05/15/19 19:55 Anion Gap 14.4 (7.0-16.0) 05/15/19 19:55 BUN 23 mg/dL (7-25) 05/15/19 19:55 Creatinine 1.2 mg/dL (0.7-1.3) 05/15/19 19:55 Est GFR ( Amer) > 60.0 ml/min (>90) 05/15/19 19:55 Est GFR (Non-Af Amer) > 60.0 ml/min 05/15/19 19:55 BUN/Creatinine Ratio 19.2 05/15/19 19:55 Glucose 190 mg/dL (70-105) H 05/15/19 19:55 POC Glucose 147 MG/DL (70 - 105) H 05/16/19 16:55 Calcium 8.8 mg/dL (8.6-10.3) 05/15/19 19:55 Total Bilirubin 2.1 mg/dL (0.3-1.0) H 05/15/19 19:55 AST 21 U/L (13-39) 05/15/19 19:55 ALT 17 U/L (7-52) 05/15/19 19:55 Alkaline Phosphatase 86 U/L (34-104) 05/15/19 19:55 Troponin I 0.03 ng/mL (0.01-0.05) 05/15/19 19:55 B-Natriuretic Peptide 23.4 pg/mL (5.0-100.0) 05/15/19 19:55 Total Protein 6.4 gm/dL (6.0-8.3) 05/15/19 19:55 Albumin 3.9 gm/dL (4.2-5.5) L 05/15/19 19:55 Globulin 2.5 gm/dL 05/15/19 19:55 Albumin/Globulin Ratio 1.6 (1.0-1.8) 05/15/19 19:55 Triglycerides mg/dL (<150) 05/15/19 19:55 Cholesterol mg/dL (<200) 05/15/19 19:55 LDL Cholesterol Direct mg/dL (75-193) 05/15/19 19:55 HDL Cholesterol mg/dL (23-92) 05/15/19 19:55 Free T4 0.85 ng/dL (0.82-1.77) 05/15/19 20:20 TSH 0.33 uIU/ml (0.34-5.60) L 05/15/19 19:55 Urine Source RANDOM 05/15/19 20:50 Urine Color YELLOW 05/15/19 20:50 Urine Clarity CLOUDY (CLEAR) 05/15/19 20:50 Urine pH 7.0 (4.6 - 8.0) 05/15/19 20:50 Ur Specific [place] 1.025 (1.005-1.030) 05/15/19 20:50 Urine Protein >=300 mg/dL (NEGATIVE) 05/15/19 20:50 Urine Glucose (UA) 100 mg/dL (NEGATIVE) H 05/15/19 20:50 Urine Ketones NEGATIVE mg/dL (NEGATIVE) 05/15/19 20:50 Urine Blood SMALL (NEGATIVE) H 05/15/19 20:50 Urine Nitrate POSITIVE (NEGATIVE) H 05/15/19 20:50 Urine Bilirubin NEGATIVE (NEGATIVE) 05/15/19 20:50 Urine Urobilinogen 1.0 E.U./dL (0.2 - 1.0) 05/15/19 20:50 Ur Leukocyte Esterase TRACE (NEGATIVE) H 05/15/19 20:50 Urine RBC 5-10 /hpf (0-5) H 05/15/19 20:50 Urine WBC 6-10 /hpf (0-5) 05/15/19 20:50 Ur Epithelial Cells FEW /lpf (FEW) 05/15/19 20:50 Triple Phos Crystals FEW /hpf (FEW) 05/15/19 20:50 Urine Bacteria 4+ /hpf (NONE SEEN) H 05/15/19 20:50 RPR NONREACTIVE (NONREACTIVE) 05/15/19 19:55 - Physical Exam Vitals and I&O: Vital Signs Temp 97.4 F 05/18/19 06:46 Pulse 72 05/18/19 06:46 Resp 19 05/18/19 06:46 BP 133/74 05/18/19 06:46 Pulse Ox 97 05/18/19 06:46 Intake & Output 05/17/19 05/18/19 05/18/19 18:59 06:59 18:59 Intake Total 800 120 Balance 800 120 Intake: Oral 800 120 Other: # Voids 4 3 # Bowel Movements 1 Active Medications: Current Medications Acetaminophen (Tylenol) 650 mg PO Q4HR PRN PRN Reason: Pain or Fever >101 Stop: 07/14/19 23:09 Last Admin: 05/16/19 13:21 Dose: 650 mg Al Hydrox/Mg Hydrox/Simethicone (Maalox) 30 ml PO Q4H PRN PRN Reason: GI DISTRESS Amlodipine Besylate (Norvasc) 5 mg PO DAILY [facility] Stop: 07/15/19 08:59 Last Admin: 05/17/19 09:26 Dose: Not Given Docusate Sodium (Colace) 100 mg PO QPM [facility] Stop: 07/15/19 16:59 Last Admin: 05/17/19 17:13 Dose: 100 mg Escitalopram Oxalate (Lexapro) 10 mg PO DAILY [facility]; Protocol Stop: 07/15/19 08:59 Last Admin: 05/17/19 09:25 Dose: Not Given Insulin Human Lispro (Humalog Insulin Sliding Scale) 0 units SUBQ ACHS [facility]; Protocol Stop: 07/15/19 07:29 Last Admin: 05/18/19 06:30 Dose: Not Given Lactobacillus Rhamnosus (Culturelle 15b) 1 each PO DAILY [facility] Stop: 07/15/19 08:59 Last Admin: 05/17/19 09:26 Dose: Not Given Lorazepam (Ativan) 0.5 mg PO Q4HR PRN; Protocol PRN Reason: Anxiety Stop: 06/14/19 22:52 Magnesium Hydroxide (Milk Of Magnesia) 30 ml PO Q24H PRN PRN Reason: Constipation Stop: 07/14/19 23:09 Metformin HCl (Glucophage) 500 mg PO TIDWM [facility] Stop: 07/15/19 16:59 Last Admin: 05/17/19 17:14 Dose: 500 mg Mupirocin (Bactroban Oint) 1 appl NS BID [facility] Stop: 05/22/19 09:01 Last Admin: 05/17/19 17:13 Dose: 1 appl Trimethoprim/Sulfamethoxazole (Bactrim Ds) 1 tab PO BID [facility] Stop: 07/15/19 08:59 Last Admin: 05/17/19 17:13 Dose: 1 tab Zolpidem Tartrate (Ambien) 5 mg PO HS PRN PRN Reason: Insomnia Stop: 07/14/19 22:52 General: Alert, No acute distress HEENT: Atraumatic, PERRLA, EOMI Neck: Supple Cardiovascular: Regular rate, Normal S1, Normal S2 Lungs: Clear to auscultation Abdomen: Bowel sounds Extremities: no Clubbing, no Cyanosis Neurological: Normal gait Assessment/Plan - Assessment Assessment: Psychosis UTI hypokalemia Diabetes Mellitus HTN improving Diabetes Mellitus Hyperthyroidism CVA Depression Bipolar disorder dysphagia, oral phase +MRSA nares - Plan Plan: Will admit to [facility] PO Potassium given in ER, repeat K+ this AM On Bactrim DS BID continue home meds bactroban ointment added Nutritional Asmnt/Malnutr-PDOC - Dietary Evaluation Malnutrition Findings (Please click <Entered> for more info): Nutritional Asmnt/Malnutrition Start: 05/16/19 15: 34 Text: Status: Active Freq: Protocol: Document 05/16/19 15:34 [email or web address] (Rec: 05/16/19 15:38 [email or web address]) Nutritional Asmnt/Malnutrition Patient General Information Nutritional Screening Moderate Risk Consult Diagnosis Psychosis Pertinent Medical Hx/Surgical Hx HTN, DM, Hyperthyroidism, CVA, Depression, Bipolar disorder, Psychosis Subjective Information Pt is a 63-year-old male admitted on 05/15 from SNF d/t aggressive behavior, yelling, and refusing care. Pt ate 25% breakfast and 75% lunch today per Meal/Nutrition Activity Record. Will continue to monitor PO intake. Consult related to DM and neck stoma. Recommend to add CCHO to diet Rx for optimal glucose control if levels continue be out of normal limits. Visited Pt later afternoon today, Pt was in his wheelchair out in the [place]. Checked neck stoma, it was healed, noted as possibly from previous tracheostomy. HT: 58 WT: 140 LB (63.64 kg) BMI: 21.29 (Normal) BM: Not Noted I/O: 250/100 (+150) Tam: 17 Diet Order: Mechanical Soft, NCS, ELIF Estimated Energy Needs: ( Geriatric, CBW) 1205-3418 kcals (25-30 kcals/ kg) 64-76g Pro (1.0-1.2 g/kg) 8152-3724 ml (25-30 ml/kg) Current Diet Order/ Nutrition Support Mechanical Soft, NCS, ELIF Pertinent Medications Maalox (PRN), Colace, INS-SS, Culturelle 15b, MOM (PRN), Glucophage Pertinent Labs 05/15: K 3.2, Glucose 190, T Bili 2.1, Alb 3.9 Nutritional Hx/Data Height 1.73 m Height (Calculated Centimeters) 172.7 Current Weight (lbs) 63.503 kg Weight (Calculated Kilograms) 63.5 Weight (Calculated Grams) 32258.9 [place] Body Weight 154 LB (70kg) % [place] Body Weight 91 Body Mass Index (BMI) 21.2 Weight Status Overweight GI Symptoms Skin Integrity/Comment: Tam: 17 Current %PO Fair (50-74%) Estimated Nutritional Goals BEE in Kcals: Using Current wt Calories/Kcals/Kg 25-30 Kcals Calculated 8913-4137 Protein: Using Current wt Protein g/k.0-1.2 Protein Calculated 64-76 Fluid: ml 3218-8528 ml (25-30 ml/kg) Nutritional Problem 1. Problem Problem Altered nutrition related labs Etiology r/t endocrine dysfunction Signs/Symptoms: aeb Hx DM, glucose 190. Malnutrition Related to Morbid Obesity Malnutrition related to morbid obesity No Intervention/Recommendation Comments 1. Continue with Mechanical Soft, NCS, ELIF diet as ordered . 2. [facility] Rx for optimal glucose control if levels continue be out of normal limits. Expected Outcomes/Goals Expected Outcomes/Goals 1. PO intake to meet 75% of nutritional needs. 2. Monitor PO intake, wt, skin integrity, and nutrition related labs to trend WNL. 3. F/U as low risk in 7 days, 05/23
[2019-05-18] MEDS: Multivitamin w/ Minerals Tab PO SCH (08:35)
[2019-05-18] MEDS: Lactobacillus Rhamnosus GG 15 Billion CFU CAP.SPRINK PO SCH (08:35)
[2019-05-18] MEDS: Sulfamethoxazole/TMP 800/160mg Tab PO SCH ×2 (08:35→16:39)
[2019-05-18] MEDS ORDERED: Probiotic Screen MC PRN (11:45)
--- NOTE | 2019-05-18 21:17 | Progress Notes ---
DATE: 05/18/2019 SUBJECTIVE: A 63-year-old male still agitated, can be aggressive, unruly, yelling, escalating today and tangential, talking about the size of some of his medications, still believes that somebody is harassing him, very impulsive, unpredictable, still acting out, lashing out, yelling. ASSESSMENT: The patient remains unruly, ongoing concerns mostly about the safety of others. PLAN: We will continue to monitor. Consider a small dose of Depakote. JOB# [id number]
[2019-05-19] MEDS: INSULIN LISPRO SLIDING SCALE 100 UNITS/ML UNIT SUBQ SCH ×4 (07:30→21:18)
--- NOTE | 2019-05-19 07:59 | General Progress Note ---
Subjective - Review of Systems Service Date: 05/19/19 Subjective: Awake, alert, no acute distress VS T 97.2 P 64 R 20 BP 159/90 Objective - Results Result Diagrams: 05/15/19 19:55 05/15/19 19:55 Recent Labs: Laboratory Last Values WBC 6.7 Th/cmm (4.8-10.8) 05/15/19 19:55 RBC 5.24 Mil/cmm (3.80-5.80) 05/15/19 19:55 Hgb 17.1 gm/dL (12-16) 05/15/19 19:55 Hct 51.4 % (41.0-60) 05/15/19 19:55 MCV 98.0 fl (80-99) 05/15/19 19:55 MCH 32.6 pg (27.0-31.0) H 05/15/19 19:55 MCHC Differential 33.3 pg (28.0-36.0) 05/15/19 19:55 RDW 12.1 % (11.5-20.0) 05/15/19 19:55 Plt Count 146 Th/cmm (150-400) L 05/15/19 19:55 MPV 8.9 fl 05/15/19 19:55 Neutrophils % 66.5 % (40.0-80.0) 05/15/19 19:55 Lymphocytes % 24.5 % (20.0-50.0) 05/15/19 19:55 Monocytes % 6.9 % (2.0-10.0) 05/15/19 19:55 Eosinophils % 1.4 % (0.0-5.0) 05/15/19 19:55 Basophils % 0.7 % (0.0-2.0) 05/15/19 19:55 Sodium 137 mEq/L (136-145) 05/15/19 19:55 Potassium 3.2 mEq/L (3.5-5.1) L 05/15/19 19:55 Chloride 107 mEq/L (98-107) 05/15/19 19:55 Carbon Dioxide 18.8 mEq/L (21.0-31.0) L 05/15/19 19:55 Anion Gap 14.4 (7.0-16.0) 05/15/19 19:55 BUN 23 mg/dL (7-25) 05/15/19 19:55 Creatinine 1.2 mg/dL (0.7-1.3) 05/15/19 19:55 Est GFR ( Amer) > 60.0 ml/min (>90) 05/15/19 19:55 Est GFR (Non-Af Amer) > 60.0 ml/min 05/15/19 19:55 BUN/Creatinine Ratio 19.2 05/15/19 19:55 Glucose 190 mg/dL (70-105) H 05/15/19 19:55 POC Glucose 147 MG/DL (70 - 105) H 05/16/19 16:55 Calcium 8.8 mg/dL (8.6-10.3) 05/15/19 19:55 Total Bilirubin 2.1 mg/dL (0.3-1.0) H 05/15/19 19:55 AST 21 U/L (13-39) 05/15/19 19:55 ALT 17 U/L (7-52) 05/15/19 19:55 Alkaline Phosphatase 86 U/L (34-104) 05/15/19 19:55 Troponin I 0.03 ng/mL (0.01-0.05) 05/15/19 19:55 B-Natriuretic Peptide 23.4 pg/mL (5.0-100.0) 05/15/19 19:55 Total Protein 6.4 gm/dL (6.0-8.3) 05/15/19 19:55 Albumin 3.9 gm/dL (4.2-5.5) L 05/15/19 19:55 Globulin 2.5 gm/dL 05/15/19 19:55 Albumin/Globulin Ratio 1.6 (1.0-1.8) 05/15/19 19:55 Triglycerides mg/dL (<150) 05/15/19 19:55 Cholesterol mg/dL (<200) 05/15/19 19:55 LDL Cholesterol Direct mg/dL (75-193) 05/15/19 19:55 HDL Cholesterol mg/dL (23-92) 05/15/19 19:55 Free T4 0.85 ng/dL (0.82-1.77) 05/15/19 20:20 TSH 0.33 uIU/ml (0.34-5.60) L 05/15/19 19:55 Urine Source RANDOM 05/15/19 20:50 Urine Color YELLOW 05/15/19 20:50 Urine Clarity CLOUDY (CLEAR) 05/15/19 20:50 Urine pH 7.0 (4.6 - 8.0) 05/15/19 20:50 Ur Specific [place] 1.025 (1.005-1.030) 05/15/19 20:50 Urine Protein >=300 mg/dL (NEGATIVE) 05/15/19 20:50 Urine Glucose (UA) 100 mg/dL (NEGATIVE) H 05/15/19 20:50 Urine Ketones NEGATIVE mg/dL (NEGATIVE) 05/15/19 20:50 Urine Blood SMALL (NEGATIVE) H 05/15/19 20:50 Urine Nitrate POSITIVE (NEGATIVE) H 05/15/19 20:50 Urine Bilirubin NEGATIVE (NEGATIVE) 05/15/19 20:50 Urine Urobilinogen 1.0 E.U./dL (0.2 - 1.0) 05/15/19 20:50 Ur Leukocyte Esterase TRACE (NEGATIVE) H 05/15/19 20:50 Urine RBC 5-10 /hpf (0-5) H 05/15/19 20:50 Urine WBC 6-10 /hpf (0-5) 05/15/19 20:50 Ur Epithelial Cells FEW /lpf (FEW) 05/15/19 20:50 Triple Phos Crystals FEW /hpf (FEW) 05/15/19 20:50 Urine Bacteria 4+ /hpf (NONE SEEN) H 05/15/19 20:50 RPR NONREACTIVE (NONREACTIVE) 05/15/19 19:55 - Physical Exam Vitals and I&O: Vital Signs Temp 97.2 F 05/19/19 05:41 Pulse 64 05/19/19 05:41 Resp 20 05/19/19 05:41 BP 159/90 05/19/19 05:41 Pulse Ox 98 05/19/19 05:41 Intake & Output 05/18/19 05/19/19 05/19/19 18:59 06:59 18:59 Intake Total 900 240 Balance 900 240 Intake: Oral 900 240 Other: # Voids 3 2 # Bowel Movements 1 0 Active Medications: Current Medications Acetaminophen (Tylenol) 650 mg PO Q4HR PRN PRN Reason: Pain or Fever >101 Stop: 07/14/19 23:09 Last Admin: 05/16/19 13:21 Dose: 650 mg Al Hydrox/Mg Hydrox/Simethicone (Maalox) 30 ml PO Q4H PRN PRN Reason: GI DISTRESS Amlodipine Besylate (Norvasc) 5 mg PO DAILY [facility] Stop: 07/15/19 08:59 Last Admin: 05/18/19 08:36 Dose: 5 mg Divalproex Sodium (Depakote Dr) 125 mg PO Q12HR [facility]; Protocol Stop: 07/18/19 08:59 Docusate Sodium (Colace) 100 mg PO QPM [facility] Stop: 07/15/19 16:59 Last Admin: 05/18/19 16:39 Dose: 100 mg Escitalopram Oxalate (Lexapro) 10 mg PO DAILY [facility]; Protocol Stop: 07/15/19 08:59 Last Admin: 05/18/19 08:35 Dose: 10 mg Insulin Human Lispro (Humalog Insulin Sliding Scale) 0 units SUBQ ACHS [facility]; Protocol Stop: 07/15/19 07:29 Last Admin: 05/18/19 20:40 Dose: Not Given Lactobacillus Rhamnosus (Culturelle 15b) 1 each PO DAILY [facility] Stop: 07/15/19 08:59 Last Admin: 05/18/19 08:35 Dose: 1 each Levofloxacin (Levaquin) 500 mg PO DAILY [facility] Stop: 05/25/19 09:01 Lorazepam (Ativan) 0.5 mg PO Q4HR PRN; Protocol PRN Reason: Anxiety Stop: 06/14/19 22:52 Magnesium Hydroxide (Milk Of Magnesia) 30 ml PO Q24H PRN PRN Reason: Constipation Stop: 07/14/19 23:09 Metformin HCl (Glucophage) 500 mg PO TIDWM [facility] Stop: 07/15/19 16:59 Last Admin: 05/18/19 16:39 Dose: 500 mg Miscellaneous (Probiotic Screen) 1 ea MC PRN PRN PRN Reason: PROTOCOL Stop: 07/17/19 11:44 Mupirocin (Bactroban Oint) 1 appl NS BID [facility] Stop: 05/22/19 09:01 Last Admin: 05/18/19 16:40 Dose: Not Given Zolpidem Tartrate (Ambien) 5 mg PO HS PRN PRN Reason: Insomnia Stop: 07/14/19 22:52 General: Alert, No acute distress HEENT: Atraumatic, PERRLA, EOMI Neck: Supple Cardiovascular: Regular rate, Normal S1, Normal S2 Lungs: Clear to auscultation Abdomen: Bowel sounds Extremities: no Clubbing, no Cyanosis Neurological: Normal gait Assessment/Plan - Assessment Assessment: Psychosis UTI +Proteus Mirabilis hypokalemia Diabetes Mellitus HTN improving Diabetes Mellitus Hyperthyroidism CVA Depression Bipolar disorder dysphagia, oral phase +MRSA nares - Plan Plan: Will admit to [facility] PO Potassium given in ER, repeat K+ this AM switched to Levoquin 500mg PO daily x 7days continue home meds bactroban ointment added Nutritional Asmnt/Malnutr-PDOC - Dietary Evaluation Malnutrition Findings (Please click <Entered> for more info): Nutritional Asmnt/Malnutrition Start: 05/16/19 15: 34 Text: Status: Active Freq: Protocol: Document 05/16/19 15:34 LENA (Rec: 05/16/19 15:38 LENA [email or web address]) Nutritional Asmnt/Malnutrition Patient General Information Nutritional Screening Moderate Risk Consult Diagnosis Psychosis Pertinent Medical Hx/Surgical Hx HTN, DM, Hyperthyroidism, CVA, Depression, Bipolar disorder, Psychosis Subjective Information Pt is a 63-year-old male admitted on 05/15 from SNF d/t aggressive behavior, yelling, and refusing care. Pt ate 25% breakfast and 75% lunch today per Meal/Nutrition Activity Record. Will continue to monitor PO intake. Consult related to DM and neck stoma. Recommend to add CCHO to diet Rx for optimal glucose control if levels continue be out of normal limits. Visited Pt later afternoon today, Pt was in his wheelchair out in [place]. Checked neck stoma, it was healed, noted as possibly from previous tracheostomy. HT: 58 WT: 140 LB (63.64 kg) BMI: 21.29 (Normal) BM: Not Noted I/O: 250/100 (+150) Tam: 17 Diet Order: Mechanical Soft, NCS, ELIF Estimated Energy Needs: ( Geriatric, CBW) 0844-9634 kcals (25-30 kcals/ kg) 64-76g Pro (1.0-1.2 g/kg) 6666-8175 ml (25-30 ml/kg) Current Diet Order/ Nutrition Support Mechanical Soft, NCS, ELIF Pertinent Medications Maalox (PRN), Colace, INS-SS, Culturelle 15b, MOM (PRN), Glucophage Pertinent Labs 05/15: K 3.2, Glucose 190, T Bili 2.1, Alb 3.9 Nutritional Hx/Data Height 1.73 m Height (Calculated Centimeters) 172.7 Current Weight (lbs) 63.503 kg Weight (Calculated Kilograms) 63.5 Weight (Calculated Grams) 03154.9 [place] Body Weight 154 LB (70kg) % [place] Body Weight 91 Body Mass Index (BMI) 21.2 Weight Status Overweight GI Symptoms Skin Integrity/Comment: Tam: 17 Current %PO Fair (50-74%) Estimated Nutritional Goals BEE in Kcals: Using Current wt Calories/Kcals/Kg 25-30 Kcals Calculated 5493-0513 Protein: Using Current wt Protein g/k.0-1.2 Protein Calculated 64-76 Fluid: ml 0354-8973 ml (25-30 ml/kg) Nutritional Problem 1. Problem Problem Altered nutrition related labs Etiology r/t endocrine dysfunction Signs/Symptoms: aeb Hx DM, glucose 190. Malnutrition Related to Morbid Obesity Malnutrition related to morbid obesity No Intervention/Recommendation Comments 1. Continue with Mechanical Soft, NCS, ELIF diet as ordered . 2. Consider CCHO diet Rx for optimal glucose control if levels continue be out of normal limits. Expected Outcomes/Goals Expected Outcomes/Goals 1. PO intake to meet 75% of nutritional needs. 2. Monitor PO intake, wt, skin integrity, and nutrition related labs to trend WNL. 3. F/U as low risk in 7 days, 05/23
[2019-05-19] MEDS: Multivitamin w/ Minerals Tab PO SCH (09:00)
[2019-05-19] MEDS: Lactobacillus Rhamnosus GG 15 Billion CFU CAP.SPRINK PO SCH (09:00)
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
[2019-05-19] MEDS: Magnesium Hydroxide (MOM) 30 mL UDC PO PRN (23:02)
[2019-05-20] MEDS: INSULIN LISPRO SLIDING SCALE 100 UNITS/ML UNIT SUBQ SCH ×4 (06:34→20:42)
--- NOTE | 2019-05-20 07:46 | General Progress Note ---
Subjective - Review of Systems Service Date: 05/20/19 Subjective: Awake, alert, no acute distress VS T 97.8 P 82 R 20 BP 153/85 Objective - Results Result Diagrams: 05/15/19 19:55 05/15/19 19:55 Recent Labs: Laboratory Last Values WBC 6.7 Th/cmm (4.8-10.8) 05/15/19 19:55 RBC 5.24 Mil/cmm (3.80-5.80) 05/15/19 19:55 Hgb 17.1 gm/dL (12-16) 05/15/19 19:55 Hct 51.4 % (41.0-60) 05/15/19 19:55 MCV 98.0 fl (80-99) 05/15/19 19:55 MCH 32.6 pg (27.0-31.0) H 05/15/19 19:55 MCHC Differential 33.3 pg (28.0-36.0) 05/15/19 19:55 RDW 12.1 % (11.5-20.0) 05/15/19 19:55 Plt Count 146 Th/cmm (150-400) L 05/15/19 19:55 MPV 8.9 fl 05/15/19 19:55 Neutrophils % 66.5 % (40.0-80.0) 05/15/19 19:55 Lymphocytes % 24.5 % (20.0-50.0) 05/15/19 19:55 Monocytes % 6.9 % (2.0-10.0) 05/15/19 19:55 Eosinophils % 1.4 % (0.0-5.0) 05/15/19 19:55 Basophils % 0.7 % (0.0-2.0) 05/15/19 19:55 Sodium 137 mEq/L (136-145) 05/15/19 19:55 Potassium 3.2 mEq/L (3.5-5.1) L 05/15/19 19:55 Chloride 107 mEq/L (98-107) 05/15/19 19:55 Carbon Dioxide 18.8 mEq/L (21.0-31.0) L 05/15/19 19:55 Anion Gap 14.4 (7.0-16.0) 05/15/19 19:55 BUN 23 mg/dL (7-25) 05/15/19 19:55 Creatinine 1.2 mg/dL (0.7-1.3) 05/15/19 19:55 Est GFR ( Amer) > 60.0 ml/min (>90) 05/15/19 19:55 Est GFR (Non-Af Amer) > 60.0 ml/min 05/15/19 19:55 BUN/Creatinine Ratio 19.2 05/15/19 19:55 Glucose 190 mg/dL (70-105) H 05/15/19 19:55 POC Glucose 147 MG/DL (70 - 105) H 05/16/19 16:55 Calcium 8.8 mg/dL (8.6-10.3) 05/15/19 19:55 Total Bilirubin 2.1 mg/dL (0.3-1.0) H 05/15/19 19:55 AST 21 U/L (13-39) 05/15/19 19:55 ALT 17 U/L (7-52) 05/15/19 19:55 Alkaline Phosphatase 86 U/L (34-104) 05/15/19 19:55 Troponin I 0.03 ng/mL (0.01-0.05) 05/15/19 19:55 B-Natriuretic Peptide 23.4 pg/mL (5.0-100.0) 05/15/19 19:55 Total Protein 6.4 gm/dL (6.0-8.3) 05/15/19 19:55 Albumin 3.9 gm/dL (4.2-5.5) L 05/15/19 19:55 Globulin 2.5 gm/dL 05/15/19 19:55 Albumin/Globulin Ratio 1.6 (1.0-1.8) 05/15/19 19:55 Triglycerides mg/dL (<150) 05/15/19 19:55 Cholesterol mg/dL (<200) 05/15/19 19:55 LDL Cholesterol Direct mg/dL (75-193) 05/15/19 19:55 HDL Cholesterol mg/dL (23-92) 05/15/19 19:55 Free T4 0.85 ng/dL (0.82-1.77) 05/15/19 20:20 TSH 0.33 uIU/ml (0.34-5.60) L 05/15/19 19:55 Urine Source RANDOM 05/15/19 20:50 Urine Color YELLOW 05/15/19 20:50 Urine Clarity CLOUDY (CLEAR) 05/15/19 20:50 Urine pH 7.0 (4.6 - 8.0) 05/15/19 20:50 Ur Specific [place] 1.025 (1.005-1.030) 05/15/19 20:50 Urine Protein >=300 mg/dL (NEGATIVE) 05/15/19 20:50 Urine Glucose (UA) 100 mg/dL (NEGATIVE) H 05/15/19 20:50 Urine Ketones NEGATIVE mg/dL (NEGATIVE) 05/15/19 20:50 Urine Blood SMALL (NEGATIVE) H 05/15/19 20:50 Urine Nitrate POSITIVE (NEGATIVE) H 05/15/19 20:50 Urine Bilirubin NEGATIVE (NEGATIVE) 05/15/19 20:50 Urine Urobilinogen 1.0 E.U./dL (0.2 - 1.0) 05/15/19 20:50 Ur Leukocyte Esterase TRACE (NEGATIVE) H 05/15/19 20:50 Urine RBC 5-10 /hpf (0-5) H 05/15/19 20:50 Urine WBC 6-10 /hpf (0-5) 05/15/19 20:50 Ur Epithelial Cells FEW /lpf (FEW) 05/15/19 20:50 Triple Phos Crystals FEW /hpf (FEW) 05/15/19 20:50 Urine Bacteria 4+ /hpf (NONE SEEN) H 05/15/19 20:50 RPR NONREACTIVE (NONREACTIVE) 05/15/19 19:55 - Physical Exam Vitals and I&O: Vital Signs Temp 97.8 F 05/20/19 06:30 Pulse 82 05/20/19 06:30 Resp 20 05/20/19 06:30 BP 153/85 05/20/19 06:30 Pulse Ox 96 05/20/19 06:30 Intake & Output 05/19/19 05/20/19 05/20/19 18:59 06:59 18:59 Intake Total 1320 120 Balance 1320 120 Intake: Oral 1080 120 Other 240 Other: # Voids 4 1 # Bowel Movements 1 Active Medications: Current Medications Acetaminophen (Tylenol) 650 mg PO Q4HR PRN PRN Reason: Pain or Fever >101 Stop: 07/14/19 23:09 Last Admin: 05/16/19 13:21 Dose: 650 mg Al Hydrox/Mg Hydrox/Simethicone (Maalox) 30 ml PO Q4H PRN PRN Reason: GI DISTRESS Amlodipine Besylate (Norvasc) 5 mg PO DAILY [facility] Stop: 07/15/19 08:59 Last Admin: 05/19/19 09:00 Dose: Not Given Divalproex Sodium (Depakote Dr) 125 mg PO Q12HR [facility]; Protocol Stop: 07/18/19 08:59 Last Admin: 05/19/19 21:17 Dose: 125 mg Docusate Sodium (Colace) 100 mg PO QPM [facility] Stop: 07/15/19 16:59 Last Admin: 05/18/19 16:39 Dose: 100 mg Escitalopram Oxalate (Lexapro) 10 mg PO DAILY [facility]; Protocol Stop: 07/15/19 08:59 Last Admin: 05/19/19 09:00 Dose: Not Given Insulin Human Lispro (Humalog Insulin Sliding Scale) 0 units SUBQ ACHS [facility]; Protocol Stop: 07/15/19 07:29 Last Admin: 05/20/19 06:34 Dose: Not Given Lactobacillus Rhamnosus (Culturelle 15b) 1 each PO DAILY [facility] Stop: 07/15/19 08:59 Last Admin: 05/19/19 09:00 Dose: Not Given Levofloxacin (Levaquin) 500 mg PO DAILY [facility] Stop: 05/25/19 09:01 Last Admin: 05/19/19 09:00 Dose: 500 mg Lorazepam (Ativan) 0.5 mg PO Q4HR PRN; Protocol PRN Reason: Anxiety Stop: 06/14/19 22:52 Magnesium Hydroxide (Milk Of Magnesia) 30 ml PO Q24H PRN PRN Reason: Constipation Stop: 07/14/19 23:09 Last Admin: 05/19/19 23:02 Dose: 30 ml Metformin HCl (Glucophage) 500 mg PO TIDWM [facility] Stop: 07/15/19 16:59 Last Admin: 05/19/19 16:46 Dose: Not Given Miscellaneous (Probiotic Screen) 1 ea MC PRN PRN PRN Reason: PROTOCOL Stop: 07/17/19 11:44 Mupirocin (Bactroban Oint) 1 appl NS BID [facility] Stop: 05/22/19 09:01 Last Admin: 05/19/19 09:38 Dose: Not Given Zolpidem Tartrate (Ambien) 5 mg PO HS PRN PRN Reason: Insomnia Stop: 07/14/19 22:52 Last Admin: 05/19/19 21:18 Dose: 5 mg General: Alert, No acute distress HEENT: Atraumatic, PERRLA, EOMI Neck: Supple Cardiovascular: Regular rate, Normal S1, Normal S2 Lungs: Clear to auscultation Abdomen: Bowel sounds Extremities: no Clubbing, no Cyanosis Neurological: Normal gait Assessment/Plan - Assessment Assessment: Psychosis UTI +Proteus Mirabilis hypokalemia Diabetes Mellitus HTN improving Diabetes Mellitus Hyperthyroidism CVA Depression Bipolar disorder dysphagia, oral phase +MRSA nares - Plan Plan: Will admit to [facility] PO Potassium given in ER, repeat K+ this AM switched to Levoquin 500mg PO daily x 7days continue home meds bactroban ointment added Nutritional Asmnt/Malnutr-PDOC - Dietary Evaluation Malnutrition Findings (Please click <Entered> for more info): Nutritional Asmnt/Malnutrition Start: 05/16/19 15: 34 Text: Status: Active Freq: Protocol: Document 05/16/19 15:34 LENA (Rec: 05/16/19 15:38 LENA [email or web address]) Nutritional Asmnt/Malnutrition Patient General Information Nutritional Screening Moderate Risk Consult Diagnosis Psychosis Pertinent Medical Hx/Surgical Hx HTN, DM, Hyperthyroidism, CVA, Depression, Bipolar disorder, Psychosis Subjective Information Pt is a 63-year-old male admitted on 05/15 from SNF d/t aggressive behavior, yelling, and refusing care. Pt ate 25% breakfast and 75% lunch today per Meal/Nutrition Activity Record. Will continue to monitor PO intake. Consult related to DM and neck stoma. Recommend to add CCHO to diet Rx for optimal glucose control if levels continue be out of normal limits. Visited Pt later afternoon today, Pt was in his wheelchair out in the [place]. Checked neck stoma, it was healed, noted as possibly from previous tracheostomy. HT: 58 WT: 140 LB (63.64 kg) BMI: 21.29 (Normal) BM: Not Noted I/O: 250/100 (+150) Tam: 17 Diet Order: Mechanical Soft, NCS, ELIF Estimated Energy Needs: ( Geriatric, CBW) 4604-6808 kcals (25-30 kcals/ kg) 64-76g Pro (1.0-1.2 g/kg) 6108-4465 ml (25-30 ml/kg) Current Diet Order/ Nutrition Support Mechanical Soft, NCS, ELIF Pertinent Medications Maalox (PRN), Colace, INS-SS, Culturelle 15b, MOM (PRN), Glucophage Pertinent Labs 05/15: K 3.2, Glucose 190, T Bili 2.1, Alb 3.9 Nutritional Hx/Data Height 1.73 m Height (Calculated Centimeters) 172.7 Current Weight (lbs) 63.503 kg Weight (Calculated Kilograms) 63.5 Weight (Calculated Grams) 28419.9 [place] Body Weight 154 LB (70kg) % [place] Body Weight 91 Body Mass Index (BMI) 21.2 Weight Status Overweight GI Symptoms Skin Integrity/Comment: Tam: Terrell Current %PO Fair (50-74%) Estimated Nutritional Goals BEE in Kcals: Using Current wt Calories/Kcals/Kg 25-30 Kcals Calculated 5049-4577 Protein: Using Current wt Protein g/k.0-1.2 Protein Calculated 64-76 Fluid: ml 9685-0113 ml (25-30 ml/kg) Nutritional Problem 1. Problem Problem Altered nutrition related labs Etiology r/t endocrine dysfunction Signs/Symptoms: aeb Hx DM, glucose 190. Malnutrition Related to Morbid Obesity Malnutrition related to morbid obesity No Intervention/Recommendation Comments 1. Continue with Mechanical Soft, NCS, ELIF diet as ordered . [facility]. [facility] for [facility] glucose control if levels continue be out of normal limits. Expected Outcomes/Goals Expected Outcomes/Goals 1. PO intake to meet 75% of nutritional needs. 2. Monitor PO intake, wt, skin integrity, and nutrition related labs to trend WNL. 3. F/U as low risk in 7 days, 05/23
[2019-05-20] MEDS: Multivitamin w/ Minerals Tab PO SCH (10:40)
[2019-05-20] MEDS: Lactobacillus Rhamnosus GG 15 Billion CFU CAP.SPRINK PO SCH (10:44)
[2019-05-20] MEDS: Magnesium Hydroxide (MOM) 30 mL UDC PO PRN (13:58)
--- NOTE | 2019-05-21 01:32 | Progress Notes ---
DATE: 05/20/2019 SUBJECTIVE: The patient in the hospital, very aggressive, agitated, does not want to take medications, uncooperative, yelling, preoccupied, believing that we are keeping him here to make money and push medications on him, but the patient has been violent, aggressive towards staff, loud, argumentative. ASSESSMENT: The patient remains symptomatic, refusing care, treatment and medications. ____ may need to be filed. JOB# [id number]
[2019-05-21] MEDS: INSULIN LISPRO SLIDING SCALE 100 UNITS/ML UNIT SUBQ SCH ×4 (06:45→21:09)
--- NOTE | 2019-05-21 08:04 | General Progress Note ---
Subjective - Review of Systems Service Date: 05/21/19 Subjective: Awake, alert, no acute distress VS T 97.1 P 83 R 19 BP 150/98 Objective - Results Result Diagrams: 05/15/19 19:55 05/15/19 19:55 Recent Labs: Laboratory Last Values WBC 6.7 Th/cmm (4.8-10.8) 05/15/19 19:55 RBC 5.24 Mil/cmm (3.80-5.80) 05/15/19 19:55 Hgb 17.1 gm/dL (12-16) 05/15/19 19:55 Hct 51.4 % (41.0-60) 05/15/19 19:55 MCV 98.0 fl (80-99) 05/15/19 19:55 MCH 32.6 pg (27.0-31.0) H 05/15/19 19:55 MCHC Differential 33.3 pg (28.0-36.0) 05/15/19 19:55 RDW 12.1 % (11.5-20.0) 05/15/19 19:55 Plt Count 146 Th/cmm (150-400) L 05/15/19 19:55 MPV 8.9 fl 05/15/19 19:55 Neutrophils % 66.5 % (40.0-80.0) 05/15/19 19:55 Lymphocytes % 24.5 % (20.0-50.0) 05/15/19 19:55 Monocytes % 6.9 % (2.0-10.0) 05/15/19 19:55 Eosinophils % 1.4 % (0.0-5.0) 05/15/19 19:55 Basophils % 0.7 % (0.0-2.0) 05/15/19 19:55 Sodium 137 mEq/L (136-145) 05/15/19 19:55 Potassium 3.2 mEq/L (3.5-5.1) L 05/15/19 19:55 Chloride 107 mEq/L (98-107) 05/15/19 19:55 Carbon Dioxide 18.8 mEq/L (21.0-31.0) L 05/15/19 19:55 Anion Gap 14.4 (7.0-16.0) 05/15/19 19:55 BUN 23 mg/dL (7-25) 05/15/19 19:55 Creatinine 1.2 mg/dL (0.7-1.3) 05/15/19 19:55 Est GFR ( Amer) > 60.0 ml/min (>90) 05/15/19 19:55 Est GFR (Non-Af Amer) > 60.0 ml/min 05/15/19 19:55 BUN/Creatinine Ratio 19.2 05/15/19 19:55 Glucose 190 mg/dL (70-105) H 05/15/19 19:55 POC Glucose 147 MG/DL (70 - 105) H 05/16/19 16:55 Calcium 8.8 mg/dL (8.6-10.3) 05/15/19 19:55 Total Bilirubin 2.1 mg/dL (0.3-1.0) H 05/15/19 19:55 AST 21 U/L (13-39) 05/15/19 19:55 ALT 17 U/L (7-52) 05/15/19 19:55 Alkaline Phosphatase 86 U/L (34-104) 05/15/19 19:55 Troponin I 0.03 ng/mL (0.01-0.05) 05/15/19 19:55 B-Natriuretic Peptide 23.4 pg/mL (5.0-100.0) 05/15/19 19:55 Total Protein 6.4 gm/dL (6.0-8.3) 05/15/19 19:55 Albumin 3.9 gm/dL (4.2-5.5) L 05/15/19 19:55 Globulin 2.5 gm/dL 05/15/19 19:55 Albumin/Globulin Ratio 1.6 (1.0-1.8) 05/15/19 19:55 Triglycerides mg/dL (<150) 05/15/19 19:55 Cholesterol mg/dL (<200) 05/15/19 19:55 LDL Cholesterol Direct mg/dL (75-193) 05/15/19 19:55 HDL Cholesterol mg/dL (23-92) 05/15/19 19:55 Free T4 0.85 ng/dL (0.82-1.77) 05/15/19 20:20 TSH 0.33 uIU/ml (0.34-5.60) L 05/15/19 19:55 Urine Source RANDOM 05/15/19 20:50 Urine Color YELLOW 05/15/19 20:50 Urine Clarity CLOUDY (CLEAR) 05/15/19 20:50 Urine pH 7.0 (4.6 - 8.0) 05/15/19 20:50 Ur Specific [place] 1.025 (1.005-1.030) 05/15/19 20:50 Urine Protein >=300 mg/dL (NEGATIVE) 05/15/19 20:50 Urine Glucose (UA) 100 mg/dL (NEGATIVE) H 05/15/19 20:50 Urine Ketones NEGATIVE mg/dL (NEGATIVE) 05/15/19 20:50 Urine Blood SMALL (NEGATIVE) H 05/15/19 20:50 Urine Nitrate POSITIVE (NEGATIVE) H 05/15/19 20:50 Urine Bilirubin NEGATIVE (NEGATIVE) 05/15/19 20:50 Urine Urobilinogen 1.0 E.U./dL (0.2 - 1.0) 05/15/19 20:50 Ur Leukocyte Esterase TRACE (NEGATIVE) H 05/15/19 20:50 Urine RBC 5-10 /hpf (0-5) H 05/15/19 20:50 Urine WBC 6-10 /hpf (0-5) 05/15/19 20:50 Ur Epithelial Cells FEW /lpf (FEW) 05/15/19 20:50 Triple Phos Crystals FEW /hpf (FEW) 05/15/19 20:50 Urine Bacteria 4+ /hpf (NONE SEEN) H 05/15/19 20:50 RPR NONREACTIVE (NONREACTIVE) 05/15/19 19:55 - Physical Exam Vitals and I&O: Vital Signs Temp 97.1 F 05/21/19 06:37 Pulse 83 05/21/19 06:37 Resp 19 05/21/19 06:37 BP 150/98 05/21/19 06:37 Pulse Ox 98 05/21/19 06:37 Intake & Output 05/20/19 05/21/19 05/21/19 18:59 06:59 18:59 Intake Total 1000 240 Balance 1000 240 Intake: Oral 1000 240 Other: # Voids 4 2 # Bowel Movements 0 0 Active Medications: Current Medications Acetaminophen (Tylenol) 650 mg PO Q4HR PRN PRN Reason: Pain or Fever >101 Stop: 07/14/19 23:09 Last Admin: 05/16/19 13:21 Dose: 650 mg Al Hydrox/Mg Hydrox/Simethicone (Maalox) 30 ml PO Q4H PRN PRN Reason: GI DISTRESS Amlodipine Besylate (Norvasc) 5 mg PO DAILY [facility] Stop: 07/15/19 08:59 Last Admin: 05/20/19 10:41 Dose: 5 mg Divalproex Sodium (Depakote Dr) 125 mg PO Q12HR [facility]; Protocol Stop: 07/18/19 08:59 Last Admin: 05/20/19 21:05 Dose: Not Given Docusate Sodium (Colace) 100 mg PO QPM [facility] Stop: 07/15/19 16:59 Last Admin: 05/20/19 18:54 Dose: 100 mg Escitalopram Oxalate (Lexapro) 10 mg PO DAILY [facility]; Protocol Stop: 07/15/19 08:59 Last Admin: 05/20/19 10:45 Dose: Not Given Insulin Human Lispro (Humalog Insulin Sliding Scale) 0 units SUBQ ACHS [facility]; Protocol Stop: 07/15/19 07:29 Last Admin: 05/21/19 06:45 Dose: Not Given Lactobacillus Rhamnosus (Culturelle 15b) 1 each PO DAILY [facility] Stop: 07/15/19 08:59 Last Admin: 05/20/19 10:44 Dose: Not Given Levofloxacin (Levaquin) 500 mg PO DAILY [facility] Stop: 05/25/19 09:01 Last Admin: 05/20/19 10:40 Dose: 500 mg Lorazepam (Ativan) 0.5 mg PO Q4HR PRN; Protocol PRN Reason: Anxiety Stop: 06/14/19 22:52 Magnesium Hydroxide (Milk Of Magnesia) 30 ml PO Q24H PRN PRN Reason: Constipation Stop: 07/14/19 23:09 Last Admin: 05/20/19 13:58 Dose: 30 ml Metformin HCl (Glucophage) 500 mg PO TIDWM [facility] Stop: 07/15/19 16:59 Last Admin: 05/20/19 18:56 Dose: Not Given Miscellaneous (Probiotic Screen) 1 ea MC PRN PRN PRN Reason: PROTOCOL Stop: 07/17/19 11:44 Mupirocin (Bactroban Oint) 1 appl NS BID [facility] Stop: 05/22/19 09:01 Last Admin: 05/20/19 18:52 Dose: Not Given Zolpidem Tartrate (Ambien) 5 mg PO HS PRN PRN Reason: Insomnia Stop: 07/14/19 22:52 Last Admin: 05/19/19 21:18 Dose: 5 mg General: Alert, No acute distress HEENT: Atraumatic, PERRLA, EOMI Neck: Supple Cardiovascular: Regular rate, Normal S1, Normal S2 Lungs: Clear to auscultation Abdomen: Bowel sounds Extremities: no Clubbing, no Cyanosis Neurological: Normal gait Assessment/Plan - Assessment Assessment: Psychosis UTI +Proteus Mirabilis hypokalemia Diabetes Mellitus HTN elevated Diabetes Mellitus Hyperthyroidism CVA Depression Bipolar disorder dysphagia, oral phase +MRSA nares - Plan Plan: Will admit to [facility] PO Potassium given in ER, repeat K+ this AM switched to Levoquin 500mg PO daily x 7days continue home meds bactroban ointment added will add clonidine PO Nutritional Asmnt/Malnutr-PDOC - Dietary Evaluation Malnutrition Findings (Please click <Entered> for more info): Nutritional Asmnt/Malnutrition Start: 05/16/19 15: 34 Text: Status: Active Freq: Protocol: Document 05/16/19 15:34 LENA (Rec: 05/16/19 15:38 LENA [email or web address]) Nutritional Asmnt/Malnutrition Patient General Information Nutritional Screening Moderate Risk Consult Diagnosis Psychosis Pertinent Medical Hx/Surgical Hx HTN, DM, Hyperthyroidism, CVA, Depression, Bipolar disorder, Psychosis Subjective Information Pt is a 63-year-old male admitted on 05/15 from SNF d/t aggressive behavior, yelling, and refusing care. Pt ate 25% breakfast and 75% lunch today per Meal/Nutrition Activity Record. Will continue to monitor PO intake. Consult related to DM and neck stoma. Recommend to add CCHO to diet Rx for optimal glucose control if levels continue be out of normal limits. Visited Pt later afternoon today, Pt was in his wheelchair out in the [place]. Checked neck stoma, it was healed, noted as possibly from previous tracheostomy. HT: 58 WT: 140 LB (63.64 kg) BMI: 21.29 (Normal) BM: Not Noted I/O: 250/100 (+150) Tam: 17 Diet Order: Mechanical Soft, NCS, ELIF Estimated Energy Needs: ( Geriatric, CBW) 5727-9830 kcals (25-30 kcals/ kg) 64-76g Pro (1.0-1.2 g/kg) 3273-7269 ml (25-30 ml/kg) Current Diet Order/ Nutrition Support Mechanical Soft, NCS, ELIF Pertinent Medications Maalox (PRN), Colace, INS-SS, Culturelle 15b, MOM (PRN), Glucophage Pertinent Labs 05/15: K 3.2, Glucose 190, T Bili 2.1, Alb 3.9 Nutritional Hx/Data Height 1.73 m Height (Calculated Centimeters) 172.7 Current Weight (lbs) 63.503 kg Weight (Calculated Kilograms) 63.5 Weight (Calculated Grams) 92329.9 [place] Body Weight 154 LB (70kg) % [place] Body Weight 91 Body Mass Index (BMI) 21.2 Weight Status Overweight GI Symptoms Skin Integrity/Comment: Tam: Terrell Current %PO Fair (50-74%) Estimated Nutritional Goals BEE in Kcals: Using Current wt Calories/Kcals/Kg 25-30 Kcals Calculated 1941-0151 Protein: Using Current wt Protein g/k.0-1.2 Protein Calculated 64-76 Fluid: ml 3196-3569 ml (25-30 ml/kg) Nutritional Problem 1. Problem Problem Altered nutrition related labs Etiology r/t endocrine dysfunction Signs/Symptoms: aeb Hx DM, glucose 190. Malnutrition Related to Morbid Obesity Malnutrition related to morbid obesity No Intervention/Recommendation Comments 1. Continue with Mechanical Soft, NCS, ELIF diet as ordered . 2. [facility] for optimal glucose control if levels continue be out of normal limits. Expected Outcomes/Goals Expected Outcomes/Goals 1. PO intake to meet 75% of nutritional needs. 2. Monitor PO intake, wt, skin integrity, and nutrition related labs to trend WNL. 3. F/U as low risk in 7 days, 05/23
[2019-05-21] MEDS: Lactobacillus Rhamnosus GG 15 Billion CFU CAP.SPRINK PO SCH ×2 (08:36→08:48)
[2019-05-21] MEDS: Multivitamin w/ Minerals Tab PO SCH ×2 (08:36→08:47)
--- NOTE | 2019-05-21 23:13 | Progress Notes ---
DATE: 05/21/2019 SUBJECTIVE: The patient remains aggressive, still agitated at times, yelling, confused, very difficult to understand him. Still wheeling his wheelchair around, agitated towards staff, refusing treatment, refusing medications, tangential, hard to follow his thought processes. A [place] petition may need to be filed. We will continue to encourage better med compliance. JOB# [id number]
[2019-05-22] MEDS: INSULIN LISPRO SLIDING SCALE 100 UNITS/ML UNIT SUBQ SCH ×4 (06:37→20:58)
--- NOTE | 2019-05-22 07:54 | General Progress Note ---
Subjective - Review of Systems Service Date: 05/22/19 Subjective: Awake, alert, no acute distress VS T 96.8 P 76 R 20 BP 153/83 Objective - Results Result Diagrams: 05/15/19 19:55 05/15/19 19:55 Recent Labs: Laboratory Last Values WBC 6.7 Th/cmm (4.8-10.8) 05/15/19 19:55 RBC 5.24 Mil/cmm (3.80-5.80) 05/15/19 19:55 Hgb 17.1 gm/dL (12-16) 05/15/19 19:55 Hct 51.4 % (41.0-60) 05/15/19 19:55 MCV 98.0 fl (80-99) 05/15/19 19:55 MCH 32.6 pg (27.0-31.0) H 05/15/19 19:55 MCHC Differential 33.3 pg (28.0-36.0) 05/15/19 19:55 RDW 12.1 % (11.5-20.0) 05/15/19 19:55 Plt Count 146 Th/cmm (150-400) L 05/15/19 19:55 MPV 8.9 fl 05/15/19 19:55 Neutrophils % 66.5 % (40.0-80.0) 05/15/19 19:55 Lymphocytes % 24.5 % (20.0-50.0) 05/15/19 19:55 Monocytes % 6.9 % (2.0-10.0) 05/15/19 19:55 Eosinophils % 1.4 % (0.0-5.0) 05/15/19 19:55 Basophils % 0.7 % (0.0-2.0) 05/15/19 19:55 Sodium 137 mEq/L (136-145) 05/15/19 19:55 Potassium 3.2 mEq/L (3.5-5.1) L 05/15/19 19:55 Chloride 107 mEq/L (98-107) 05/15/19 19:55 Carbon Dioxide 18.8 mEq/L (21.0-31.0) L 05/15/19 19:55 Anion Gap 14.4 (7.0-16.0) 05/15/19 19:55 BUN 23 mg/dL (7-25) 05/15/19 19:55 Creatinine 1.2 mg/dL (0.7-1.3) 05/15/19 19:55 Est GFR ( Amer) > 60.0 ml/min (>90) 05/15/19 19:55 Est GFR (Non-Af Amer) > 60.0 ml/min 05/15/19 19:55 BUN/Creatinine Ratio 19.2 05/15/19 19:55 Glucose 190 mg/dL (70-105) H 05/15/19 19:55 POC Glucose 147 MG/DL (70 - 105) H 05/16/19 16:55 Calcium 8.8 mg/dL (8.6-10.3) 05/15/19 19:55 Total Bilirubin 2.1 mg/dL (0.3-1.0) H 05/15/19 19:55 AST 21 U/L (13-39) 05/15/19 19:55 ALT 17 U/L (7-52) 05/15/19 19:55 Alkaline Phosphatase 86 U/L (34-104) 05/15/19 19:55 Troponin I 0.03 ng/mL (0.01-0.05) 05/15/19 19:55 B-Natriuretic Peptide 23.4 pg/mL (5.0-100.0) 05/15/19 19:55 Total Protein 6.4 gm/dL (6.0-8.3) 05/15/19 19:55 Albumin 3.9 gm/dL (4.2-5.5) L 05/15/19 19:55 Globulin 2.5 gm/dL 05/15/19 19:55 Albumin/Globulin Ratio 1.6 (1.0-1.8) 05/15/19 19:55 Triglycerides mg/dL (<150) 05/15/19 19:55 Cholesterol mg/dL (<200) 05/15/19 19:55 LDL Cholesterol Direct mg/dL (75-193) 05/15/19 19:55 HDL Cholesterol mg/dL (23-92) 05/15/19 19:55 Free T4 0.85 ng/dL (0.82-1.77) 05/15/19 20:20 TSH 0.33 uIU/ml (0.34-5.60) L 05/15/19 19:55 Urine Source RANDOM 05/15/19 20:50 Urine Color YELLOW 05/15/19 20:50 Urine Clarity CLOUDY (CLEAR) 05/15/19 20:50 Urine pH 7.0 (4.6 - 8.0) 05/15/19 20:50 Ur Specific [place] 1.025 (1.005-1.030) 05/15/19 20:50 Urine Protein >=300 mg/dL (NEGATIVE) 05/15/19 20:50 Urine Glucose (UA) 100 mg/dL (NEGATIVE) H 05/15/19 20:50 Urine Ketones NEGATIVE mg/dL (NEGATIVE) 05/15/19 20:50 Urine Blood SMALL (NEGATIVE) H 05/15/19 20:50 Urine Nitrate POSITIVE (NEGATIVE) H 05/15/19 20:50 Urine Bilirubin NEGATIVE (NEGATIVE) 05/15/19 20:50 Urine Urobilinogen 1.0 E.U./dL (0.2 - 1.0) 05/15/19 20:50 Ur Leukocyte Esterase TRACE (NEGATIVE) H 05/15/19 20:50 Urine RBC 5-10 /hpf (0-5) H 05/15/19 20:50 Urine WBC 6-10 /hpf (0-5) 05/15/19 20:50 Ur Epithelial Cells FEW /lpf (FEW) 05/15/19 20:50 Triple Phos Crystals FEW /hpf (FEW) 05/15/19 20:50 Urine Bacteria 4+ /hpf (NONE SEEN) H 05/15/19 20:50 RPR NONREACTIVE (NONREACTIVE) 05/15/19 19:55 - Physical Exam Vitals and I&O: Vital Signs Temp 96.8 F 05/22/19 06:00 Pulse 76 05/22/19 06:00 Resp 20 05/22/19 06:00 BP 153/83 05/22/19 06:00 Pulse Ox 97 05/22/19 06:00 Intake & Output 05/21/19 05/22/19 05/22/19 18:59 06:59 18:59 Intake Total 240 Balance 240 Weight (lbs) 63.503 kg Intake: Oral 240 Other: # Voids 3 3 # Bowel Movements 1 0 Weight Source Bedscale Active Medications: Current Medications Acetaminophen (Tylenol) 650 mg PO Q4HR PRN PRN Reason: Pain or Fever >101 Stop: 07/14/19 23:09 Last Admin: 05/16/19 13:21 Dose: 650 mg Al Hydrox/Mg Hydrox/Simethicone (Maalox) 30 ml PO Q4H PRN PRN Reason: GI DISTRESS Amlodipine Besylate (Norvasc) 5 mg PO DAILY [facility] Stop: 07/15/19 08:59 Last Admin: 05/21/19 08:48 Dose: 5 mg Divalproex Sodium (Depakote Dr) 125 mg PO Q12HR [facility]; Protocol Stop: 07/18/19 08:59 Last Admin: 05/21/19 21:06 Dose: 125 mg Docusate Sodium (Colace) 100 mg PO QPM [facility] Stop: 07/15/19 16:59 Last Admin: 05/21/19 16:32 Dose: Not Given Escitalopram Oxalate (Lexapro) 10 mg PO DAILY [facility]; Protocol Stop: 07/15/19 08:59 Last Admin: 05/21/19 08:48 Dose: Not Given Insulin Human Lispro (Humalog Insulin Sliding Scale) 0 units SUBQ ACHS [facility]; Protocol Stop: 07/15/19 07:29 Last Admin: 05/22/19 06:37 Dose: Not Given Lactobacillus Rhamnosus (Culturelle 15b) 1 each PO DAILY [facility] Stop: 07/15/19 08:59 Last Admin: 05/21/19 08:48 Dose: Not Given Levofloxacin (Levaquin) 500 mg PO DAILY [facility] Stop: 05/25/19 09:01 Last Admin: 05/21/19 08:47 Dose: Not Given Lorazepam (Ativan) 0.5 mg PO Q4HR PRN; Protocol PRN Reason: Anxiety Stop: 06/14/19 22:52 Magnesium Hydroxide (Milk Of Magnesia) 30 ml PO Q24H PRN PRN Reason: Constipation Stop: 07/14/19 23:09 Last Admin: 05/20/19 13:58 Dose: 30 ml Metformin HCl (Glucophage) 500 mg PO TIDWM [facility] Stop: 07/15/19 16:59 Last Admin: 05/21/19 16:32 Dose: Not Given Miscellaneous (Probiotic Screen) 1 ea MC PRN PRN PRN Reason: PROTOCOL Stop: 07/17/19 11:44 Mupirocin (Bactroban Oint) 1 appl NS BID [facility] Stop: 05/22/19 09:01 Last Admin: 05/21/19 16:32 Dose: Not Given Zolpidem Tartrate (Ambien) 5 mg PO HS PRN PRN Reason: Insomnia Stop: 07/14/19 22:52 Last Admin: 05/19/19 21:18 Dose: 5 mg General: Alert, No acute distress HEENT: Atraumatic, PERRLA, EOMI Neck: Supple Cardiovascular: Regular rate, Normal S1, Normal S2 Lungs: Clear to auscultation Abdomen: Bowel sounds Extremities: no Clubbing, no Cyanosis Neurological: Normal gait Assessment/Plan - Assessment Assessment: Psychosis UTI +Proteus Mirabilis hypokalemia Diabetes Mellitus HTN elevated Diabetes Mellitus Hyperthyroidism CVA Depression Bipolar disorder dysphagia, oral phase +MRSA nares - Plan Plan: Will admit to [facility] PO Potassium given in ER, repeat K+ this AM switched to Levoquin 500mg PO daily x 7days continue home meds bactroban ointment added will add clonidine PO PRN Nutritional Asmnt/Malnutr-PDOC - Dietary Evaluation Malnutrition Findings (Please click <Entered> for more info): Nutritional Asmnt/Malnutrition Start: 05/16/19 15: 34 Text: Status: Active Freq: Protocol: Document 05/16/19 15:34 LENA (Rec: 05/16/19 15:38 LENA [email or web address]) Nutritional Asmnt/Malnutrition Patient General Information Nutritional Screening Moderate Risk Consult Diagnosis Psychosis Pertinent Medical Hx/Surgical Hx HTN, DM, Hyperthyroidism, CVA, Depression, Bipolar disorder, Psychosis Subjective Information Pt is a 63-year-old male admitted on 05/15 from SNF d/t aggressive behavior, yelling, and refusing care. Pt ate 25% breakfast and 75% lunch today per Meal/Nutrition Activity Record. Will continue to monitor PO intake. Consult related to DM and neck stoma. Recommend to add CCHO to diet Rx for optimal glucose control if levels continue be out of normal limits. Visited Pt later afternoon today, Pt was in his wheelchair out in the [place]. Checked neck stoma, it was healed, noted as possibly from previous tracheostomy. HT: 58 WT: 140 LB (63.64 kg) BMI: 21.29 (Normal) BM: Not Noted I/O: 250/100 (+150) Tam: 17 Diet Order: Mechanical Soft, NCS, ELIF Estimated Energy Needs: ( Geriatric, CBW) 6487-8949 kcals (25-30 kcals/ kg) 64-76g Pro (1.0-1.2 g/kg) 3274-8490 ml (25-30 ml/kg) Current Diet Order/ Nutrition Support Mechanical Soft, NCS, ELIF Pertinent Medications Maalox (PRN), Colace, INS-SS, Culturelle 15b, MOM (PRN), Glucophage Pertinent Labs 05/15: K 3.2, Glucose 190, T Bili 2.1, Alb 3.9 Nutritional Hx/Data Height 1.73 m Height (Calculated Centimeters) 172.7 Current Weight (lbs) 63.503 kg Weight (Calculated Kilograms) 63.5 Weight (Calculated Grams) 19875.9 [place] Body Weight 154 LB (70kg) % [place] Body Weight 91 Body Mass Index (BMI) 21.2 Weight Status Overweight GI Symptoms Skin Integrity/Comment: Tam: [place] Current %PO Fair (50-74%) Estimated Nutritional Goals BEE in Kcals: Using Current wt Calories/Kcals/Kg 25-30 Kcals Calculated 9402-1648 Protein: Using Current wt Protein g/k.0-1.2 Protein Calculated 64-76 Fluid: ml 0584-7132 ml (25-30 ml/kg) Nutritional Problem 1. Problem Problem Altered nutrition related labs Etiology r/t endocrine dysfunction Signs/Symptoms: aeb Hx DM, glucose 190. Malnutrition Related to Morbid Obesity Malnutrition related to morbid obesity No Intervention/Recommendation Comments 1. Continue with Mechanical Soft, NCS, ELIF diet as ordered . [facility]. [facility] for optimal glucose control if levels continue be out of normal limits. Expected Outcomes/Goals Expected Outcomes/Goals 1. PO intake to meet 75% of nutritional needs. 2. Monitor PO intake, wt, skin integrity, and nutrition related labs to trend WNL. 3. F/U as low risk in 7 days, 05/23
[2019-05-22] MEDS: Lactobacillus Rhamnosus GG 15 Billion CFU CAP.SPRINK PO SCH (09:09)
[2019-05-22] MEDS: Multivitamin w/ Minerals Tab PO SCH (09:09)
--- NOTE | 2019-05-23 01:51 | Progress Notes ---
DATE: 05/22/2019 SUBJECTIVE: The patient is less agitated, less irritable, but does not want to take medications for psych issues. No behavioral outbursts, seems to be more cooperative; although, he is easily agitated at times, irritable. [place] petition may need to be filed. He is still very impulsive, unpredictable, really not making much sense. PLAN: We will continue to encourage better med compliance. [facility]# [id number]
[2019-05-23] MEDS: INSULIN LISPRO SLIDING SCALE 100 UNITS/ML UNIT SUBQ SCH ×4 (06:48→21:54)
--- NOTE | 2019-05-23 08:02 | General Progress Note ---
Subjective - Review of Systems Service Date: 05/23/19 Subjective: Awake, alert, no acute distress VS T 97.6 P 65 R 18 BP 157/94 Objective - Results Result Diagrams: 05/15/19 19:55 05/15/19 19:55 Recent Labs: Laboratory Last Values WBC 6.7 Th/cmm (4.8-10.8) 05/15/19 19:55 RBC 5.24 Mil/cmm (3.80-5.80) 05/15/19 19:55 Hgb 17.1 gm/dL (12-16) 05/15/19 19:55 Hct 51.4 % (41.0-60) 05/15/19 19:55 MCV 98.0 fl (80-99) 05/15/19 19:55 MCH 32.6 pg (27.0-31.0) H 05/15/19 19:55 MCHC Differential 33.3 pg (28.0-36.0) 05/15/19 19:55 RDW 12.1 % (11.5-20.0) 05/15/19 19:55 Plt Count 146 Th/cmm (150-400) L 05/15/19 19:55 MPV 8.9 fl 05/15/19 19:55 Neutrophils % 66.5 % (40.0-80.0) 05/15/19 19:55 Lymphocytes % 24.5 % (20.0-50.0) 05/15/19 19:55 Monocytes % 6.9 % (2.0-10.0) 05/15/19 19:55 Eosinophils % 1.4 % (0.0-5.0) 05/15/19 19:55 Basophils % 0.7 % (0.0-2.0) 05/15/19 19:55 Sodium 137 mEq/L (136-145) 05/15/19 19:55 Potassium 3.2 mEq/L (3.5-5.1) L 05/15/19 19:55 Chloride 107 mEq/L (98-107) 05/15/19 19:55 Carbon Dioxide 18.8 mEq/L (21.0-31.0) L 05/15/19 19:55 Anion Gap 14.4 (7.0-16.0) 05/15/19 19:55 BUN 23 mg/dL (7-25) 05/15/19 19:55 Creatinine 1.2 mg/dL (0.7-1.3) 05/15/19 19:55 Est GFR ( Amer) > 60.0 ml/min (>90) 05/15/19 19:55 Est GFR (Non-Af Amer) > 60.0 ml/min 05/15/19 19:55 BUN/Creatinine Ratio 19.2 05/15/19 19:55 Glucose 190 mg/dL (70-105) H 05/15/19 19:55 POC Glucose 147 MG/DL (70 - 105) H 05/16/19 16:55 Calcium 8.8 mg/dL (8.6-10.3) 05/15/19 19:55 Total Bilirubin 2.1 mg/dL (0.3-1.0) H 05/15/19 19:55 AST 21 U/L (13-39) 05/15/19 19:55 ALT 17 U/L (7-52) 05/15/19 19:55 Alkaline Phosphatase 86 U/L (34-104) 05/15/19 19:55 Troponin I 0.03 ng/mL (0.01-0.05) 05/15/19 19:55 B-Natriuretic Peptide 23.4 pg/mL (5.0-100.0) 05/15/19 19:55 Total Protein 6.4 gm/dL (6.0-8.3) 05/15/19 19:55 Albumin 3.9 gm/dL (4.2-5.5) L 05/15/19 19:55 Globulin 2.5 gm/dL 05/15/19 19:55 Albumin/Globulin Ratio 1.6 (1.0-1.8) 05/15/19 19:55 Triglycerides mg/dL (<150) 05/15/19 19:55 Cholesterol mg/dL (<200) 05/15/19 19:55 LDL Cholesterol Direct mg/dL (75-193) 05/15/19 19:55 HDL Cholesterol mg/dL (23-92) 05/15/19 19:55 Free T4 0.85 ng/dL (0.82-1.77) 05/15/19 20:20 TSH 0.33 uIU/ml (0.34-5.60) L 05/15/19 19:55 Urine Source RANDOM 05/15/19 20:50 Urine Color YELLOW 05/15/19 20:50 Urine Clarity CLOUDY (CLEAR) 05/15/19 20:50 Urine pH 7.0 (4.6 - 8.0) 05/15/19 20:50 Ur Specific [place] 1.025 (1.005-1.030) 05/15/19 20:50 Urine Protein >=300 mg/dL (NEGATIVE) 05/15/19 20:50 Urine Glucose (UA) 100 mg/dL (NEGATIVE) H 05/15/19 20:50 Urine Ketones NEGATIVE mg/dL (NEGATIVE) 05/15/19 20:50 Urine Blood SMALL (NEGATIVE) H 05/15/19 20:50 Urine Nitrate POSITIVE (NEGATIVE) H 05/15/19 20:50 Urine Bilirubin NEGATIVE (NEGATIVE) 05/15/19 20:50 Urine Urobilinogen 1.0 E.U./dL (0.2 - 1.0) 05/15/19 20:50 Ur Leukocyte Esterase TRACE (NEGATIVE) H 05/15/19 20:50 Urine RBC 5-10 /hpf (0-5) H 05/15/19 20:50 Urine WBC 6-10 /hpf (0-5) 05/15/19 20:50 Ur Epithelial Cells FEW /lpf (FEW) 05/15/19 20:50 Triple Phos Crystals FEW /hpf (FEW) 05/15/19 20:50 Urine Bacteria 4+ /hpf (NONE SEEN) H 05/15/19 20:50 RPR NONREACTIVE (NONREACTIVE) 05/15/19 19:55 - Physical Exam Vitals and I&O: Vital Signs Temp 97.6 F 05/23/19 05:49 Pulse 65 05/23/19 05:49 Resp 18 05/23/19 05:49 BP 157/94 05/23/19 05:49 Pulse Ox 96 05/23/19 05:49 Intake & Output 05/22/19 05/23/19 05/23/19 18:59 06:59 18:59 Intake Total 1400 180 Output Total 800 Balance 600 180 Weight (lbs) 63.503 kg Intake: Oral 1400 180 Output: Urine 800 Other: # Voids 3 # Bowel Movements 1 0 Stool Characteristics Soft Formed Brown Weight Source Bedscale Active Medications: Current Medications Acetaminophen (Tylenol) 650 mg PO Q4HR PRN PRN Reason: Pain or Fever >101 Stop: 07/14/19 23:09 Last Admin: 05/16/19 13:21 Dose: 650 mg Al Hydrox/Mg Hydrox/Simethicone (Maalox) 30 ml PO Q4H PRN PRN Reason: GI DISTRESS Amlodipine Besylate (Norvasc) 5 mg PO DAILY [facility] Stop: 07/15/19 08:59 Last Admin: 05/22/19 09:08 Dose: 5 mg Divalproex Sodium (Depakote Dr) 125 mg PO Q12HR [facility]; Protocol Stop: 07/18/19 08:59 Last Admin: 05/22/19 20:57 Dose: 125 mg Docusate Sodium (Colace) 100 mg PO QPM [facility] Stop: 07/15/19 16:59 Last Admin: 05/22/19 18:05 Dose: 100 mg Escitalopram Oxalate (Lexapro) 10 mg PO DAILY [facility]; Protocol Stop: 07/15/19 08:59 Last Admin: 05/22/19 09:08 Dose: Not Given Insulin Human Lispro (Humalog Insulin Sliding Scale) 0 units SUBQ ACHS [facility]; Protocol Stop: 07/15/19 07:29 Last Admin: 05/23/19 06:48 Dose: Not Given Lactobacillus Rhamnosus (Culturelle 15b) 1 each PO DAILY [facility] Stop: 07/15/19 08:59 Last Admin: 05/22/19 09:09 Dose: Not Given Levofloxacin (Levaquin) 500 mg PO DAILY [facility] Stop: 05/25/19 09:01 Last Admin: 05/22/19 09:08 Dose: 500 mg Lorazepam (Ativan) 0.5 mg PO Q4HR PRN; Protocol PRN Reason: Anxiety Stop: 06/14/19 22:52 Magnesium Hydroxide (Milk Of Magnesia) 30 ml PO Q24H PRN PRN Reason: Constipation Stop: 07/14/19 23:09 Last Admin: 05/20/19 13:58 Dose: 30 ml Metformin HCl (Glucophage) 500 mg PO TIDWM [facility] Stop: 07/15/19 16:59 Last Admin: 05/22/19 17:27 Dose: Not Given Miscellaneous (Probiotic Screen) 1 ea MC PRN PRN PRN Reason: PROTOCOL Stop: 07/17/19 11:44 Zolpidem Tartrate (Ambien) 5 mg PO HS PRN PRN Reason: Insomnia Stop: 07/14/19 22:52 Last Admin: 05/19/19 21:18 Dose: 5 mg General: Alert, No acute distress HEENT: Atraumatic, PERRLA, EOMI Neck: Supple Cardiovascular: Regular rate, Normal S1, Normal S2 Lungs: Clear to auscultation Abdomen: Bowel sounds Extremities: no Clubbing, no Cyanosis Neurological: Normal gait Assessment/Plan - Assessment Assessment: Psychosis UTI +Proteus Mirabilis hypokalemia Diabetes Mellitus HTN elevated Diabetes Mellitus Hyperthyroidism CVA Depression Bipolar disorder dysphagia, oral phase +MRSA nares - Plan Plan: Will admit to [facility] PO Potassium given in ER, repeat K+ this AM switched to Levoquin 500mg PO daily x 7days continue home meds bactroban ointment added will add clonidine PO PRN Nutritional Asmnt/Malnutr-PDOC - Dietary Evaluation Malnutrition Findings (Please click <Entered> for more info): Nutritional Asmnt/Malnutrition Start: 05/16/19 15: 34 Text: Status: Active Freq: Protocol: Document 05/16/19 15:34 LENA (Rec: 05/16/19 15:38 LENA [email or web address]) Nutritional Asmnt/Malnutrition Patient General Information Nutritional Screening Moderate Risk Consult Diagnosis Psychosis Pertinent Medical Hx/Surgical Hx HTN, DM, Hyperthyroidism, CVA, Depression, Bipolar disorder, Psychosis Subjective Information Pt is a 63-year-old male admitted on 05/15 from SNF d/t aggressive behavior, yelling, and refusing care. Pt ate 25% breakfast and 75% lunch today per Meal/Nutrition Activity Record. Will continue to monitor PO intake. Consult related to DM and neck stoma. Recommend to add CCHO to diet Rx for optimal glucose control if levels continue be out of normal limits. Visited Pt later afternoon today, Pt was in his wheelchair out in the [place]. Checked neck stoma, it was healed, noted as possibly from previous tracheostomy. HT: 58 WT: 140 LB (63.64 kg) BMI: 21.29 (Normal) BM: Not Noted I/O: 250/100 (+150) Tam: 17 Diet Order: Mechanical Soft, NCS, ELIF Estimated Energy Needs: ( Geriatric, CBW) 4955-6444 kcals (25-30 kcals/ kg) 64-76g Pro (1.0-1.2 g/kg) 2991-3728 ml (25-30 ml/kg) Current Diet Order/ Nutrition Support Mechanical Soft, NCS, ELIF Pertinent Medications Maalox (PRN), Colace, INS-SS, Culturelle 15b, MOM (PRN), Glucophage Pertinent Labs 05/15: K 3.2, Glucose 190, T Bili 2.1, Alb 3.9 Nutritional Hx/Data Height 1.73 m Height (Calculated Centimeters) 172.7 Current Weight (lbs) 63.503 kg Weight (Calculated Kilograms) 63.5 Weight (Calculated Grams) 20945.9 [place] Body Weight 154 LB (70kg) % [place] Body Weight 91 Body Mass Index (BMI) 21.2 Weight Status Overweight GI Symptoms Skin Integrity/Comment: Tam: 17 Current %PO Fair (50-74%) Estimated Nutritional Goals BEE in Kcals: Using Current wt Calories/Kcals/Kg 25-30 Kcals Calculated [id number] Protein: Using Current wt Protein g/k.0-1.2 Protein Calculated 64-76 Fluid: ml 1150-3403 ml (25-30 ml/kg) Nutritional Problem 1. Problem Problem Altered nutrition related labs Etiology r/t endocrine dysfunction Signs/Symptoms: aeb Hx DM, glucose 190. Malnutrition Related to Morbid Obesity Malnutrition related to morbid obesity No Intervention/Recommendation Comments 1. Continue with Mechanical Soft, NCS, ELIF diet as ordered . 2. Consider CCHO diet Rx for optimal glucose control if levels continue be out of normal limits. Expected Outcomes/Goals Expected Outcomes/Goals 1. PO intake to meet 75% of nutritional needs. 2. Monitor PO intake, wt, skin integrity, and nutrition related labs to trend WNL. 3. F/U as low risk in 7 days, 05/23
[2019-05-23] MEDS: Lactobacillus Rhamnosus GG 15 Billion CFU CAP.SPRINK PO SCH (09:06)
[2019-05-23] MEDS: Multivitamin w/ Minerals Tab PO SCH (09:11)
--- NOTE | 2019-05-23 23:53 | Progress Notes ---
DATE: SUBJECTIVE: The patient seen, chart reviewed, discussed with staff. The patient seems somewhat calmer, but remains irritable at times, still does not want to take medications, reasons are unclear. He is pretty tangential, still talking about being bullied by some big people. Fair sleep, fair appetite, mostly keeps to self. No agitation, no escalation of behaviors. I did encourage better med compliance. We will continue to monitor. [facility]# [id number]
[2019-05-24] MEDS: INSULIN LISPRO SLIDING SCALE 100 UNITS/ML UNIT SUBQ SCH ×4 (07:06→20:49)
[2019-05-24] MEDS: Lactobacillus Rhamnosus GG 15 Billion CFU CAP.SPRINK PO SCH (09:03)
[2019-05-24] MEDS: Multivitamin w/ Minerals Tab PO SCH (09:03)
--- NOTE | 2019-05-24 11:40 | General Progress Note ---
Subjective - Review of Systems Service Date: 05/24/19 Subjective: Awake, alert, no acute distress VS T 97.4 P 87 R 19 BP 148/88 Objective - Results Result Diagrams: 05/15/19 19:55 05/15/19 19:55 Recent Labs: Laboratory Last Values WBC 6.7 Th/cmm (4.8-10.8) 05/15/19 19:55 RBC 5.24 Mil/cmm (3.80-5.80) 05/15/19 19:55 Hgb 17.1 gm/dL (12-16) 05/15/19 19:55 Hct 51.4 % (41.0-60) 05/15/19 19:55 MCV 98.0 fl (80-99) 05/15/19 19:55 MCH 32.6 pg (27.0-31.0) H 05/15/19 19:55 MCHC Differential 33.3 pg (28.0-36.0) 05/15/19 19:55 RDW 12.1 % (11.5-20.0) 05/15/19 19:55 Plt Count 146 Th/cmm (150-400) L 05/15/19 19:55 MPV 8.9 fl 05/15/19 19:55 Neutrophils % 66.5 % (40.0-80.0) 05/15/19 19:55 Lymphocytes % 24.5 % (20.0-50.0) 05/15/19 19:55 Monocytes % 6.9 % (2.0-10.0) 05/15/19 19:55 Eosinophils % 1.4 % (0.0-5.0) 05/15/19 19:55 Basophils % 0.7 % (0.0-2.0) 05/15/19 19:55 Sodium 137 mEq/L (136-145) 05/15/19 19:55 Potassium 3.2 mEq/L (3.5-5.1) L 05/15/19 19:55 Chloride 107 mEq/L (98-107) 05/15/19 19:55 Carbon Dioxide 18.8 mEq/L (21.0-31.0) L 05/15/19 19:55 Anion Gap 14.4 (7.0-16.0) 05/15/19 19:55 BUN 23 mg/dL (7-25) 05/15/19 19:55 Creatinine 1.2 mg/dL (0.7-1.3) 05/15/19 19:55 Est GFR ( Amer) > 60.0 ml/min (>90) 05/15/19 19:55 Est GFR (Non-Af Amer) > 60.0 ml/min 05/15/19 19:55 BUN/Creatinine Ratio 19.2 05/15/19 19:55 Glucose 190 mg/dL (70-105) H 05/15/19 19:55 POC Glucose 147 MG/DL (70 - 105) H 05/16/19 16:55 Calcium 8.8 mg/dL (8.6-10.3) 05/15/19 19:55 Total Bilirubin 2.1 mg/dL (0.3-1.0) H 05/15/19 19:55 AST 21 U/L (13-39) 05/15/19 19:55 ALT 17 U/L (7-52) 05/15/19 19:55 Alkaline Phosphatase 86 U/L (34-104) 05/15/19 19:55 Troponin I 0.03 ng/mL (0.01-0.05) 05/15/19 19:55 B-Natriuretic Peptide 23.4 pg/mL (5.0-100.0) 05/15/19 19:55 Total Protein 6.4 gm/dL (6.0-8.3) 05/15/19 19:55 Albumin 3.9 gm/dL (4.2-5.5) L 05/15/19 19:55 Globulin 2.5 gm/dL 05/15/19 19:55 Albumin/Globulin Ratio 1.6 (1.0-1.8) 05/15/19 19:55 Triglycerides mg/dL (<150) 05/15/19 19:55 Cholesterol mg/dL (<200) 05/15/19 19:55 LDL Cholesterol Direct mg/dL (75-193) 05/15/19 19:55 HDL Cholesterol mg/dL (23-92) 05/15/19 19:55 Free T4 0.85 ng/dL (0.82-1.77) 05/15/19 20:20 TSH 0.33 uIU/ml (0.34-5.60) L 05/15/19 19:55 Urine Source RANDOM 05/15/19 20:50 Urine Color YELLOW 05/15/19 20:50 Urine Clarity CLOUDY (CLEAR) 05/15/19 20:50 Urine pH 7.0 (4.6 - 8.0) 05/15/19 20:50 Ur Specific [place] 1.025 (1.005-1.030) 05/15/19 20:50 Urine Protein >=300 mg/dL (NEGATIVE) 05/15/19 20:50 Urine Glucose (UA) 100 mg/dL (NEGATIVE) H 05/15/19 20:50 Urine Ketones NEGATIVE mg/dL (NEGATIVE) 05/15/19 20:50 Urine Blood SMALL (NEGATIVE) H 05/15/19 20:50 Urine Nitrate POSITIVE (NEGATIVE) H 05/15/19 20:50 Urine Bilirubin NEGATIVE (NEGATIVE) 05/15/19 20:50 Urine Urobilinogen 1.0 E.U./dL (0.2 - 1.0) 05/15/19 20:50 Ur Leukocyte Esterase TRACE (NEGATIVE) H 05/15/19 20:50 Urine RBC 5-10 /hpf (0-5) H 05/15/19 20:50 Urine WBC 6-10 /hpf (0-5) 05/15/19 20:50 Ur Epithelial Cells FEW /lpf (FEW) 05/15/19 20:50 Triple Phos Crystals FEW /hpf (FEW) 05/15/19 20:50 Urine Bacteria 4+ /hpf (NONE SEEN) H 05/15/19 20:50 RPR NONREACTIVE (NONREACTIVE) 05/15/19 19:55 - Physical Exam Vitals and I&O: Vital Signs Temp 97.4 F 05/24/19 06:29 Pulse 87 05/24/19 06:29 Resp 19 05/24/19 07:57 BP 148/88 05/24/19 06:29 Pulse Ox 97 05/24/19 06:29 Intake & Output 05/23/19 05/24/19 05/24/19 18:59 06:59 18:59 Intake Total 120 Balance 120 Intake: Oral 120 Other: # Voids 3 Active Medications: Current Medications Acetaminophen (Tylenol) 650 mg PO Q4HR PRN PRN Reason: Pain or Fever >101 Stop: 07/14/19 23:09 Last Admin: 05/16/19 13:21 Dose: 650 mg Al Hydrox/Mg Hydrox/Simethicone (Maalox) 30 ml PO Q4H PRN PRN Reason: GI DISTRESS Amlodipine Besylate (Norvasc) 10 mg PO DAILY [facility] Stop: 07/22/19 08:59 Last Admin: 05/24/19 09:03 Dose: Not Given Divalproex Sodium (Depakote Dr) 125 mg PO Q12HR [facility]; Protocol Stop: 07/18/19 08:59 Last Admin: 05/24/19 09:03 Dose: Not Given Docusate Sodium (Colace) 100 mg PO QPM [facility] Stop: 07/15/19 16:59 Last Admin: 05/23/19 17:17 Dose: Not Given Escitalopram Oxalate (Lexapro) 10 mg PO DAILY [facility]; Protocol Stop: 07/15/19 08:59 Last Admin: 05/24/19 09:03 Dose: Not Given Insulin Human Lispro (Humalog Insulin Sliding Scale) 0 units SUBQ ACHS [facility]; Protocol Stop: 07/15/19 07:29 Last Admin: 05/24/19 07:06 Dose: Not Given Lactobacillus Rhamnosus (Culturelle 15b) 1 each PO DAILY [facility] Stop: 07/15/19 08:59 Last Admin: 05/24/19 09:03 Dose: Not Given Levofloxacin (Levaquin) 500 mg PO DAILY [facility] Stop: 05/25/19 09:01 Last Admin: 05/24/19 09:03 Dose: Not Given Lorazepam (Ativan) 0.5 mg PO Q4HR PRN; Protocol PRN Reason: Anxiety Stop: 06/14/19 22:52 Magnesium Hydroxide (Milk Of Magnesia) 30 ml PO Q24H PRN PRN Reason: Constipation Stop: 07/14/19 23:09 Last Admin: 05/20/19 13:58 Dose: 30 ml Metformin HCl (Glucophage) 500 mg PO TIDWM [facility] Stop: 07/15/19 16:59 Last Admin: 05/24/19 09:03 Dose: Not Given Miscellaneous (Probiotic Screen) 1 ea MC PRN PRN PRN Reason: PROTOCOL Stop: 07/17/19 11:44 Zolpidem Tartrate (Ambien) 5 mg PO HS PRN PRN Reason: Insomnia Stop: 07/14/19 22:52 Last Admin: 05/19/19 21:18 Dose: 5 mg General: Alert, No acute distress HEENT: Atraumatic, PERRLA, EOMI Neck: Supple Cardiovascular: Regular rate, Normal S1, Normal S2 Lungs: Clear to auscultation Abdomen: Bowel sounds Extremities: no Clubbing, no Cyanosis Neurological: Normal gait Assessment/Plan - Assessment Assessment: Psychosis UTI +Proteus Mirabilis hypokalemia Diabetes Mellitus HTN elevated Diabetes Mellitus Hyperthyroidism CVA Depression Bipolar disorder dysphagia, oral phase +MRSA nares - Plan Plan: Will admit to [facility] PO Potassium given in ER, repeat K+ this AM switched to Levoquin 500mg PO daily x 7days continue home meds bactroban ointment added will add clonidine PO PRN Nutritional Asmnt/Malnutr-PDOC - Dietary Evaluation Malnutrition Findings (Please click <Entered> for more info): Nutritional Asmnt/Malnutrition Start: 05/16/19 15: 34 Text: Status: Active Freq: Protocol: Document 05/16/19 15:34 LENA (Rec: 05/16/19 15:38 LENA [email or web address]) Nutritional Asmnt/Malnutrition Patient General Information Nutritional Screening Moderate Risk Consult Diagnosis Psychosis Pertinent Medical Hx/Surgical Hx HTN, DM, Hyperthyroidism, CVA, Depression, Bipolar disorder, Psychosis Subjective Information Pt is a 63-year-old male admitted on 05/15 from SNF d/t aggressive behavior, yelling, and refusing care. Pt ate 25% breakfast and 75% lunch today per Meal/Nutrition Activity Record. Will continue to monitor PO intake. Consult related to DM and neck stoma. Recommend to add CCHO to diet Rx for optimal glucose control if levels continue be out of normal limits. Visited Pt later afternoon today, Pt was in his wheelchair out in the [place]. Checked neck stoma, it was healed, noted as possibly from previous tracheostomy. HT: 58 WT: 140 LB (63.64 kg) BMI: 21.29 (Normal) BM: Not Noted I/O: 250/100 (+150) Tam: 17 Diet Order: Mechanical Soft, NCS, ELIF Estimated Energy Needs: ( Geriatric, CBW) 0566-5932 kcals (25-30 kcals/ kg) 64-76g Pro (1.0-1.2 g/kg) 3336-5062 ml (25-30 ml/kg) Current Diet Order/ Nutrition Support Mechanical Soft, NCS, ELIF Pertinent Medications Maalox (PRN), Colace, INS-SS, Culturelle 15b, MOM (PRN), Glucophage Pertinent Labs 05/15: K 3.2, Glucose 190, T Bili 2.1, Alb 3.9 Nutritional Hx/Data Height 1.73 m Height (Calculated Centimeters) 172.7 Current Weight (lbs) 63.503 kg Weight (Calculated Kilograms) 63.5 Weight (Calculated Grams) 99904.9 [place] Body Weight 154 LB (70kg) % [place] Body Weight 91 Body Mass Index (BMI) 21.2 Weight Status Overweight GI Symptoms Skin Integrity/Comment: Tam: 17 Current %PO Fair (50-74%) Estimated Nutritional Goals BEE in Kcals: Using Current wt Calories/Kcals/Kg 25-30 Kcals Calculated 5630-2990 Protein: Using Current wt Protein g/k.0-1.2 Protein Calculated 64-76 Fluid: ml 0291-2547 ml (25-30 ml/kg) Nutritional Problem 1. Problem Problem Altered nutrition related labs Etiology r/t endocrine dysfunction Signs/Symptoms: aeb Hx DM, glucose 190. Malnutrition Related to Morbid Obesity Malnutrition related to morbid obesity No Intervention/Recommendation Comments 1. Continue with Mechanical Soft, NCS, ELIF diet as ordered . 2. Consider CCHO diet Rx for optimal glucose control if levels continue be out of normal limits. Expected Outcomes/Goals Expected Outcomes/Goals 1. PO intake to meet 75% of nutritional needs. 2. Monitor PO intake, wt, skin integrity, and nutrition related labs to trend WNL. 3. F/U as low risk in 7 days, 05/23
--- NOTE | 2019-05-24 21:24 | Progress Notes ---
DATE: 05/24/2019 SUBJECTIVE: The patient is currently in the hospital. Her mood at times calling woman nurses bad names, irritated toward others, poorly sensitive, poorly empathic. He remains agitated, unpredictable, at times, but he is not aggressive. Nursing staff was able to give him some medications with prompting, he remains angry, upset. We will continue to monitor, increase dosing of Depakote. [facility]# [id number]
[2019-05-25] MEDS: INSULIN LISPRO SLIDING SCALE 100 UNITS/ML UNIT SUBQ SCH ×4 (06:33→21:51)
[2019-05-25] MEDS: Lactobacillus Rhamnosus GG 15 Billion CFU CAP.SPRINK PO SCH (08:25)
[2019-05-25] MEDS: Multivitamin w/ Minerals Tab PO SCH (08:25)
--- NOTE | 2019-05-25 12:59 | General Progress Note ---
Subjective - Review of Systems Service Date: 05/25/19 Subjective: Awake, alert, no acute distress VS T 97.9 P 87 R 16 BP 148/88 Objective - Results Result Diagrams: 05/15/19 19:55 05/15/19 19:55 Recent Labs: Laboratory Last Values WBC 6.7 Th/cmm (4.8-10.8) 05/15/19 19:55 RBC 5.24 Mil/cmm (3.80-5.80) 05/15/19 19:55 Hgb 17.1 gm/dL (12-16) 05/15/19 19:55 Hct 51.4 % (41.0-60) 05/15/19 19:55 MCV 98.0 fl (80-99) 05/15/19 19:55 MCH 32.6 pg (27.0-31.0) H 05/15/19 19:55 MCHC Differential 33.3 pg (28.0-36.0) 05/15/19 19:55 RDW 12.1 % (11.5-20.0) 05/15/19 19:55 Plt Count 146 Th/cmm (150-400) L 05/15/19 19:55 MPV 8.9 fl 05/15/19 19:55 Neutrophils % 66.5 % (40.0-80.0) 05/15/19 19:55 Lymphocytes % 24.5 % (20.0-50.0) 05/15/19 19:55 Monocytes % 6.9 % (2.0-10.0) 05/15/19 19:55 Eosinophils % 1.4 % (0.0-5.0) 05/15/19 19:55 Basophils % 0.7 % (0.0-2.0) 05/15/19 19:55 Sodium 137 mEq/L (136-145) 05/15/19 19:55 Potassium 3.2 mEq/L (3.5-5.1) L 05/15/19 19:55 Chloride 107 mEq/L (98-107) 05/15/19 19:55 Carbon Dioxide 18.8 mEq/L (21.0-31.0) L 05/15/19 19:55 Anion Gap 14.4 (7.0-16.0) 05/15/19 19:55 BUN 23 mg/dL (7-25) 05/15/19 19:55 Creatinine 1.2 mg/dL (0.7-1.3) 05/15/19 19:55 Est GFR ( Amer) > 60.0 ml/min (>90) 05/15/19 19:55 Est GFR (Non-Af Amer) > 60.0 ml/min 05/15/19 19:55 BUN/Creatinine Ratio 19.2 05/15/19 19:55 Glucose 190 mg/dL (70-105) H 05/15/19 19:55 POC Glucose 147 MG/DL (70 - 105) H 05/16/19 16:55 Calcium 8.8 mg/dL (8.6-10.3) 05/15/19 19:55 Total Bilirubin 2.1 mg/dL (0.3-1.0) H 05/15/19 19:55 AST 21 U/L (13-39) 05/15/19 19:55 ALT 17 U/L (7-52) 05/15/19 19:55 Alkaline Phosphatase 86 U/L (34-104) 05/15/19 19:55 Troponin I 0.03 ng/mL (0.01-0.05) 05/15/19 19:55 B-Natriuretic Peptide 23.4 pg/mL (5.0-100.0) 05/15/19 19:55 Total Protein 6.4 gm/dL (6.0-8.3) 05/15/19 19:55 Albumin 3.9 gm/dL (4.2-5.5) L 05/15/19 19:55 Globulin 2.5 gm/dL 05/15/19 19:55 Albumin/Globulin Ratio 1.6 (1.0-1.8) 05/15/19 19:55 Triglycerides mg/dL (<150) 05/15/19 19:55 Cholesterol mg/dL (<200) 05/15/19 19:55 LDL Cholesterol Direct mg/dL (75-193) 05/15/19 19:55 HDL Cholesterol mg/dL (23-92) 05/15/19 19:55 Free T4 0.85 ng/dL (0.82-1.77) 05/15/19 20:20 TSH 0.33 uIU/ml (0.34-5.60) L 05/15/19 19:55 Urine Source RANDOM 05/15/19 20:50 Urine Color YELLOW 05/15/19 20:50 Urine Clarity CLOUDY (CLEAR) 05/15/19 20:50 Urine pH 7.0 (4.6 - 8.0) 05/15/19 20:50 Ur Specific [place] 1.025 (1.005-1.030) 05/15/19 20:50 Urine Protein >=300 mg/dL (NEGATIVE) 05/15/19 20:50 Urine Glucose (UA) 100 mg/dL (NEGATIVE) H 05/15/19 20:50 Urine Ketones NEGATIVE mg/dL (NEGATIVE) 05/15/19 20:50 Urine Blood SMALL (NEGATIVE) H 05/15/19 20:50 Urine Nitrate POSITIVE (NEGATIVE) H 05/15/19 20:50 Urine Bilirubin NEGATIVE (NEGATIVE) 05/15/19 20:50 Urine Urobilinogen 1.0 E.U./dL (0.2 - 1.0) 05/15/19 20:50 Ur Leukocyte Esterase TRACE (NEGATIVE) H 05/15/19 20:50 Urine RBC 5-10 /hpf (0-5) H 05/15/19 20:50 Urine WBC 6-10 /hpf (0-5) 05/15/19 20:50 Ur Epithelial Cells FEW /lpf (FEW) 05/15/19 20:50 Triple Phos Crystals FEW /hpf (FEW) 05/15/19 20:50 Urine Bacteria 4+ /hpf (NONE SEEN) H 05/15/19 20:50 RPR NONREACTIVE (NONREACTIVE) 05/15/19 19:55 - Physical Exam Vitals and I&O: Vital Signs Temp 97.9 F 05/25/19 07:00 Pulse 87 05/25/19 08:26 Resp 16 05/25/19 07:51 BP 148/88 05/25/19 08:26 Pulse Ox 97 05/25/19 07:00 Intake & Output 05/24/19 05/25/19 05/25/19 18:59 06:59 18:59 Intake Total 240 Balance 240 Intake: Oral 240 Other: # Voids 2 Active Medications: Current Medications Acetaminophen (Tylenol) 650 mg PO Q4HR PRN PRN Reason: Pain or Fever >101 Stop: 07/14/19 23:09 Last Admin: 05/16/19 13:21 Dose: 650 mg Al Hydrox/Mg Hydrox/Simethicone (Maalox) 30 ml PO Q4H PRN PRN Reason: GI DISTRESS Amlodipine Besylate (Norvasc) 10 mg PO DAILY [facility] Stop: 07/22/19 08:59 Last Admin: 05/25/19 08:26 Dose: 10 mg Divalproex Sodium (Depakote Dr) 250 mg PO Q12HR [facility]; Protocol Stop: 07/23/19 20:59 Last Admin: 05/25/19 08:26 Dose: 250 mg Docusate Sodium (Colace) 100 mg PO QPM [facility] Stop: 07/15/19 16:59 Last Admin: 05/24/19 16:39 Dose: Not Given Escitalopram Oxalate (Lexapro) 10 mg PO DAILY [facility]; Protocol Stop: 07/15/19 08:59 Last Admin: 05/25/19 08:26 Dose: 10 mg Insulin Human Lispro (Humalog Insulin Sliding Scale) 0 units SUBQ ACHS [facility]; Protocol Stop: 07/15/19 07:29 Last Admin: 05/25/19 11:30 Dose: Not Given Lactobacillus Rhamnosus (Culturelle 15b) 1 each PO DAILY [facility] Stop: 07/15/19 08:59 Last Admin: 05/25/19 08:25 Dose: 1 each Lorazepam (Ativan) 0.5 mg PO Q4HR PRN; Protocol PRN Reason: Anxiety Stop: 06/14/19 22:52 Magnesium Hydroxide (Milk Of Magnesia) 30 ml PO Q24H PRN PRN Reason: Constipation Stop: 07/14/19 23:09 Last Admin: 05/20/19 13:58 Dose: 30 ml Metformin HCl (Glucophage) 500 mg PO TIDWM [facility] Stop: 07/15/19 16:59 Last Admin: 05/25/19 11:54 Dose: 500 mg Miscellaneous (Probiotic Screen) 1 ea MC PRN PRN PRN Reason: PROTOCOL Stop: 07/17/19 11:44 Zolpidem Tartrate (Ambien) 5 mg PO HS PRN PRN Reason: Insomnia Stop: 07/14/19 22:52 Last Admin: 05/19/19 21:18 Dose: 5 mg General: Alert, No acute distress HEENT: Atraumatic, PERRLA, EOMI Neck: Supple Cardiovascular: Regular rate, Normal S1, Normal S2 Lungs: Clear to auscultation Abdomen: Bowel sounds Extremities: no Clubbing, no Cyanosis Neurological: Normal gait Assessment/Plan - Assessment Assessment: Psychosis UTI +Proteus Mirabilis hypokalemia Diabetes Mellitus HTN elevated Diabetes Mellitus Hyperthyroidism CVA Depression Bipolar disorder dysphagia, oral phase +MRSA nares - Plan Plan: Will admit to [facility] PO Potassium given in ER, repeat K+ this AM switched to Levoquin 500mg PO daily x 7days continue home meds bactroban ointment added will add clonidine PO PRN Nutritional Asmnt/Malnutr-PDOC - Dietary Evaluation Malnutrition Findings (Please click <Entered> for more info): Nutritional Asmnt/Malnutrition Start: 05/16/19 15: 34 Text: Status: Active Freq: Protocol: Document 05/16/19 15:34 LENA (Rec: 05/16/19 15:38 LENA [email or web address]) Nutritional Asmnt/Malnutrition Patient General Information Nutritional Screening Moderate Risk Consult Diagnosis Psychosis Pertinent Medical Hx/Surgical Hx HTN, DM, Hyperthyroidism, CVA, Depression, Bipolar disorder, Psychosis Subjective Information Pt is a 63-year-old male admitted on 05/15 from SNF d/t aggressive behavior, yelling, and refusing care. Pt ate 25% breakfast and 75% lunch today per Meal/Nutrition Activity Record. Will continue to monitor PO intake. Consult related to DM and neck stoma. Recommend to add CCHO to diet Rx for optimal glucose control if levels continue be out of normal limits. Visited Pt later afternoon today, Pt was in his wheelchair out in [place]. Checked neck stoma, it was healed, noted as possibly from previous tracheostomy. HT: 58 WT: 140 LB (63.64 kg) BMI: 21.29 (Normal) BM: Not Noted I/O: 250/100 (+150) Tam: 17 Diet Order: Mechanical Soft, NCS, ELIF Estimated Energy Needs: ( Geriatric, CBW) 0056-5221 kcals (25-30 kcals/ kg) 64-76g Pro (1.0-1.2 g/kg) 9144-0441 ml (25-30 ml/kg) Current Diet Order/ Nutrition Support Mechanical Soft, NCS, ELIF Pertinent Medications Maalox (PRN), Colace, INS-SS, Culturelle 15b, MOM (PRN), Glucophage Pertinent Labs 05/15: K 3.2, Glucose 190, T Bili 2.1, Alb 3.9 Nutritional Hx/Data Height 1.73 m Height (Calculated Centimeters) 172.7 Current Weight (lbs) 63.503 kg Weight (Calculated Kilograms) 63.5 Weight (Calculated Grams) 89249.9 [place] Body Weight 154 LB (70kg) % [place] Body Weight 91 Body Mass Index (BMI) 21.2 Weight Status Overweight GI Symptoms Skin Integrity/Comment: Tam: 17 Current %PO Fair (50-74%) Estimated Nutritional Goals BEE in Kcals: Using Current wt Calories/Kcals/Kg 25-30 Kcals Calculated 8592-2040 Protein: Using Current wt Protein g/k.0-1.2 Protein Calculated 64-76 Fluid: ml 5777-9813 ml (25-30 ml/kg) Nutritional Problem 1. Problem Problem Altered nutrition related labs Etiology r/t endocrine dysfunction Signs/Symptoms: aeb Hx DM, glucose 190. Malnutrition Related to Morbid Obesity Malnutrition related to morbid obesity No Intervention/Recommendation Comments 1. Continue with Mechanical Soft, NCS, ELIF diet as ordered . 2. Consider CCHO diet Rx for optimal glucose control if levels continue be out of normal limits. Expected Outcomes/Goals Expected Outcomes/Goals 1. PO intake to meet 75% of nutritional needs. 2. Monitor PO intake, wt, skin integrity, and nutrition related labs to trend WNL. 3. F/U as low risk in 7 days, 05/23
--- NOTE | 2019-05-25 22:42 | Progress Notes ---
DATE: 05/25/2019 SUBJECTIVE: The patient in the hospital, still unruly at times, gets upset. No agitation, no escalation of behaviors. He has been generally calm, cooperative, friendly, just sometimes verbal towards some staff members, redirectable. We are continuing to monitor and trying to convince him to take medications. Ongoing safety concerns. JOB# [id number]
[2019-05-26] MEDS: INSULIN LISPRO SLIDING SCALE 100 UNITS/ML UNIT SUBQ SCH ×4 (06:46→20:59)
--- NOTE | 2019-05-26 08:42 | General Progress Note ---
Subjective - Review of Systems Service Date: 05/26/19 Subjective: Awake, alert, no acute distress VS T 96.3 P 76 R 20 BP 132/72 Objective - Results Result Diagrams: 05/15/19 19:55 05/15/19 19:55 Recent Labs: Laboratory Last Values WBC 6.7 Th/cmm (4.8-10.8) 05/15/19 19:55 RBC 5.24 Mil/cmm (3.80-5.80) 05/15/19 19:55 Hgb 17.1 gm/dL (12-16) 05/15/19 19:55 Hct 51.4 % (41.0-60) 05/15/19 19:55 MCV 98.0 fl (80-99) 05/15/19 19:55 MCH 32.6 pg (27.0-31.0) H 05/15/19 19:55 MCHC Differential 33.3 pg (28.0-36.0) 05/15/19 19:55 RDW 12.1 % (11.5-20.0) 05/15/19 19:55 Plt Count 146 Th/cmm (150-400) L 05/15/19 19:55 MPV 8.9 fl 05/15/19 19:55 Neutrophils % 66.5 % (40.0-80.0) 05/15/19 19:55 Lymphocytes % 24.5 % (20.0-50.0) 05/15/19 19:55 Monocytes % 6.9 % (2.0-10.0) 05/15/19 19:55 Eosinophils % 1.4 % (0.0-5.0) 05/15/19 19:55 Basophils % 0.7 % (0.0-2.0) 05/15/19 19:55 Sodium 137 mEq/L (136-145) 05/15/19 19:55 Potassium 3.2 mEq/L (3.5-5.1) L 05/15/19 19:55 Chloride 107 mEq/L (98-107) 05/15/19 19:55 Carbon Dioxide 18.8 mEq/L (21.0-31.0) L 05/15/19 19:55 Anion Gap 14.4 (7.0-16.0) 05/15/19 19:55 BUN 23 mg/dL (7-25) 05/15/19 19:55 Creatinine 1.2 mg/dL (0.7-1.3) 05/15/19 19:55 Est GFR ( Amer) > 60.0 ml/min (>90) 05/15/19 19:55 Est GFR (Non-Af Amer) > 60.0 ml/min 05/15/19 19:55 BUN/Creatinine Ratio 19.2 05/15/19 19:55 Glucose 190 mg/dL (70-105) H 05/15/19 19:55 POC Glucose 147 MG/DL (70 - 105) H 05/16/19 16:55 Calcium 8.8 mg/dL (8.6-10.3) 05/15/19 19:55 Total Bilirubin 2.1 mg/dL (0.3-1.0) H 05/15/19 19:55 AST 21 U/L (13-39) 05/15/19 19:55 ALT 17 U/L (7-52) 05/15/19 19:55 Alkaline Phosphatase 86 U/L (34-104) 05/15/19 19:55 Troponin I 0.03 ng/mL (0.01-0.05) 05/15/19 19:55 B-Natriuretic Peptide 23.4 pg/mL (5.0-100.0) 05/15/19 19:55 Total Protein 6.4 gm/dL (6.0-8.3) 05/15/19 19:55 Albumin 3.9 gm/dL (4.2-5.5) L 05/15/19 19:55 Globulin 2.5 gm/dL 05/15/19 19:55 Albumin/Globulin Ratio 1.6 (1.0-1.8) 05/15/19 19:55 Triglycerides mg/dL (<150) 05/15/19 19:55 Cholesterol mg/dL (<200) 05/15/19 19:55 LDL Cholesterol Direct mg/dL (75-193) 05/15/19 19:55 HDL Cholesterol mg/dL (23-92) 05/15/19 19:55 Free T4 0.85 ng/dL (0.82-1.77) 05/15/19 20:20 TSH 0.33 uIU/ml (0.34-5.60) L 05/15/19 19:55 Urine Source RANDOM 05/15/19 20:50 Urine Color YELLOW 05/15/19 20:50 Urine Clarity CLOUDY (CLEAR) 05/15/19 20:50 Urine pH 7.0 (4.6 - 8.0) 05/15/19 20:50 Ur Specific [place] 1.025 (1.005-1.030) 05/15/19 20:50 Urine Protein >=300 mg/dL (NEGATIVE) 05/15/19 20:50 Urine Glucose (UA) 100 mg/dL (NEGATIVE) H 05/15/19 20:50 Urine Ketones NEGATIVE mg/dL (NEGATIVE) 05/15/19 20:50 Urine Blood SMALL (NEGATIVE) H 05/15/19 20:50 Urine Nitrate POSITIVE (NEGATIVE) H 05/15/19 20:50 Urine Bilirubin NEGATIVE (NEGATIVE) 05/15/19 20:50 Urine Urobilinogen 1.0 E.U./dL (0.2 - 1.0) 05/15/19 20:50 Ur Leukocyte Esterase TRACE (NEGATIVE) H 05/15/19 20:50 Urine RBC 5-10 /hpf (0-5) H 05/15/19 20:50 Urine WBC 6-10 /hpf (0-5) 05/15/19 20:50 Ur Epithelial Cells FEW /lpf (FEW) 05/15/19 20:50 Triple Phos Crystals FEW /hpf (FEW) 05/15/19 20:50 Urine Bacteria 4+ /hpf (NONE SEEN) H 05/15/19 20:50 RPR NONREACTIVE (NONREACTIVE) 05/15/19 19:55 - Physical Exam Vitals and I&O: Vital Signs Temp 96.3 F 05/26/19 06:56 Pulse 76 05/26/19 06:56 Resp 20 05/26/19 06:56 BP 132/72 05/26/19 06:56 Pulse Ox 97 05/26/19 06:56 Intake & Output 05/25/19 05/26/19 05/26/19 18:59 06:59 18:59 Intake Total 1540 1200 Balance 1540 1200 Intake: Oral 1540 1200 Other: # Voids 3 2 # Bowel Movements 0 Active Medications: Current Medications Acetaminophen (Tylenol) 650 mg PO Q4HR PRN PRN Reason: Pain or Fever >101 Stop: 07/14/19 23:09 Last Admin: 05/16/19 13:21 Dose: 650 mg Al Hydrox/Mg Hydrox/Simethicone (Maalox) 30 ml PO Q4H PRN PRN Reason: GI DISTRESS Amlodipine Besylate (Norvasc) 10 mg PO DAILY [facility] Stop: 07/22/19 08:59 Last Admin: 05/25/19 08:26 Dose: 10 mg Divalproex Sodium (Depakote Dr) 250 mg PO Q12HR MILA; Protocol Stop: 07/23/19 20:59 Last Admin: 05/25/19 20:43 Dose: 250 mg Docusate Sodium (Colace) 100 mg PO QPM MILA Stop: 07/15/19 16:59 Last Admin: 05/25/19 16:17 Dose: 100 mg Escitalopram Oxalate (Lexapro) 10 mg PO DAILY [facility]; Protocol Stop: 07/15/19 08:59 Last Admin: 05/25/19 08:26 Dose: 10 mg Insulin Human Lispro (Humalog Insulin Sliding Scale) 0 units SUBQ ACHS [facility]; Protocol Stop: 07/15/19 07:29 Last Admin: 05/26/19 06:46 Dose: Not Given Lactobacillus Rhamnosus (Culturelle 15b) 1 each PO DAILY [facility] Stop: 07/15/19 08:59 Last Admin: 05/25/19 08:25 Dose: 1 each Lorazepam (Ativan) 0.5 mg PO Q4HR PRN; Protocol PRN Reason: Anxiety Stop: 06/14/19 22:52 Magnesium Hydroxide (Milk Of Magnesia) 30 ml PO Q24H PRN PRN Reason: Constipation Stop: 07/14/19 23:09 Last Admin: 05/20/19 13:58 Dose: 30 ml Metformin HCl (Glucophage) 500 mg PO TIDWM [facility] Stop: 07/15/19 16:59 Last Admin: 05/25/19 16:17 Dose: 500 mg Miscellaneous (Probiotic Screen) 1 ea MC PRN PRN PRN Reason: PROTOCOL Stop: 07/17/19 11:44 Zolpidem Tartrate (Ambien) 5 mg PO HS PRN PRN Reason: Insomnia Stop: 07/14/19 22:52 Last Admin: 05/19/19 21:18 Dose: 5 mg General: Alert, No acute distress HEENT: Atraumatic, PERRLA, EOMI Neck: Supple Cardiovascular: Regular rate, Normal S1, Normal S2 Lungs: Clear to auscultation Abdomen: Bowel sounds Extremities: no Clubbing, no Cyanosis Neurological: Normal gait Assessment/Plan - Assessment Assessment: Psychosis UTI +Proteus Mirabilis hypokalemia Diabetes Mellitus HTN elevated Diabetes Mellitus Hyperthyroidism CVA Depression Bipolar disorder dysphagia, oral phase +MRSA nares - Plan Plan: Will admit to [facility] PO Potassium given in ER, repeat K+ this AM switched to Levoquin 500mg PO daily x 7days continue home meds bactroban ointment added will add clonidine PO PRN Nutritional Asmnt/Malnutr-PDOC - Dietary Evaluation Malnutrition Findings (Please click <Entered> for more info): Nutritional Asmnt/Malnutrition Start: 05/16/19 15: 34 Text: Status: Active Freq: Protocol: Document 05/16/19 15:34 LENA (Rec: 05/16/19 15:38 [email or web address] [email or web address]) Nutritional Asmnt/Malnutrition Patient General Information Nutritional Screening Moderate Risk Consult Diagnosis Psychosis Pertinent Medical Hx/Surgical Hx HTN, DM, Hyperthyroidism, CVA, Depression, Bipolar disorder, Psychosis Subjective Information Pt is a 63-year-old male admitted on 05/15 from SNF d/t aggressive behavior, yelling, and refusing care. Pt ate 25% breakfast and 75% lunch today per Meal/Nutrition Activity Record. Will continue to monitor PO intake. Consult related to DM and neck stoma. Recommend to add CCHO to diet Rx for optimal glucose control if levels continue be out of normal limits. Visited Pt later afternoon today, Pt was in his wheelchair out in the [place]. Checked neck stoma, it was healed, noted as possibly from previous tracheostomy. HT: 58 WT: 140 LB (63.64 kg) BMI: 21.29 (Normal) BM: Not Noted I/O: 250/100 (+150) Tam: 17 Diet Order: Mechanical Soft, NCS, ELIF Estimated Energy Needs: ( Geriatric, CBW) 3659-9867 kcals (25-30 kcals/ kg) 64-76g Pro (1.0-1.2 g/kg) 7482-2778 ml (25-30 ml/kg) Current Diet Order/ Nutrition Support Mechanical Soft, NCS, ELIF Pertinent Medications Maalox (PRN), Colace, INS-SS, Culturelle 15b, MOM (PRN), Glucophage Pertinent Labs 05/15: K 3.2, Glucose 190, T Bili 2.1, Alb 3.9 Nutritional Hx/Data Height 1.73 m Height (Calculated Centimeters) 172.7 Current Weight (lbs) 63.503 kg Weight (Calculated Kilograms) 63.5 Weight (Calculated Grams) 58048.9 [place] Body Weight 154 LB (70kg) % [place] Body Weight 91 Body Mass Index (BMI) 21.2 Weight Status Overweight GI Symptoms Skin Integrity/Comment: Tam: 17 Current %PO Fair (50-74%) Estimated Nutritional Goals BEE in Kcals: Using Current wt Calories/Kcals/Kg 25-30 Kcals Calculated 6218-4566 Protein: Using Current wt Protein g/k.0-1.2 Protein Calculated 64-76 Fluid: ml 9339-9038 ml (25-30 ml/kg) Nutritional Problem 1. Problem Problem Altered nutrition related labs Etiology r/t endocrine dysfunction Signs/Symptoms: aeb Hx DM, glucose 190. Malnutrition Related to Morbid Obesity Malnutrition related to morbid obesity No Intervention/Recommendation Comments 1. Continue with Mechanical Soft, NCS, ELIF diet as ordered . 2. Consider [facility] diet Rx for optimal glucose control if levels continue be out of normal limits. Expected Outcomes/Goals Expected Outcomes/Goals 1. PO intake to meet 75% of nutritional needs. 2. Monitor PO intake, wt, skin integrity, and nutrition related labs to trend WNL. 3. F/U as low risk in 7 days, 05/23
[2019-05-26] MEDS: Multivitamin w/ Minerals Tab PO SCH (09:07)
[2019-05-26] MEDS: Lactobacillus Rhamnosus GG 15 Billion CFU CAP.SPRINK PO SCH (09:07)
--- NOTE | 2019-05-26 19:27 | Progress Notes ---
DATE: 05/26/2019 The patient in the hospital, slept for about 8 hours, argumentative, angry, upset, withdrawn, mostly keeps to self, wants to be left alone. He states that if people leave him alone, he is not going to bother anybody. He is pretty impulsive, unpredictable, can get really angry, upset, escalates fast. Erratic medication compliance; we are continuing to monitor. Monitor for any ongoing behavioral disturbances. JOB# [id number]
[2019-05-27] MEDS: INSULIN LISPRO SLIDING SCALE 100 UNITS/ML UNIT SUBQ SCH ×4 (06:42→21:39)
--- NOTE | 2019-05-27 08:17 | General Progress Note ---
Subjective - Review of Systems Service Date: 05/27/19 Subjective: Awake, alert, no acute distress VS T 97.9 P 72 R 19 BP 151/89 Objective - Results Result Diagrams: 05/15/19 19:55 05/15/19 19:55 Recent Labs: Laboratory Last Values WBC 6.7 Th/cmm (4.8-10.8) 05/15/19 19:55 RBC 5.24 Mil/cmm (3.80-5.80) 05/15/19 19:55 Hgb 17.1 gm/dL (12-16) 05/15/19 19:55 Hct 51.4 % (41.0-60) 05/15/19 19:55 MCV 98.0 fl (80-99) 05/15/19 19:55 MCH 32.6 pg (27.0-31.0) H 05/15/19 19:55 MCHC Differential 33.3 pg (28.0-36.0) 05/15/19 19:55 RDW 12.1 % (11.5-20.0) 05/15/19 19:55 Plt Count 146 Th/cmm (150-400) L 05/15/19 19:55 MPV 8.9 fl 05/15/19 19:55 Neutrophils % 66.5 % (40.0-80.0) 05/15/19 19:55 Lymphocytes % 24.5 % (20.0-50.0) 05/15/19 19:55 Monocytes % 6.9 % (2.0-10.0) 05/15/19 19:55 Eosinophils % 1.4 % (0.0-5.0) 05/15/19 19:55 Basophils % 0.7 % (0.0-2.0) 05/15/19 19:55 Sodium 137 mEq/L (136-145) 05/15/19 19:55 Potassium 3.2 mEq/L (3.5-5.1) L 05/15/19 19:55 Chloride 107 mEq/L (98-107) 05/15/19 19:55 Carbon Dioxide 18.8 mEq/L (21.0-31.0) L 05/15/19 19:55 Anion Gap 14.4 (7.0-16.0) 05/15/19 19:55 BUN 23 mg/dL (7-25) 05/15/19 19:55 Creatinine 1.2 mg/dL (0.7-1.3) 05/15/19 19:55 Est GFR ( Amer) > 60.0 ml/min (>90) 05/15/19 19:55 Est GFR (Non-Af Amer) > 60.0 ml/min 05/15/19 19:55 BUN/Creatinine Ratio 19.2 05/15/19 19:55 Glucose 190 mg/dL (70-105) H 05/15/19 19:55 POC Glucose 147 MG/DL (70 - 105) H 05/16/19 16:55 Calcium 8.8 mg/dL (8.6-10.3) 05/15/19 19:55 Total Bilirubin 2.1 mg/dL (0.3-1.0) H 05/15/19 19:55 AST 21 U/L (13-39) 05/15/19 19:55 ALT 17 U/L (7-52) 05/15/19 19:55 Alkaline Phosphatase 86 U/L (34-104) 05/15/19 19:55 Troponin I 0.03 ng/mL (0.01-0.05) 05/15/19 19:55 B-Natriuretic Peptide 23.4 pg/mL (5.0-100.0) 05/15/19 19:55 Total Protein 6.4 gm/dL (6.0-8.3) 05/15/19 19:55 Albumin 3.9 gm/dL (4.2-5.5) L 05/15/19 19:55 Globulin 2.5 gm/dL 05/15/19 19:55 Albumin/Globulin Ratio 1.6 (1.0-1.8) 05/15/19 19:55 Triglycerides mg/dL (<150) 05/15/19 19:55 Cholesterol mg/dL (<200) 05/15/19 19:55 LDL Cholesterol Direct mg/dL (75-193) 05/15/19 19:55 HDL Cholesterol mg/dL (23-92) 05/15/19 19:55 Free T4 0.85 ng/dL (0.82-1.77) 05/15/19 20:20 TSH 0.33 uIU/ml (0.34-5.60) L 05/15/19 19:55 Urine Source RANDOM 05/15/19 20:50 Urine Color YELLOW 05/15/19 20:50 Urine Clarity CLOUDY (CLEAR) 05/15/19 20:50 Urine pH 7.0 (4.6 - 8.0) 05/15/19 20:50 Ur Specific [place] 1.025 (1.005-1.030) 05/15/19 20:50 Urine Protein >=300 mg/dL (NEGATIVE) 05/15/19 20:50 Urine Glucose (UA) 100 mg/dL (NEGATIVE) H 05/15/19 20:50 Urine Ketones NEGATIVE mg/dL (NEGATIVE) 05/15/19 20:50 Urine Blood SMALL (NEGATIVE) H 05/15/19 20:50 Urine Nitrate POSITIVE (NEGATIVE) H 05/15/19 20:50 Urine Bilirubin NEGATIVE (NEGATIVE) 05/15/19 20:50 Urine Urobilinogen 1.0 E.U./dL (0.2 - 1.0) 05/15/19 20:50 Ur Leukocyte Esterase TRACE (NEGATIVE) H 05/15/19 20:50 Urine RBC 5-10 /hpf (0-5) H 05/15/19 20:50 Urine WBC 6-10 /hpf (0-5) 05/15/19 20:50 Ur Epithelial Cells FEW /lpf (FEW) 05/15/19 20:50 Triple Phos Crystals FEW /hpf (FEW) 05/15/19 20:50 Urine Bacteria 4+ /hpf (NONE SEEN) H 05/15/19 20:50 RPR NONREACTIVE (NONREACTIVE) 05/15/19 19:55 - Physical Exam Vitals and I&O: Vital Signs Temp 97.9 F 05/26/19 20:00 Pulse 72 05/26/19 20:00 Resp 19 05/26/19 20:00 BP 151/89 05/26/19 20:00 Pulse Ox 97 05/26/19 20:00 Intake & Output 05/26/19 05/27/19 05/27/19 18:59 06:59 18:59 Intake Total 1200 Balance 1200 Intake: Oral 1200 Other: # Bowel Movements 1 Stool Characteristics Soft Formed Brown Active Medications: Current Medications Acetaminophen (Tylenol) 650 mg PO Q4HR PRN PRN Reason: Pain or Fever >101 Stop: 07/14/19 23:09 Last Admin: 05/16/19 13:21 Dose: 650 mg Al Hydrox/Mg Hydrox/Simethicone (Maalox) 30 ml PO Q4H PRN PRN Reason: GI DISTRESS Amlodipine Besylate (Norvasc) 10 mg PO DAILY [facility] BEDS AT THE [facility] Stop: 07/22/19 08:59 Last Admin: 05/26/19 09:06 Dose: 10 mg Divalproex Sodium (Depakote Dr) 250 mg PO Q12HR COUNTS [facility]CLUDE 234 BEDS AT THE [facility]; Protocol Stop: 07/23/19 20:59 Last Admin: 05/26/19 20:59 Dose: 250 mg Docusate Sodium (Colace) 100 mg PO QPM MILA Stop: 07/15/19 16:59 Last Admin: 05/26/19 17:04 Dose: 100 mg Escitalopram Oxalate (Lexapro) 10 mg PO DAILY [facility]S [facility]CLUDE 234 BEDS AT THE [facility]; Protocol Stop: 07/15/19 08:59 Last Admin: 05/26/19 09:06 Dose: 10 mg Insulin Human Lispro (Humalog Insulin Sliding Scale) 0 units SUBQ ACHS [facility]S INCLUDE 234 BEDS AT THE [facility]; Protocol Stop: 07/15/19 07:29 Last Admin: 05/27/19 06:42 Dose: Not Given Lactobacillus Rhamnosus (Culturelle 15b) 1 each PO DAILY [facility]S [facility]CLUDE 234 BEDS AT THE [facility] Stop: 07/15/19 08:59 Last Admin: 05/26/19 09:07 Dose: Not Given Lorazepam (Ativan) 0.5 mg PO Q4HR PRN; Protocol PRN Reason: Anxiety Stop: 06/14/19 22:52 Magnesium Hydroxide (Milk Of Magnesia) 30 ml PO Q24H PRN PRN Reason: Constipation Stop: 07/14/19 23:09 Last Admin: 05/20/19 13:58 Dose: 30 ml Metformin HCl (Glucophage) 500 mg PO TIDWM COUNTS INCLUDE 234 BEDS AT THE [facility] Stop: 07/15/19 16:59 Last Admin: 05/26/19 17:03 Dose: 500 mg Miscellaneous (Probiotic Screen) 1 ea MC PRN PRN PRN Reason: PROTOCOL Stop: 07/17/19 11:44 Zolpidem Tartrate (Ambien) 5 mg PO HS PRN PRN Reason: Insomnia Stop: 07/14/19 22:52 Last Admin: 05/19/19 21:18 Dose: 5 mg General: Alert, No acute distress HEENT: Atraumatic, PERRLA, EOMI Neck: Supple Cardiovascular: Regular rate, Normal S1, Normal S2 Lungs: Clear to auscultation Abdomen: Bowel sounds Extremities: no Clubbing, no Cyanosis Neurological: Normal gait Assessment/Plan - Assessment Assessment: Psychosis UTI +Proteus Mirabilis hypokalemia Diabetes Mellitus HTN elevated Diabetes Mellitus Hyperthyroidism CVA Depression Bipolar disorder dysphagia, oral phase +MRSA nares - Plan Plan: Will admit to [facility] PO Potassium given in ER, repeat K+ this AM switched to Levoquin 500mg PO daily x 7days continue home meds bactroban ointment added will add clonidine PO PRN Nutritional Asmnt/Malnutr-PDOC - Dietary Evaluation Malnutrition Findings (Please click <Entered> for more info): Nutritional Asmnt/Malnutrition Start: 05/16/19 15: 34 Text: Status: Active Freq: Protocol: Document 05/16/19 15:34 LENA (Rec: 05/16/19 15:38 LENA [email or web address]) Nutritional Asmnt/Malnutrition Patient General Information Nutritional Screening Moderate Risk Consult Diagnosis Psychosis Pertinent Medical Hx/Surgical Hx HTN, DM, Hyperthyroidism, CVA, Depression, Bipolar disorder, Psychosis Subjective Information Pt is a 63-year-old male admitted on 05/15 from SNF d/t aggressive behavior, yelling, and refusing care. Pt ate 25% breakfast and 75% lunch today per Meal/Nutrition Activity Record. Will continue to monitor PO intake. Consult related to DM and neck stoma. Recommend to add CCHO to diet Rx for optimal glucose control if levels continue be out of normal limits. Visited Pt later afternoon today, Pt was in his wheelchair out in [place]. Checked neck stoma, it was healed, noted as possibly from previous tracheostomy. HT: 58 WT: 140 LB (63.64 kg) BMI: 21.29 (Normal) BM: Not Noted I/O: 250/100 (+150) Tam: 17 Diet Order: Mechanical Soft, NCS, ELIF Estimated Energy Needs: ( Geriatric, CBW) 8913-4052 kcals (25-30 kcals/ kg) 64-76g Pro (1.0-1.2 g/kg) 5402-8118 ml (25-30 ml/kg) Current Diet Order/ Nutrition Support Mechanical Soft, NCS, ELIF Pertinent Medications Maalox (PRN), Colace, INS-SS, Culturelle 15b, MOM (PRN), Glucophage Pertinent Labs 05/15: K 3.2, Glucose 190, T Bili 2.1, Alb 3.9 Nutritional Hx/Data Height 1.73 m Height (Calculated Centimeters) 172.7 Current Weight (lbs) 63.503 kg Weight (Calculated Kilograms) 63.5 Weight (Calculated Grams) 00781.9 [place] Body Weight 154 LB (70kg) % [place] Body Weight 91 Body Mass Index (BMI) 21.2 Weight Status Overweight GI Symptoms Skin Integrity/Comment: Tam: 17 Current %PO Fair (50-74%) Estimated Nutritional Goals BEE in Kcals: Using Current wt Calories/Kcals/Kg 25-30 Kcals Calculated 1858-7165 Protein: Using Current wt Protein g/k.0-1.2 Protein Calculated 64-76 Fluid: ml 2334-2375 ml (25-30 ml/kg) Nutritional Problem 1. Problem Problem Altered nutrition related labs Etiology r/t endocrine dysfunction Signs/Symptoms: aeb Hx DM, glucose 190. Malnutrition Related to Morbid Obesity Malnutrition related to morbid obesity No Intervention/Recommendation Comments 1. Continue with Mechanical Soft, NCS, ELIF diet as ordered . 2. Consider CCHO diet Rx for optimal glucose control if levels continue be out of normal limits. Expected Outcomes/Goals Expected Outcomes/Goals 1. PO intake to meet 75% of nutritional needs. 2. Monitor PO intake, wt, skin integrity, and nutrition related labs to trend WNL. 3. F/U as low risk in 7 days, 05/23
[2019-05-27] MEDS: Lactobacillus Rhamnosus GG 15 Billion CFU CAP.SPRINK PO SCH (08:44)
[2019-05-27] MEDS: Multivitamin w/ Minerals Tab PO SCH (08:45)
--- NOTE | 2019-05-28 05:47 | Progress Notes ---
DATE: 05/27/2019 SUBJECTIVE: The patient is currently in the hospital, still noted to be impulsive, unpredictable. However, he has been generally calmer, more cooperative. No overt agitation, no escalation of behaviors, likely approaching his baseline. Fair sleep, fair appetite. We will continue to monitor. We will attempt to confirm placement as well. JOB# [id number]
[2019-05-28] MEDS: INSULIN LISPRO SLIDING SCALE 100 UNITS/ML UNIT SUBQ SCH ×4 (06:44→21:17)
[2019-05-28] MEDS: Multivitamin w/ Minerals Tab PO SCH (08:24)
[2019-05-28] MEDS: Lactobacillus Rhamnosus GG 15 Billion CFU CAP.SPRINK PO SCH (08:25)
--- NOTE | 2019-05-28 08:58 | General Progress Note ---
Subjective - Review of Systems Service Date: 05/28/19 Subjective: Awake, alert, no acute distress VS T 97.1 P 62 R 19 BP 124/68 Objective - Results Result Diagrams: 05/15/19 19:55 05/15/19 19:55 Recent Labs: Laboratory Last Values WBC 6.7 Th/cmm (4.8-10.8) 05/15/19 19:55 RBC 5.24 Mil/cmm (3.80-5.80) 05/15/19 19:55 Hgb 17.1 gm/dL (12-16) 05/15/19 19:55 Hct 51.4 % (41.0-60) 05/15/19 19:55 MCV 98.0 fl (80-99) 05/15/19 19:55 MCH 32.6 pg (27.0-31.0) H 05/15/19 19:55 MCHC Differential 33.3 pg (28.0-36.0) 05/15/19 19:55 RDW 12.1 % (11.5-20.0) 05/15/19 19:55 Plt Count 146 Th/cmm (150-400) L 05/15/19 19:55 MPV 8.9 fl 05/15/19 19:55 Neutrophils % 66.5 % (40.0-80.0) 05/15/19 19:55 Lymphocytes % 24.5 % (20.0-50.0) 05/15/19 19:55 Monocytes % 6.9 % (2.0-10.0) 05/15/19 19:55 Eosinophils % 1.4 % (0.0-5.0) 05/15/19 19:55 Basophils % 0.7 % (0.0-2.0) 05/15/19 19:55 Sodium 137 mEq/L (136-145) 05/15/19 19:55 Potassium 3.2 mEq/L (3.5-5.1) L 05/15/19 19:55 Chloride 107 mEq/L (98-107) 05/15/19 19:55 Carbon Dioxide 18.8 mEq/L (21.0-31.0) L 05/15/19 19:55 Anion Gap 14.4 (7.0-16.0) 05/15/19 19:55 BUN 23 mg/dL (7-25) 05/15/19 19:55 Creatinine 1.2 mg/dL (0.7-1.3) 05/15/19 19:55 Est GFR ( Amer) > 60.0 ml/min (>90) 05/15/19 19:55 Est GFR (Non-Af Amer) > 60.0 ml/min 05/15/19 19:55 BUN/Creatinine Ratio 19.2 05/15/19 19:55 Glucose 190 mg/dL (70-105) H 05/15/19 19:55 POC Glucose 147 MG/DL (70 - 105) H 05/16/19 16:55 Calcium 8.8 mg/dL (8.6-10.3) 05/15/19 19:55 Total Bilirubin 2.1 mg/dL (0.3-1.0) H 05/15/19 19:55 AST 21 U/L (13-39) 05/15/19 19:55 ALT 17 U/L (7-52) 05/15/19 19:55 Alkaline Phosphatase 86 U/L (34-104) 05/15/19 19:55 Troponin I 0.03 ng/mL (0.01-0.05) 05/15/19 19:55 B-Natriuretic Peptide 23.4 pg/mL (5.0-100.0) 05/15/19 19:55 Total Protein 6.4 gm/dL (6.0-8.3) 05/15/19 19:55 Albumin 3.9 gm/dL (4.2-5.5) L 05/15/19 19:55 Globulin 2.5 gm/dL 05/15/19 19:55 Albumin/Globulin Ratio 1.6 (1.0-1.8) 05/15/19 19:55 Triglycerides mg/dL (<150) 05/15/19 19:55 Cholesterol mg/dL (<200) 05/15/19 19:55 LDL Cholesterol Direct mg/dL (75-193) 05/15/19 19:55 HDL Cholesterol mg/dL (23-92) 05/15/19 19:55 Free T4 0.85 ng/dL (0.82-1.77) 05/15/19 20:20 TSH 0.33 uIU/ml (0.34-5.60) L 05/15/19 19:55 Urine Source RANDOM 05/15/19 20:50 Urine Color YELLOW 05/15/19 20:50 Urine Clarity CLOUDY (CLEAR) 05/15/19 20:50 Urine pH 7.0 (4.6 - 8.0) 05/15/19 20:50 Ur Specific [place] 1.025 (1.005-1.030) 05/15/19 20:50 Urine Protein >=300 mg/dL (NEGATIVE) 05/15/19 20:50 Urine Glucose (UA) 100 mg/dL (NEGATIVE) H 05/15/19 20:50 Urine Ketones NEGATIVE mg/dL (NEGATIVE) 05/15/19 20:50 Urine Blood SMALL (NEGATIVE) H 05/15/19 20:50 Urine Nitrate POSITIVE (NEGATIVE) H 05/15/19 20:50 Urine Bilirubin NEGATIVE (NEGATIVE) 05/15/19 20:50 Urine Urobilinogen 1.0 E.U./dL (0.2 - 1.0) 05/15/19 20:50 Ur Leukocyte Esterase TRACE (NEGATIVE) H 05/15/19 20:50 Urine RBC 5-10 /hpf (0-5) H 05/15/19 20:50 Urine WBC 6-10 /hpf (0-5) 05/15/19 20:50 Ur Epithelial Cells FEW /lpf (FEW) 05/15/19 20:50 Triple Phos Crystals FEW /hpf (FEW) 05/15/19 20:50 Urine Bacteria 4+ /hpf (NONE SEEN) H 05/15/19 20:50 RPR NONREACTIVE (NONREACTIVE) 05/15/19 19:55 - Physical Exam Vitals and I&O: Vital Signs Temp 97.1 F 05/28/19 06:37 Pulse 62 05/28/19 08:23 Resp 19 05/28/19 06:37 BP 124/68 05/28/19 08:23 Pulse Ox 98 05/28/19 06:37 Intake & Output 05/27/19 05/28/19 05/28/19 18:59 06:59 18:59 Intake Total 1350 120 Balance 1350 120 Intake: Oral 1350 120 Other: # Voids 3 # Bowel Movements 1 Stool Characteristics Soft Formed Brown Active Medications: Current Medications Acetaminophen (Tylenol) 650 mg PO Q4HR PRN PRN Reason: Pain or Fever >101 Stop: 07/14/19 23:09 Last Admin: 05/16/19 13:21 Dose: 650 mg Al Hydrox/Mg Hydrox/Simethicone (Maalox) 30 ml PO Q4H PRN PRN Reason: GI DISTRESS Amlodipine Besylate (Norvasc) 10 mg PO DAILY [facility] Stop: 07/22/19 08:59 Last Admin: 05/28/19 08:23 Dose: 10 mg Divalproex Sodium (Depakote Dr) 250 mg PO Q12HR MILA; Protocol Stop: 07/23/19 20:59 Last Admin: 05/28/19 08:23 Dose: 250 mg Docusate Sodium (Colace) 100 mg PO QPM MILA Stop: 07/15/19 16:59 Last Admin: 05/26/19 17:04 Dose: 100 mg Escitalopram Oxalate (Lexapro) 10 mg PO DAILY [facility]; Protocol Stop: 07/15/19 08:59 Last Admin: 05/28/19 08:24 Dose: 10 mg Insulin Human Lispro (Humalog Insulin Sliding Scale) 0 units SUBQ ACHS MILA; Protocol Stop: 07/15/19 07:29 Last Admin: 05/28/19 06:44 Dose: Not Given Lactobacillus Rhamnosus (Culturelle 15b) 1 each PO DAILY [facility] Stop: 07/15/19 08:59 Last Admin: 05/28/19 08:25 Dose: 1 each Lorazepam (Ativan) 0.5 mg PO Q4HR PRN; Protocol PRN Reason: Anxiety Stop: 06/14/19 22:52 Magnesium Hydroxide (Milk Of Magnesia) 30 ml PO Q24H PRN PRN Reason: Constipation Stop: 07/14/19 23:09 Last Admin: 05/20/19 13:58 Dose: 30 ml Metformin HCl (Glucophage) 500 mg PO TIDWM MILA Stop: 07/15/19 16:59 Last Admin: 05/28/19 08:24 Dose: 500 mg Miscellaneous (Probiotic Screen) 1 ea MC PRN PRN PRN Reason: PROTOCOL Stop: 07/17/19 11:44 Zolpidem Tartrate (Ambien) 5 mg PO HS PRN PRN Reason: Insomnia Stop: 07/14/19 22:52 Last Admin: 05/19/19 21:18 Dose: 5 mg General: Alert, No acute distress HEENT: Atraumatic, PERRLA, EOMI Neck: Supple Cardiovascular: Regular rate, Normal S1, Normal S2 Lungs: Clear to auscultation Abdomen: Bowel sounds Extremities: no Clubbing, no Cyanosis Neurological: Normal gait Assessment/Plan - Assessment Assessment: Psychosis UTI +Proteus Mirabilis hypokalemia Diabetes Mellitus HTN elevated Diabetes Mellitus Hyperthyroidism CVA Depression Bipolar disorder dysphagia, oral phase +MRSA nares - Plan Plan: Will admit to [facility] PO Potassium given in ER, repeat K+ this AM switched to Levoquin 500mg PO daily x 7days continue home meds bactroban ointment added will add clonidine PO PRN Nutritional Asmnt/Malnutr-PDOC - Dietary Evaluation Malnutrition Findings (Please click <Entered> for more info): Nutritional Asmnt/Malnutrition Start: 05/16/19 15: 34 Text: Status: Active Freq: Protocol: Document 05/16/19 15:34 LENA (Rec: 05/16/19 15:38 [email or web address] [email or web address]) Nutritional Asmnt/Malnutrition Patient General Information Nutritional Screening Moderate Risk Consult Diagnosis Psychosis Pertinent Medical Hx/Surgical Hx HTN, DM, Hyperthyroidism, CVA, Depression, Bipolar disorder, Psychosis Subjective Information Pt is a 63-year-old male admitted on 05/15 from SNF d/t aggressive behavior, yelling, and refusing care. Pt ate 25% breakfast and 75% lunch today per Meal/Nutrition Activity Record. Will continue to monitor PO intake. Consult related to DM and neck stoma. Recommend to add CCHO to diet Rx for optimal glucose control if levels continue be out of normal limits. Visited Pt later afternoon today, Pt was in his wheelchair out in the [place]. Checked neck stoma, it was healed, noted as possibly from previous tracheostomy. HT: 58 WT: 140 LB (63.64 kg) BMI: 21.29 (Normal) BM: Not Noted I/O: 250/100 (+150) Tam: 17 Diet Order: Mechanical Soft, NCS, ELIF Estimated Energy Needs: ( Geriatric, CBW) 8606-7200 kcals (25-30 kcals/ kg) 64-76g Pro (1.0-1.2 g/kg) 0732-4269 ml (25-30 ml/kg) Current Diet Order/ Nutrition Support Mechanical Soft, NCS, ELIF Pertinent Medications Maalox (PRN), Colace, INS-SS, Culturelle 15b, MOM (PRN), Glucophage Pertinent Labs 05/15: K 3.2, Glucose 190, T Bili 2.1, Alb 3.9 Nutritional Hx/Data Height 1.73 m Height (Calculated Centimeters) 172.7 Current Weight (lbs) 63.503 kg Weight (Calculated Kilograms) 63.5 Weight (Calculated Grams) 68013.9 [place] Body Weight 154 LB (70kg) % [place] Body Weight 91 Body Mass Index (BMI) 21.2 Weight Status Overweight GI Symptoms Skin Integrity/Comment: Tam: 17 Current %PO Fair (50-74%) Estimated Nutritional Goals BEE in Kcals: Using Current wt Calories/Kcals/Kg 25-30 Kcals Calculated 7876-0847 Protein: Using Current wt Protein g/k.0-1.2 Protein Calculated 64-76 Fluid: ml 6352-5960 ml (25-30 ml/kg) Nutritional Problem 1. Problem Problem Altered nutrition related labs Etiology r/t endocrine dysfunction Signs/Symptoms: aeb Hx DM, glucose 190. Malnutrition Related to Morbid Obesity Malnutrition related to morbid obesity No Intervention/Recommendation Comments 1. Continue with Mechanical Soft, NCS, ELIF diet as ordered . 2. Consider CCHO diet Rx for optimal glucose control if levels continue be out of normal limits. Expected Outcomes/Goals Expected Outcomes/Goals 1. PO intake to meet 75% of nutritional needs. 2. Monitor PO intake, wt, skin integrity, and nutrition related labs to trend WNL. 3. F/U as low risk in 7 days, 05/23
--- NOTE | 2019-05-28 23:46 | Progress Notes ---
DATE: 05/28/2019 SUBJECTIVE: The patient is currently in the hospital, seems to be improving, generally calmer, more cooperative, no agitation, no escalation of behaviors, sometimes takes medications, sometimes does not, erratic compliance, verbally responsive, sometimes curses, is more verbal than anything, likely approaching his baseline. Fair sleep, fair appetite. I have seen him over the past few days and he has been pretty calm. ASSESSMENT: The patient likely approaching his baseline. PLAN: We will monitor for further 24 hours. JOB# [id number]
[2019-05-29] MEDS: INSULIN LISPRO SLIDING SCALE 100 UNITS/ML UNIT SUBQ SCH ×2 (06:52→11:56)
[2019-05-29] MEDS: Lactobacillus Rhamnosus GG 15 Billion CFU CAP.SPRINK PO SCH (09:04)
[2019-05-29] MEDS: Multivitamin w/ Minerals Tab PO SCH (09:04)
--- NOTE | 2019-05-30 00:09 | Progress Notes ---
DATE: 05/29/2019 SUBJECTIVE: The patient in the hospital. Generally calmer, more cooperative. I am trying to discharge him today. We are trying to confirm placements, some pushback from residential. Otherwise calm, generally cooperative, erratic medication compliance. We will continue to monitor. JOB# [id number]
== END 2019-05-29 17:20 | DRG 885 ==
LOC: ER 19:35 → GERO 21:50
PROVIDERS: ADMIT Psychiatry & Neurology Psychiatry; ATTEND Psychiatry & Neurology Psychiatry
DX: F31.9 Bipolar disorder, unspecified (principal); Z93.0 Tracheostomy status; N39.0 Urinary tract infection, site not specified; F39 Unspecified mood [affective] disorder; F41.9 Anxiety disorder, unspecified; E87.6 Hypokalemia; E11.9 Type 2 diabetes mellitus without complications; I10 Essential (primary) hypertension; E05.90 Thyrotoxicosis, unspecified without thyrotoxic crisis or storm; M19.90 Unspecified osteoarthritis, unspecified site; F03.90 Unspecified dementia, unspecified severity, without behavioral disturbance, psychotic disturbance, mood disturbance, and anxiety; R13.11 Dysphagia, oral phase; B96.4 Proteus (mirabilis) (morganii) as the cause of diseases classified elsewhere; B95.62 Methicillin resistant Staphylococcus aureus infection as the cause of diseases classified elsewhere; Z86.73 Personal history of transient ischemic attack (TIA), and cerebral infarction without residual deficits; Z79.899 Other long term (current) drug therapy
CPT/HCPCS: 36415-UA; 80053-TC; 80061-TC; 81001-TC; 82948-90; 83036-90; 83880-TC; 84439-90; 84443-TC; 84484-TC; 85025-TC; 86592-TC; 87086-90; 93005; G0410; Z7610